=== PATIENT | female | born 1955 | race Caucasian/White ===

== ENCOUNTER → 2017-05-30 16:45 | Outpatient (CLI) | payer MEDICAID, SELFPAY ==
[2017-05-30 13:06] LABS: Vitamin D,25 Hydroxy 16.2 ng/mL (19.95-100.01)
== END ==
PROVIDERS: Family Provider Family Medicine; PCP Family Medicine; Visit Provider Family Medicine
DX: E55.9 Vitamin D deficiency, unspecified (principal)
CPT/HCPCS: 36415; 82306

== ENCOUNTER → 2017-11-28 10:45 | Outpatient (CLI) | payer MEDICAID, SELFPAY ==
[2017-11-28 13:12] LABS: Anion Gap 9 (5-15); BUN 18 mg/dL (7-18); BUN/Creat Ratio 16.7 RATIO (10-20); Calcium,Total 9.1 mg/dL (8.5-10.1); Chloride 107 mmol/L (98-107); Cholesterol 135 mg/dL (200); Creatinine, Serum 1.08 mg/dL (0.55-1.02); EST Glomerular Filtration Rate 54 mL/min (>60); Est Glom Filt Rate - Afr Amer 66 mL/min (>60); Glucose 74 mg/dL (74-106); High Density Lipoprotein 53 mg/dL; Potassium 4.4 mmol/L (3.5-5.1); Sodium Level 141 mmol/L (136-145); Triglycerides 93 mg/dL; Very Low Density Lipoprotein 19 mg/dL (5-40)
[2017-11-28 13:21] LABS: Vitamin D,25 Hydroxy 34.1 ng/mL (29.95-100.01)
== END ==
PROVIDERS: Family Provider Family Medicine; PCP Family Medicine; Visit Provider Family Medicine
DX: Z00.00 Encounter for general adult medical examination without abnormal findings (principal); E55.9 Vitamin D deficiency, unspecified
CPT/HCPCS: 36415; 80048; 80061; 82306

== ENCOUNTER → 2018-02-05 14:36 | Outpatient (CLI) | payer MEDICAID, SELFPAY ==
--- NOTE | 2018-02-05 14:39 | BI_ITS ---
MAMMOGRAPHY - BILATERAL SCREENING REASON FOR EXAM: Female, 62 years old. Routine annual screening examination. PERTINENT HISTORY: Non-contributory. TECHNIQUE: Digital bilateral breast idalia (3D mammographic acquisition) in the CC and MLO projections. 2-D mediolateral oblique (MLO) and craniocaudad (CC) views of both breasts were obtained. CAD: Full Field Digital Mammography with Computer Added Detection was performed. COMPARISON: Comparison is made with prior study dated January 24, 2017 and January 24, 2016. FINDINGS: Breast Composition: There are scattered areas of fibroglandular density. There are no dominant masses or suspicious calcifications. Stable 5 mm well-defined nodule in the upper lateral aspect of the right breast. No other significant abnormalities are identified. There has been no significant change since the prior study. BI/SCREENING MAMM (CAD), BILAT IMPRESSION: Stable bilateral screening mammogram. Yearly follow-up mammogram recommended. (A) ASSESSMENT CATEGORY: BIRADS Category 2: Benign. A letter regarding these results will be sent to the patient by the facility within 30 days. Approximately 10% of breast cancers are not detected by mammography. A normal mammogram should not delay biopsy of a clinically suspicious abnormality. [id number] Electronically Signed: Kev Menendez MD at 15:48 EDT Tel [phone], Service support ,
== END ==
PROVIDERS: Family Provider Family Medicine; PCP Family Medicine; Visit Provider Family Medicine
DX: Z12.31 Encounter for screening mammogram for malignant neoplasm of breast (principal)
CPT/HCPCS: 77063; 77067

== ENCOUNTER → 2018-08-06 | Outpatient (CLI) | payer MEDICARE, SELFPAY ==
[2018-08-09 13:08] LABS: HPV Reflexed? NOT INDICATED
== END | disposition home or self-care (01) ==
PROVIDERS: Family Provider Family Medicine; PCP Family Medicine; Referring Provider Nurse Practitioner Adult Health; Visit Provider Nurse Practitioner Adult Health
DX: Z01.419 Encounter for gynecological examination (general) (routine) without abnormal findings (principal)
CPT/HCPCS: 88175; G0145

== ENCOUNTER → 2019-02-05 15:41 | Outpatient (CLI) | payer MEDICARE, SELFPAY ==
--- NOTE | 2019-02-05 15:44 | BI_ITS ---
MAMMOGRAPHY - BILATERAL SCREENING REASON FOR EXAM: Female, 63 years old. Routine annual screening examination. PERTINENT HISTORY: Sister with breast cancer. TECHNIQUE: Digital bilateral breast eduar (3D mammographic acquisition) in the CC and MLO projections. 2-D mediolateral oblique (MLO) and craniocaudad (CC) views of both breasts were obtained. CAD: Full Field Digital Mammography with Computer Added Detection was performed. COMPARISON: Comparison is made with prior examination dated February 05, 2018 and January 24, 2017. FINDINGS: Breast Composition: There are scattered areas of fibroglandular density. There are no dominant masses or suspicious calcifications. Stable 5 mm well-defined nodule in the upper lateral aspect of the right breast. No other significant abnormalities are identified. There has been no significant change since the prior study. BI/SCREEN MAMM (CAD) W/EDUAR BILAT IMPRESSION: Stable bilateral screening mammogram. Yearly follow-up mammogram recommended. (A) ASSESSMENT CATEGORY: BIRADS Category 2: Benign. A letter regarding these results will be sent to the patient by the facility within 30 days. Approximately 10% of breast cancers are not detected by mammography. A normal mammogram should not delay biopsy of a clinically suspicious abnormality. [id number] Electronically Signed: Kev Menendez, at 8:31 EDT , Service support ,
== END ==
PROVIDERS: Family Provider Family Medicine; PCP Family Medicine; Referring Provider Nurse Practitioner Adult Health; Visit Provider Nurse Practitioner Adult Health
DX: Z12.31 Encounter for screening mammogram for malignant neoplasm of breast (principal)
CPT/HCPCS: 77063; 77067

== ENCOUNTER → 2019-05-07 16:04 | Outpatient (CLI) | payer MEDICARE, SELFPAY ==
--- NOTE | 2019-05-07 16:07 | MRI_ITS ---
STUDY: MRI BRAIN WITH AND WITHOUT CONTRAST REASON FOR EXAM: Female, 64 years old. ATAXIA -- vertigo x 1month, rt ear pain and tinnitus TECHNIQUE: Standardized multiplanar fat and water weighted pulse sequences were obtained. Dotarem 18ml iv was administered for the contrast portion of the examination. COMPARISON: 07/30/2007. FINDINGS: No intracranial mass, mass effect, or midline shift. No enhancing lesion following the administration of contrast. No territorial infarct or acute ischemia. Normal internal auditory canals bilaterally. 7th and 8th cranial nerves are unremarkable. No abnormal enhancement. Normal size of the ventricles and extra-axial spaces for the patient''s age. There are a limited number of small white matter hyperintensities, distributed throughout the deep white matter tracts of the cerebral hemispheres, consistent with mild chronic white matter ischemic changes. There is no extra-axial fluid accumulation. Normal flow voids within the major intracranial circulation suggesting patency by spin echo criteria. There is no enhancing intra-axial or extra-axial abnormality. Normal sella turcica, pituitary gland, infundibular stalk, optic chiasm and hypothalamus. Normal midbrain, kellen and medulla. Normal cerebellum. Normal basal cisterns. Normal bilateral temporal bones. No demonstrated orbital abnormality, within the constraints of a routine brain study. Normal visualized paranasal sinuses. Normal calvarium and skull base. Normal visualized soft tissue structures. Normal visualized upper cervical spine. MRI/Brain W/WO Contrast IMPRESSION: 1. Mild microvascular ischemic changes. Otherwise negative study. Normal IACs. Electronically Signed: Brittany Monge MD at 21:45 EST Tel , Service support ,
[2019-05-07 16:45] LABS: CREATININE FINGERSTICK 0.8 mg/dL (0.55-1.02); EGFR FINGERSTICK > 60.0000 mL/min (>60)
== END ==
PROVIDERS: PCP Family Medicine; Referring Provider Otolaryngology Otolaryngology/Facial Plastic Surgery; Visit Provider Otolaryngology Otolaryngology/Facial Plastic Surgery
DX: R27.0 Ataxia, unspecified (principal)
CPT/HCPCS: 70553; A9575

== ENCOUNTER → 2019-12-03 08:39 | Outpatient (CLI) | payer MEDICARE, SELFPAY ==
[2019-12-03 10:13] LABS: Anion Gap 3 (5-15); BUN 21 mg/dL (7-18); BUN/Creat Ratio 18.1 RATIO (10-20); Calcium,Total 9.3 mg/dL (8.5-10.1); Chloride 110 mmol/L (98-107); Creatinine, Serum 1.16 mg/dL (0.55-1.02); EST Glomerular Filtration Rate 50 mL/min (>60); Est Glom Filt Rate - Afr Amer 60 mL/min (>60); Glucose 93 mg/dL (74-106); Potassium 4.6 mmol/L (3.5-5.1); Sodium Level 142 mmol/L (136-145)
[2019-12-03 10:19] LABS: Vitamin D,25 Hydroxy 51.6 ng/mL
== END ==
PROVIDERS: PCP Family Medicine; Referring Provider Family Medicine; Visit Provider Family Medicine
DX: Z00.00 Encounter for general adult medical examination without abnormal findings (principal); E55.9 Vitamin D deficiency, unspecified
CPT/HCPCS: 36415; 80048; 82306

== ENCOUNTER → 2020-02-09 15:26 | Outpatient (CLI) | payer MEDICARE, SELFPAY ==
--- NOTE | 2020-02-09 15:27 | BI_ITS ---
MAMMOGRAPHY - BILATERAL SCREENING REASON FOR EXAM: Female, 64 years old. Routine annual screening examination. PERTINENT HISTORY: Sister with breast cancer. TECHNIQUE: Digital bilateral breast eduar (3D mammographic acquisition) in the CC and MLO projections. 2-D mediolateral oblique (MLO) and craniocaudad (CC) views of both breasts were obtained. CAD: Full Field Digital Mammography with Computer Added Detection was performed. COMPARISON: Comparison is made with prior study dated 02/05/2019 and 02/05/2018. FINDINGS: Breast Composition: There are scattered areas of fibroglandular density. Stable 5 mm well-defined nodule in the upper lateral aspect of the right breast. Stable benign-appearing bilateral axillary lymph nodes. There are no dominant masses or suspicious calcifications. No other significant abnormalities are identified. There has been no significant change since the prior study. BI/SCREEN MAMM (CAD) W/EDUAR BILAT IMPRESSION: Stable bilateral screening mammogram. Yearly follow-up mammogram recommended. (A) ASSESSMENT CATEGORY: BIRADS Category 2: Benign. A letter regarding these results will be sent to the patient by the facility within 30 days. Approximately 10% of breast cancers are not detected by mammography. A normal mammogram should not delay biopsy of a clinically suspicious abnormality. [id number] Electronically Signed: Kev Menendez, at 8:30 EST , Service support ,
== END ==
PROVIDERS: PCP Family Medicine; Referring Provider Family Medicine; Visit Provider Family Medicine
DX: Z12.31 Encounter for screening mammogram for malignant neoplasm of breast (principal)
CPT/HCPCS: 77063; 77067

== ENCOUNTER → 2020-12-11 08:29 | Outpatient (CLI) | payer MEDICARE, SELFPAY ==
[2020-12-11 09:26] LABS: Anion Gap 3 (5-15); BUN 21 mg/dL (7-18); BUN/Creat Ratio 17.4 RATIO (10-20); Calcium,Total 9.5 mg/dL (8.5-10.1); Chloride 110 mmol/L (98-107); Cholesterol 144 mg/dL (200); Creatinine, Serum 1.21 mg/dL (0.55-1.02); EST Glomerular Filtration Rate 47 mL/min (>60); Est Glom Filt Rate - Afr Amer 57 mL/min (>60); Glucose 94 mg/dL (74-106); High Density Lipoprotein 63 mg/dL; Potassium 4.6 mmol/L (3.5-5.1); Sodium Level 142 mmol/L (136-145); Triglycerides 81 mg/dL; Very Low Density Lipoprotein 16 mg/dL (5-40)
== END ==
PROVIDERS: PCP Family Medicine; Referring Provider Family Medicine; Visit Provider Family Medicine
DX: Z00.00 Encounter for general adult medical examination without abnormal findings (principal); Z13.6 Encounter for screening for cardiovascular disorders
CPT/HCPCS: 36415; 80048; 80061

== ENCOUNTER → 2021-02-09 09:48 | Outpatient (CLI) | payer MEDICARE, SELFPAY ==
--- NOTE | 2021-02-09 09:50 | BI_ITS ---
MAMMOGRAPHY - BILATERAL SCREENING REASON FOR EXAM: Female, 65 years old. Routine annual screening examination. PERTINENT HISTORY: Sister with breast cancer. TECHNIQUE: Digital bilateral breast eduar (3D mammographic acquisition) in the CC and MLO projections. 2-D mediolateral oblique (MLO) and craniocaudad (CC) views of both breasts were obtained. CAD: Full Field Digital Mammography with Computer Added Detection was performed. COMPARISON: Comparison is made with prior study 02/09/2020 and 02/05/2019. FINDINGS: Breast Composition: There are scattered areas of fibroglandular density. There are no dominant masses or suspicious calcifications. Slight decrease in size of the well-defined nodule in the upper lateral aspect of the right breast. It presently measures 3.5 mm. No other significant abnormalities are identified. There has been no significant change since the prior study. BI/SCRN MAMM (CAD)W/EDUAR BILAT IMPRESSION: Stable bilateral screening mammogram. Yearly follow-up mammogram recommended. (A) ASSESSMENT CATEGORY: BIRADS Category 2: Benign. A letter regarding these results will be sent to the patient by the facility within 30 days. Approximately 10% of breast cancers are not detected by mammography. A normal mammogram should not delay biopsy of a clinically suspicious abnormality. [id number] Electronically Signed: Kev Menendez MD at 10:57 EDT , Service support ,
--- NOTE | 2021-02-09 09:54 | BD_ITS ---
STUDY: DUAL ENERGY X-RAY ABSORPTIOMETRY / DXA REASON FOR EXAM: Female, 65 years old. [id number]. The patient is postmenopausal. TECHNIQUE: Bone Mineral Density (BMD) measurements of lumbar spine and bilateral hips were obtained. COMPARISON: Comparison is made with prior study dated 01/24/2017. FINDINGS: Lumbar Spine (L1-L4): g/cm2 (0.886) / T-score (-1.5) / Z-score (0.5) Findings are suggestive of osteopenia with a low fracture risk. Left Femur Total: g/cm2 (0.776) / T-score (-1.4) / Z-score (0.0) Left Femoral Neck: g/cm2 (0.723) / T-score (-1.1) / Z-score (0.5) Right Femur Total: g/cm2 (0.744) / T-score (-1.6) / Z-score (-0.2) Right Femoral Neck: g/cm2 (0.718) / T-score (-1.2) / Z-score (0.5) The T-Scores on the most recent prior examination were: Lumbar Spine (L1-L4): There has been worsening of bone density since the previous examination. Left Femur Total: which represents a worsening of 6.6%. Right Femur Total: which represents a worsening of 10.4%. BD/Dexa Bone Density Study IMPRESSION: The patient is considered osteopenic as outlined below according to World Evans Organization (WHO) criteria with a moderate fracture risk. There has been worsening of bone density since the previous examination. Reference Information: The T-score is the number of standard deviations above or below the standard which is normal for young adults at their peak bone mineral density. The World Health Organization (WHO) interprets the T-scores as follows: Above -1 Normal bone density Between -1 and -2.5 Osteopenia Equal to / or below -2.5 Osteoporosis As a practical clinical guideline, osteopenia may be graded as follows: Mild -1 through -1.5 Moderate -1.6 through -2.0 Severe -2.1 through -2.4 The Z-score is the number of standard deviations above or below age-matched controls. A Z-score of less than -1.5 would be considered abnormal. References: 1. NIH Osteoporosis and Related Bone Diseases www osteo.org 2. International Society for Clinical Densitometry www iscd.org 3. National Osteoporosis Foundation www nof.org Electronically Signed: Kev Menendez MD at 12:56 EDT , Service support ,
== END ==
PROVIDERS: PCP Family Medicine; Referring Provider Family Medicine; Visit Provider Family Medicine
DX: Z12.31 Encounter for screening mammogram for malignant neoplasm of breast (principal); N95.9 Unspecified menopausal and perimenopausal disorder
CPT/HCPCS: 77063; 77067; 77080

== ENCOUNTER → 2021-12-10 | Outpatient (CLI) | payer MEDICARE, SELFPAY ==
[2021-12-10 10:01] LABS: Anion Gap 5 (5-15); BUN 18 mg/dL (7-18); BUN/Creat Ratio 14.6 RATIO (10-20); Calcium,Total 9.6 mg/dL (8.5-10.1); Chloride 111 mmol/L (98-107); Creatinine, Serum 1.23 mg/dL (0.55-1.02); EST Glomerular Filtration Rate 46 mL/min (>60); Est Glom Filt Rate - Afr Amer 56 mL/min (>60); Glucose 98 mg/dL (74-106); Potassium 4.3 mmol/L (3.5-5.1); Sodium Level 144 mmol/L (136-145)
[2021-12-12 08:28] LABS: Vitamin D,25 Hydroxy 54.5 ng/mL
== END | disposition home or self-care (01) ==
LOC: LAB 09:06
PROVIDERS: PCP Family Medicine; Visit Provider Family Medicine
DX: Z00.00 Encounter for general adult medical examination without abnormal findings (principal); E55.9 Vitamin D deficiency, unspecified
CPT/HCPCS: 36415; 80048; 82306

== ENCOUNTER → 2022-02-10 | Outpatient (CLI) | payer MEDICARE, SELFPAY ==
--- NOTE | 2022-02-10 12:07 | BI_ITS ---
MAMMOGRAPHY - BILATERAL SCREENING REASON FOR EXAM: Female, 66 years old. Routine annual screening examination. PERTINENT HISTORY: Sister with breast cancer. TECHNIQUE: Digital bilateral breast eduar (3D mammographic acquisition) in the CC and MLO projections. 2-D mediolateral oblique (MLO) and craniocaudad (CC) views of both breasts were obtained. CAD: Full Field Digital Mammography with Computer Added Detection was performed. COMPARISON: Comparison is made with prior study 02/09/2021 and 02/09/2020 FINDINGS: Breast Composition: There are scattered areas of fibroglandular density. There are no dominant masses or suspicious calcifications. Stable 3.5 mm well-defined nodule in the anterior upper lateral aspect of the right breast. No other significant abnormalities are identified. There has been no significant change since the prior study. BI/SCRN MAMM (CAD)W/EDUAR BILAT IMPRESSION: Stable bilateral screening mammogram. Yearly follow-up mammogram recommended. (A) ASSESSMENT CATEGORY: BIRADS Category 2: Benign. A letter regarding these results will be sent to the patient by the facility within 30 days. Approximately 10% of breast cancers are not detected by mammography. A normal mammogram should not delay biopsy of a clinically suspicious abnormality. [id number] Electronically Signed: Kev Menendez MD at 13:03 EDT ,
== END | disposition home or self-care (01) ==
LOC: OPBI 12:06
PROVIDERS: PCP Family Medicine; Visit Provider Family Medicine
DX: Z12.31 Encounter for screening mammogram for malignant neoplasm of breast (principal)
CPT/HCPCS: 77063; 77067

== ENCOUNTER → 2022-12-07 | Outpatient (CLI) | payer MEDICARE, SELFPAY ==
[2022-12-07 18:40] LABS: Vitamin D,25 Hydroxy 58.4 ng/mL
[2022-12-07 18:56] LABS: Anion Gap 6 (5-15); BUN 16 mg/dL (7-18); Calcium,Total 9.5 mg/dL (8.5-10.1); Chloride 109 mmol/L (98-107); Cholesterol 135 mg/dL (200); Creatinine, Serum 1.14 mg/dL (0.55-1.02); EST Glomerular Filtration Rate 50 mL/min (>60); Est Glom Filt Rate - Afr Amer 61 mL/min (>60); Glucose 86 mg/dL (74-106); High Density Lipoprotein 65 mg/dL; Potassium 4.4 mmol/L (3.5-5.1); Sodium Level 140 mmol/L (136-145); Triglycerides 60 mg/dL; Very Low Density Lipoprotein 12 mg/dL (5-40)
== END | disposition home or self-care (01) ==
LOC: MFPLAB 14:53
PROVIDERS: PCP Family Medicine; Visit Provider Family Medicine
DX: Z13.6 Encounter for screening for cardiovascular disorders (principal); E55.9 Vitamin D deficiency, unspecified
CPT/HCPCS: 36415; 80048; 80061; 82306

== ENCOUNTER 2022-12-14 12:48 | Outpatient (RCR) | payer MEDICARE, SELFPAY ==
--- NOTE | 2022-12-14 13:46 | HP.PTEVAL_ITS ---
Patient's Visit Information Visit Information Visit Information: GLENYS LOERA is a 67 year old F referred to Physical Therapy by Dr. Rafael Graham MD with a diagnosis of dizzyness. Date of Evaluation: 12/14/22 Physical Therapist: Steve Eaton, DPT, OCS, CSCS Visit Plan Plan: No skilled PT recommended as I was unable to change her symptoms today. Balance is good considering eye problems, no symptoms change with head movements or ocular exam. Recommended return to Dr. Graham for next step as i am unable to find vestibular component to these symtoms. Subjective Subjective: Legally blind(macular degeneration) and needing someone to walk with her away from home, grandson present today. I have vertigo for a couple years. Was put on meclizine which does not help. Not sure why it started, she got up one day after sitting and felt dizzy and unsteady. Saw ENT yrs ago and had MRI and it was OK. Dizzyness is described as sometimes getting a pulsing in legs and floaty in legs. Constant. Worse with being upset or anxiety. Sitting and lying down do not effect it. No other doctors. Sometimes can get tingling in hands. Seen urgent care and put on prednisone for hand tingling and it cleared up. No cane or AD at home, balance feels normal. Not employed. Sleeping OK. Basic ADLs are getting done, dtr helps who lives with her but this is due to blindness.Makes bed, runs sweeper, does laundry in her own house. Hobbies:TV. Objective Objective: Walks into PT with short steps and slowly needing Grandson;s hand to guide her due to blindness. Transfers I slowly due to eye problems. romberg eo and ec 30 seconds easily. cervical aROM WFL and without pain UE AROM WFL reflexes 2/3 bi and triceps Sensation UE/LE WNL to gross light touch - B hallpike chelsi, - roll test. Oculomotor:(difficult wtih blindness but did well.) no nystagmus with gaze or head shake. - ocular tilt - skew eye deviaiton - head thrust unable to do DVA no problems with pursuit or saccades VOR without problems. Unable to create any change in her floating feeling today with eyes, head movements or balance. Balance/Special Test Scores Functional Gait Assessment Score: 25 % Disability: 16.6700 Rehabilitation Potential Physical Therapy Diagnosis: Unchanging dizzyness present for long time Anticipated Interventions Text: Thank you for the opportunity to evaluate your patient. For Medicare and Medicare HMO plans, please review the plan of care and approve it. It will need to be FAXED BACK to us at [phone] for Medicare purposes. For Medicare only, by signing this I certify the plan of care. Please let me know if there are questions or concerns regarding this plan of care. Physician Signature: Date:
== END 2022-12-14 19:00 | disposition home or self-care (01) ==
LOC: PT 12:48
PROVIDERS: PCP Family Medicine; Referring Provider Family Medicine; Visit Provider Family Medicine
DX: R42 Dizziness and giddiness (principal)
CPT/HCPCS: 97161

== ENCOUNTER → 2023-02-12 | Outpatient (CLI) | payer MEDICARE, SELFPAY ==
--- NOTE | 2023-02-12 13:26 | BI_ITS ---
MAMMOGRAPHY - BILATERAL SCREENING REASON FOR EXAM: Female, 67 years old. Routine annual screening examination. PERTINENT HISTORY: Sister with breast cancer. TECHNIQUE: Digital bilateral breast eduar (3D mammographic acquisition) in the CC and MLO projections. 2-D mediolateral oblique (MLO) and craniocaudad (CC) views of both breasts were obtained. CAD: Full Field Digital Mammography with Computer Added Detection was performed. COMPARISON: Comparison is made with prior study dated February 10, 2022 and February 09, 2021. FINDINGS: Breast Composition: There are scattered areas of fibroglandular density. There are no dominant masses or suspicious calcifications. Stable 3.5 mm well-defined nodule in the anterior upper lateral aspect of the right breast No other significant abnormalities are identified. There has been no significant change since the prior study. BI/SCRN MAMM (CAD)W/EDUAR BILAT IMPRESSION: Stable bilateral screening mammogram. Yearly follow-up mammogram recommended. (A) ASSESSMENT CATEGORY: BIRADS Category 2: Benign. A letter regarding these results will be sent to the patient by the facility within 30 days. Approximately 10% of breast cancers are not detected by mammography. A normal mammogram should not delay biopsy of a clinically suspicious abnormality. [id number] Electronically Signed: Kev Menendez MD at 14:51 EST ,
== END | disposition home or self-care (01) ==
LOC: OPBI 13:24
PROVIDERS: PCP Family Medicine; Referring Provider Family Medicine; Visit Provider Family Medicine
DX: Z12.31 Encounter for screening mammogram for malignant neoplasm of breast (principal)
CPT/HCPCS: 77063; 77067

== ENCOUNTER → 2023-06-04 | Outpatient (CLI) | payer MEDICARE, SELFPAY ==
--- NOTE | 2023-06-04 11:12 | RAD_ITS ---
EXAM: XR CERVICAL SPINE, 2 OR 3 VIEWS CLINICAL INDICATION: Neck pain TECHNIQUE: Frontal and lateral views of the cervical spine. COMPARISON: None or none provided. FINDINGS: VERTEBRAE: Straightening of the usual lordotic curvature. Mild retrolisthesis of the posterior margin of C3 with respect to C4 of roughly 2.7 mm, likely chronic. Marked disc space narrowing at C3-4, mild endplate sclerosis at C3-4, mild anterior spondylosis at C3-4 and C5-C7. TECHNIQUE: 4 views but 2 are similar lateral views. Lateral, AP and open-mouth odontoid views. Preserved vertebral body height. No acute fracture. No significant facet arthropathy. OTHER BONES/JOINTS: There is a shoulder prosthesis visible on the lateral view, not included on the frontal view. DISC SPACES: See above. SOFT TISSUES: Unremarkable. No prevertebral soft tissue widening. LUNG APICES: Clear. MEDIASTINUM: Unremarkable lung apices mediastinal contours. RAD/Cerv Spine 2 or 3 Views IMPRESSION: Moderate degenerative change most pronounced at C3-4. Mild C3 retrolisthesis and at least mild spinal canal presumed narrowing at this level. Electronically Signed: Nichole Jacobson MD at 3:37 EST ,
[2023-06-04 12:27] LABS: Hematocrit 40.4 % (37-47); Hemoglobin 12.9 g/dL (12.0-15.0); Mean Corp Hgb Conc 31.9 g/dL (32-36); Mean Corpuscular Hgb 28.6 pg (27.0-32.0); Mean Corpuscular Volume 89.6 fL (81-99); Mean Platelet Vol. 10.1 fl (6.2-12.0); Platelet Count 276 K/mm3 (150-450); RBC Distribution Width CV 13.9 % (11.6-14.6); RBC Distribution Width SD 45.1 fl (35.1-43.9); Red Blood Count 4.51 M/mm3 (4.2-5.4); White Blood Count 6.8 K/mm3 (4.4-11.0)
[2023-06-04 13:21] LABS: Vitamin B12 251 pg/mL (211-911)
[2023-06-04 13:39] LABS: ALB/GLOB Ratio 0.9 RATIO (0.9-2.4); AST(SGOT) 12 U/L (15-37); Alanine Aminotransfer ALT/SGPT 16 U/L (13-56); Albumin, Serum 3.5 g/dL (3.2-5.0); Alkaline Phosphatase 64 U/L (45-117); Anion Gap 4 (5-15); BUN 23 mg/dL (7-18); BUN/Creat Ratio 18.5 RATIO (10-20); Chloride 115 mmol/L (98-107); Creatinine, Serum 1.24 mg/dL (0.55-1.02); EST Glomerular Filtration Rate 45 mL/min (>60); Est Glom Filt Rate - Afr Amer 55 mL/min (>60); Globulin 3.8 g/dL (2.2-4.2); Glucose 92 mg/dL (74-106); Potassium 4.2 mmol/L (3.5-5.1); Protein, Total 7.3 g/dL (6.4-8.2); Sodium Level 143 mmol/L (136-145); Thyroid Stim Hormone (TSH) 2.85 uIU/mL (0.358-3.74)
--- OUTSIDE RECORDS SUMMARY | 2023-06-04 18:43 | XMS RPT_ITS | CCD ---
Author Name Unknown Address [address] [place] [address] Organization [facility] Care Team Providers Care Box Builder Name Role Phone Rafael Herrera MD Primary Care Provider RAFAEL HERRERA Primary Care Unavailable RAFAEL HRERERA Primary Care Unavailable RIVKA ALLISON Attending Unavailable RIVKA ALLISON Referring Unavailable RAFAEL HERRERA Primary Care Unavailable Allergies Allergy Classification Reported Allergen(s) Allergy Type Date of Onset Reaction(s) Facility (1 source) levoFLOXacin; Translations: [LEVOFLOXACIN] Drug Allergy 07-08-2015 [facility] Repository Medications Current Medications Medication Drug Class(es) Dates Sig (Normalized) Sig (Original) predniSONE 20 mg oral tablet (1 source) Start: 11-18-2021 End: 11-23-2021 take 2 tablets by mouth once daily predniSONE (DELTASONE) 20 mg tablet Indications: History of COPD , Acute effusion of right ear Take 2 tablets by mouth once daily for 5 days. 10 tablet 0 11/18/2021 11/23/2021 Active Completed/Discontinued Medications Medication Drug Class(es) Dates Sig (Normalized) Sig (Original) albuterol 0.83 mg/ml inhalation solution (1 source) beta2-Adrenergic Agonist Start: 05-09-2020 albuterol (PROVENTIL) 2.5 mg /3 mL (0.083 %) nebulizer solution Budesonide / formoterol (1 source) Corticosteroid, beta2-Adrenergic Agonist Start: 06-02-2020 take 2 puff(s) by inhalation twice daily budesonide-formot ashok (SYMBICORT) 160-4.5 mcg/actuation inhaler Inhale 2 Puffs as instructed twice daily. 0 06/02/2020 Active Problems Active Problems Problem Classification Problem Date Documented Date Episodic/Chronic Other lower respiratory disease (1 source) History of chronic obstructive airway disease; Translations: [Personal history of other diseases of the respiratory system] Episodic Other non-traumatic joint disorders (1 source) Effusion, right hand; Translations: [Swelling of joint, hand, right] Onset: 09-02-2022 Episodic Other non-traumatic joint disorders (1 source) Effusion, right wrist; Translations: [Wrist swelling, right] Onset: 09-02-2022 Episodic Other upper respiratory infections (1 source) Acute upper respiratory infection; Translations: [Acute upper respiratory infection, unspecified] Episodic Otitis media and related conditions (1 source) Acute transudative otitis media; Translations: [Other acute nonsuppurative otitis media, right ear] Episodic Unclassified (1 source) Post-viral cough syndrome; Translations: [Post-viral cough syndrome] Onset: 09-02-2022 Past or Other Problems Problem Classification Problem Date Documented Da te Episodic/Chronic Biliary tract disease (1 source) Acute cholecystitis; Translations: [Acute cholecystitis] Onset: 01-04-2009 01-04-2009 Episodic Results Test Name Value Interpretation Reference Range Facil ity Vital Signs Date Time Vital Sign Value Performing Clinician Faci deynsy 11-18-2021 11:18-0400 Body temperature 96.49 [degF] Kareem Gaviria APRN.CNP Work Phone: [facility] 11-18-2021 11:18-0400 Body weight 85.46 kg Kareem Gaviria APRN.CNP Work Phone: [facility] 11-18-2021 11:18-0400 Diastolic blood pressure 82 mm[Hg] Kareem Gaviria APRN.CNP Work Phone: [facility] 11-18-2021 11:18-0400 Heart rate 79 /min Kareem Gaviria APRN.CNP Work Phone: [facility] 11-18-2021 11:18-0400 Respiratory rate 20 /min Kareem Gaviria APRN.CNP Work Phone: [facility] 11-18-2021 11:18-0400 SaO2% (BldA) [Mass fraction] 96 % Kareem Gaviria APRN.CNP Work Phone: [facility] 11-18-2021 11:18-0400 Systolic blood pressure 122 mm[Hg] Kareem Gaviria APRN.CNP Work Phone: [facility] Encounters Encounter Date Encounter Type Care Provider Facility Start: 09-02-2022 End: 09-03-2022 ambulatory RAFAEL HERRERA Facility:[facility] Start: 11-18-2021 End: 11-18-2021 ambulatory RAFAEL Graciela SHARON Facility:[facility] Start: 11-18-2021 End: 11-18-2021 Patient encounter procedure Kareem Gaviria APRN.CNP Work Phone: [facility] Procedures Date Procedure Procedure Detail Performing Clinician Start: 06-05-2005 Mammography Kareem wheat APRN.CNP Work Phone: Plan of Treatment Date Care Activity Detail Author Start: 12-08-2021 Influenza vaccination INFLUENZA (#1) [facility] Start: 07-11-2021 COVID-19 VACCINE (4 - Booster for Pfizer series) COVID-19 VACCINE (4 - Booster for Pfizer series) [facility] Start: 04-09-2021 ADVANCE DIRECTIVE DISCUSSION ADVANCE DIRECTIVE DISCUSSION [facility] Start: 2018 BONE DENSITY BONE DENSITY [facility] Start: 06-05-2006 Mammography MAMMOGRAM [facility] Start: 2003 SHINGRIX VACCINE (1 of 2) SHINGRIX V ACCINE (1 of 2) [facility] Start: 1998 COLOGUARD (FIT-DNA) COLOGUARD (FIT-D NA) [facility] Start: 1998 Colonoscopy COLONOSCOPY [facility] Start: 1998 COLORECTAL CANCER SCREENING COLORECTAL CANCER SCREENING [facility] Start: [address]GR[address] [facility] Start: 1998 DIABETES SCREEN DIABETES SCREEN [facility] Start: 1998 FECAL OCCULT BLOOD FECAL OCCULT BLOO D [facility] Start: 1998 LIPID SCREEN LIPID SCREEN [facility] Start: 1998 SIGMOIDOSCOPY SIGMOIDOSCOPY [facility] Start: 1972 Urine microalbumin profile DTAP,TDAP ,TD (1 - Tdap) [facility] Start: 1971 HEPATITIS C SCREENING HEPATITIS C SC MYCHAL [facility] Start: 1965 Adult depression scr roni assessment DEPRESSION SCREENING [facility] Start: 1959 PNEUMOCOCCAL: 65+ (1 - PCV) PNEUMOCOCCAL: 65+ (1 - PCV) [facility] Payers Date Payer Category Payer Unknown [employer] H[employer] [id number] 2018-Present [phone] [address] [place] [address] O [id number] 2018 Unknown [id number] Social History Date Type Detail Facility Start: 11-18-2021 Tobacco smoking stat [facility] Smokes tobacco daily [facility] History of tobacco use Cigarette Smoker [facility] Start: 11-18-2021 Cigarettes smoked current (pack per day) - Reported 1 [facility] Start: 11-18-2021 Tobacco use and exposure Smokeless tobacco non-user [facility] Start: 11-18-2021 Alcohol intake Current drinke r of alcohol (finding) [facility] Start: 1955 Sex Assigned At Not on file [facility] Start: 11-08-2021 End: 11-18-2021 Exposure to SARS-CoV-2 (event) Not sure [facility] Work Phone: Progress note 09-02-2022 Note Date & Type Note Facility 09-02-2022 Note HNO ID: [id number] Author: Rivka Allison APRN.FARM MANAGEMENT TEACHER Service: ? Author Type: Nurse Practitioner Type: Progress Notes Filed: 09/02/2022 12:35 PM Note Text: Subjective Cough Pertinent negatives include no chills, no sore throat and no shortness of breath. Deidra Vang is a 67 year old female who presents with right wrist and hand swelling for the past few days. Denies any injury. States the hand and wrist is tender, increased pain with wrist movement. She has taken OTC pain reliever at home. She also complains of a cough. This has been present for about a week. States she was sick a week ago with URI symptoms which have improved but does have a lingering cough. Denies chest pain or shortness of breath. She is not taking any medication for her cough. Review of Systems Constitutional: Negative for chills and fever. HENT: Negative for congestion and sore throat. Respiratory: Positive for cough. Negative for shortness of breath. Musculoskeletal: Positive for joint pain. Negative for falls. See HPI Skin: Negative for itching and rash. BP 142/82 Pulse 85 Temp 36.5 ?C (97.7 ?F) (Tympanic) Resp 18 Wt 82.7 kg (182 lb 6.4 oz) SpO2 96% PAST MEDICAL HISTORY Diagnosis Date NONE PAST SURGICAL HISTORY Procedure Laterality Date LAPS ABD PRTMANDOMENTUM DX W/WO SPEC BR/WA SPX Laparoscopy LAPS SURG CHOLECYSTECTOMY W/CHOLANGIOGRAPHY failed IOC PAST SURGICAL HISTORY OF left shoulder-metal pin ALLERGIES Levofloxacin MEDICATIONS fluticasone (FLONASE) 50 mcg/actuation nasal spray Use 2 Sprays in each nostril once daily. Rinse mouth after use. albuterol (PROVENTIL) 2.5 mg /3 mL (0.083 %) nebulizer solution budesonide-formoterol (SYMBICORT) 160-4.5 mcg/actuation inhaler Inhale 2 Puffs as instructed twice daily. cetirizine (ZYRTEC) 10 mg tablet Take 10 mg by mouth once daily. Vit A,C,N-Rrsn-Sjadwu (PRESERVISION AREDS) 14,320-226-200 odel-ee-jjug cap Take 1 capsule by mouth once daily. predniSONE (DELTASONE) 20 mg tablet Take 2 tablets by mouth once daily for 4 days. Take daily with food. omeprazole(PRILOSEC 20 MG CAP) Take one(1) capsule daily. (Patient not taking: Reported on 11/18/2021) FAMILY HISTORY Problem Relation Age of Onset Diabetes Mother Heart Mother pacemaker other (Other [Other]) Mother depression Hypertension Father Social History Tobacco Use Smoking status: Every Day Packs/day: 1.00 Years: 15.00 Pack years: 15.00 Types: Cigarettes Smokeless tobacco: Never Substance Use Topics Alcohol use: Yes Comment: occasionally Drug use: No Objective Physical Exam Vitals and nursing note reviewed. Constitutional: General: She is not in acute distress. Appearance: Normal appearance. She is not ill-appearing. HENT: Right Ear: Tympanic membrane, ear canal and external ear normal. Left Ear: Tympanic membrane, ear canal and external ear normal. Nose: Nose normal. Mouth/Throat: Mouth: Mucous membranes are moist. Pharynx: Oropharynx is clear. Uvula midline. Cardiovascular: Rate and Rhythm: Normal rate and regular rhythm. Heart sounds: Normal heart sounds. Pulmonary: Effort: Pulmonary effort is normal. No respiratory distress. Breath sounds: Normal breath sounds. No wheezing or rales. Musculoskeletal: General: Swelling and tenderness present. No deformity or signs of injury. Right wrist: Swelling and tenderness present. No deformity, effusion, lacerations, bony tenderness, snuff box tenderness or crepitus. Decreased range of motion. Normal pulse. Right hand: Swelling present. No deformity, tenderness or bony tenderness. Decreased range of motion. Normal strength. Normal sensation. Normal capillary refill. Normal pulse. Cervical back: Neck supple. Lymphadenopathy: Cervical: No cervical adenopathy. Skin: General: Skin is warm and dry. Capillary Refill: Capillary refill takes less than 2 seconds. Findings: No erythema or rash. Neurological: Mental Status: She is alert. ASSESSMENT/PLAN: 1. Swelling of joint, hand, right - ICD9: 719.04, ICD10: M25.441 (primary diagnosis) - suspect gout - XR HAND GENERAL 3V PA/LAT/OBL RIGHT - PREDNISONE 20 MG TABLET 2. Wrist swelling, right - ICD9: 719.03, ICD10: M25.431 - XR WRIST GENERAL 3V PA/LAT/OBL RIGHT Radiologist IMPRESSION: No acute osseous abnormality in the right hand and wrist. Diffuse swelling. Quantitative Equity Head: TONY Transcribe Date/Time: Sep 02 2022 11:41A Dictated by : SHANA MORGAN MD - PREDNISONE 20 MG TABLET - elevate hand and wrist, may apply ice pack for comfort. - may take tylenol, avoid NSAIDS while on prednisone. 3. Post-viral cough syndrome - ICD9: 786.2, ICD10: R05.8 - PREDNISONE 20 MG TABLET - Follow-up with your PCP in 3-5 days if symptoms have not improved or sooner if symptoms worsen - Discussed red flags and need for immediate medical evaluation if any occur. - Discussed supportive care treatment wi (more content not included)... [facility] Progress note 09-02-2022 Note Date & Type Note Facility 09-02-2022 Note HNO ID: [id number] Author: RT Amie(R) Service: Radiology Author Type: Technologist Type: Progress Notes Filed: 09/02/2022 10:26 AM Note Text: Radiology Service Progress Note PATIENT NAME: Deidra Vang DATE OF SERVICE: September 02, 2022 TIME: 10:14 AM PATIENT IDENTITY VERIFICATION COMPLETED USING TWO (2) IDENTIFIERS: Name and Date of confirmed by patient verbally. FALL SCREENING: Has the patient had 2 falls in the last year or 1 fall with injury or currently using an Ambulatory Assistive Device (Walker, Cane, Wheelchair, Crutches, etc.)? No PATIENT GENDER DATA: Female. status: : No status: NO. PATIENT RELEVANT IMPLANT DATA REVIEWED: Yes RADIOLOGY DEPARTMENT: General X-ray: Exam(s) Completed: Upper Extremity X-Ray(s): Wrist, right and Hand, right PERIPHERAL IV DATA: Not applicable SIGNED BY: RT Amie(R) September 02, 2022 10:14 AM [facility] Progress note 11-18-2021 Note Date & Type Note Facility 11-18-2021 Note HNO ID: [id number] Author: Kareem Gaviria APRN.FARM MANAGEMENT TEACHER Service: ? Author Type: Nurse Practitioner Type: Progress Notes Filed: 11/18/2021 11:46 AM Note Text: Subjective HPI HPI Deidra Vang is a 66 year old female who presents today for CC of congestion, cough right ear pain. This started 4 days ago. Has tried otc medication for relief. Symptoms are worsened by nothing. Risk factors no known sick exposures. Denies cp/sob, n/v/d, ear drainage. .Patient presents with: Nasal Congestion: R ear pain, sinus pain and pressure, LAUREANO, cough x4 days PAST MEDICAL HISTORY Diagnosis Date NONE PAST SURGICAL HISTORY Procedure Laterality Date LAPS ABD PRTMANDOMENTUM DX W/WO SPEC BR/WA SPX Laparoscopy LAPS SURG CHOLECYSTECTOMY W/CHOLANGIOGRAPHY failed IOC PAST SURGICAL HISTORY OF left shoulder-metal pin ALLERGIES Patient has no known allergies. MEDICATIONS albuterol (PROVENTIL) 2.5 mg /3 mL (0.083 %) nebulizer solution budesonide-formoterol (SYMBICORT) 160-4.5 mcg/actuation inhaler Inhale 2 Puffs as instructed twice daily. cetirizine (ZYRTEC) 10 mg tablet Take 10 mg by mouth once daily. Vit A,C,N-Ding-Hxualn (PRESERVISION AREDS) 14,320-226-200 anro-cu-rrqw cap Take 1 capsule by mouth once daily. predniSONE (DELTASONE) 20 mg tablet Take 2 tablets by mouth once daily for 5 days. fluticasone (FLONASE) 50 mcg/actuation nasal spray Use 2 Sprays in each nostril once daily. Rinse mouth after use. omeprazole(PRILOSEC 20 MG CAP) Take one(1) capsule daily. (Patient not taking: Reported on 11/18/2021) FAMILY HISTORY Problem Relation Age of Onset Diabetes Mother Heart Mother pacemaker other (Other [Other]) Mother depression Hypertension Father Social History Tobacco Use Smoking status: Every Day Packs/day: 1.00 Years: 15.00 Pack years: 15.00 Types: Cigarettes Smokeless tobacco: Never Substance Use Topics Alcohol use: Yes Comment: occasionally Drug use: No ROS Objective Blood pressure 122/82, pulse 79, temperature (!) 35.8 ?C (96.5 ?F), resp. rate 20, weight 85.5 kg (188 lb 6.4 oz), SpO2 96 %. Physical Exam Constitutional: General: She is not in acute distress. Appearance: She is not toxic-appearing or diaphoretic. HENT: Head: Normocephalic and atraumatic. Right Ear: Hearing, ear canal and external ear normal. A middle ear effusion (clear fluid behind) is present. Tympanic membrane is not perforated, erythematous or bulging. Left Ear: Hearing, tympanic membrane, ear canal and external ear normal. Nose: Nose normal. Mouth/Throat: Pharynx: Uvula midline. No pharyngeal swelling, oropharyngeal exudate, posterior oropharyngeal erythema or uvula swelling. Eyes: General: Lids are normal. No scleral icterus. Right eye: No discharge. Left eye: No discharge. Conjunctiva/sclera: Conjunctivae normal. Pupils: Pupils are equal, round, and reactive to light. Neck: Trachea: Trachea normal. Cardiovascular: Rate and Rhythm: Normal rate and regular rhythm. Heart sounds: Normal heart sounds. Pulmonary: Effort: Pulmonary effort is normal. Breath sounds: Normal breath sounds. Comments: Loose cough noted. Musculoskeletal: Cervical back: Normal range of motion and neck supple. Lymphadenopathy: Cervical: No cervical adenopathy. Right cervical: No superficial cervical adenopathy. Left cervical: No superficial cervical adenopathy. Skin: Findings: No rash. Neurological: Mental Status: She is alert and oriented to person, place, and time. ASSESSMENT/PLAN: 1. URI, acute - ICD9: 465.9, ICD10: J06.9 (primary diagnosis) - Discussed viral etiology and rationale for treatment. - Symptomatic treatment with prn analgesia - Supportive care with fluids and rest - Follow up in 3-5 days if symptoms persist or sooner if worsening of symptoms Discussed quarantine, social distancing otc medications discussed Push fluids -If you experience chest pain/shortness of breath go to ER Declines covid testing. - FLUTICASONE PROPIONATE 50 MCG/ACTUATION NASAL SPRAY,SUSPENSION 2. History of COPD - ICD9: V12.69, ICD10: Z87.09 Steroid ordered, continue inhalers. -If you experience chest pain/shortness of breath go to ER - PREDNISONE 20 MG TABLET 3. Acute effusion of right ear - ICD9: 381.00, ICD10: H65.191 - The patient should also be given OTC decongestants prn for the first 5-7 days of treatment. - Supportive care with plenty of fluids, rest, and analgesia prn. - Follow up in 3-5 days if symptoms persist or worsen. Fluticasone ordered. - PREDNISONE 20 MG TABLET - FLUTICASONE PROPIONATE 50 MCG/ACTUATION NASAL SPRAY,SUSPENSION Agrees to plan Kareem Gaviria APRN.[place] [facility] History of Present illness Narrative 11-18-2021 Kareem Gaviria APRN.[place] - 11/18/2021 11:42 AM EDT Note Date & Type Note Facility 11-18-2021 History of Presen t illness Narrative Subjective HPI HPI Deidra Vang is a 66 year old female who presents today for CC of congestion, cough right ear pain. This started 4 days ago. Has tried otc medication for relief. Symptoms are worsened by nothing. Risk factors no known sick exposures. Denies cp/sob, n/v/d, ear drainage. .Patient presents with: Nasal Congestion: R ear pain, sinus pain and pressure, LAUREANO, cough x4 days PAST MEDICAL HISTORY Diagnosis Date NONE PAST SURGICAL HISTORY Procedure Laterality Date LAPS ABD PRTM&OMENTUM DX W/WO SPEC BR/WA SPX Laparoscopy LAPS SURG CHOLECYSTECTOMY W/CHOLANGIOGRAPHY failed IOC PAST SURGICAL HISTORY OF left shoulder-metal pin ALLERGIES Patient has no known allergies. MEDICATIONS albuterol (PROVENTIL) 2.5 mg /3 mL (0.083 %) nebulizer solution budesonide-formoterol (SYMBICORT) 160-4.5 mcg/actuation inhaler Inhale 2 Puffs as instructed twice daily. cetirizine (ZYRTEC) 10 mg tablet Take 10 mg by mouth once daily. Vit A,C,K-Tmqv-Vdjlnw (PRESERVISION AREDS) 14,320-226-200 dygc-yf-gopz cap Take 1 capsule by mouth once daily. predniSONE (DELTASONE) 20 mg tablet Take 2 tablets by mouth once daily for 5 days. fluticasone (FLONASE) 50 mcg/actuation nasal spray Use 2 Sprays in each nostril once daily. Rinse mouth after use. omeprazole(PRILOSEC 20 MG CAP) Take one(1) capsule daily. (Patient not taking: Reported on 11/18/2021) FAMILY HISTORY Problem Relation Age of Onset Diabetes Mother Heart Mother pacemaker other (Other [Other]) Mother depression Hypertension Father Social History Tobacco Use Smoking status: Every Day Packs/day: 1.00 Years: 15.00 Pack years: 15.00 Types: Cigarettes Smokeless tobacco: Never Substance Use Topics Alcohol use: Yes Comment: occasionally Drug use: No ROS Objective Blood pressure 122/82, pulse 79, temperature (!) 35.8 C (96.5 F), resp. rate 20, weight 85.5 kg (188 lb 6.4 oz), SpO2 96 %. Physical Exam Constitutional: General: She is not in acute distress. Appearance: She is not toxic-appearing or diaphoretic. HENT: Head: Normocephalic and atraumatic. Right Ear: Hearing, ear canal and external ear normal. A middle ear effusion (clear fluid behind) is present. Tympanic membrane is not perforated, erythematous or bulging. Left Ear: Hearing, tympanic membrane, ear canal and external ear normal. Nose: Nose normal. Mouth/Throat: Pharynx: Uvula midline. No pharyngeal swelling, oropharyngeal exudate, posterior oropharyngeal erythema or uvula swelling. Eyes: General: Lids are normal. No scleral icterus. Right eye: No discharge. Left eye: No discharge. Conjunctiva/sclera: Conjunctivae normal. Pupils: Pupils are equal, round, and reactive to light. Neck: Trachea: Trachea normal. Cardiovascular: Rate and Rhythm: Normal rate and regular rhythm. Heart sounds: Normal heart sounds. Pulmonary: Effort: Pulmonary effort is normal. Breath sounds: Normal breath sounds. Comments: Loose cough noted. Musculoskeletal: Cervical back: Normal range of motion and neck supple. Lymphadenopathy: Cervical: No cervical adenopathy. Right cervical: No superficial cervical adenopathy. Left cervical: No superficial cervical adenopathy. Skin: Findings: No rash. Neurological: Mental Status: She is alert and oriented to person, place, and time. ASSESSMENT/PLAN: 1. URI, acute - ICD9: 465.9, ICD10: J06.9 (primary diagnosis) - Discussed viral etiology and rationale for treatment. - Symptomatic treatment with prn analgesia - Supportive care with fluids and rest - Follow up in 3-5 days if symptoms persist or sooner if worsening of symptoms Discussed quarantine, social distancing otc medications discussed Push fluids -If you experience chest pain/shortness of breath go to ER Declines covid testing. - FLUTICASONE PROPIONATE 50 MCG/ACTUATION NASAL SPRAY,SUSPENSION 2. History of COPD - ICD9: V12.69, ICD10: Z87.09 Steroid ordered, continue inhalers. -If you experience chest pain/shortness of breath go to ER - PREDNISONE 20 MG TABLET 3. Acute effusion of right ear - ICD9: 381.00, ICD10: H65.191 - The patient should also be given OTC decongestants prn for the first 5-7 days of treatment. - Supportive care with plenty of fluids, rest, and analgesia prn. - Follow up in 3-5 days if symptoms persist or worsen. Fluticasone ordered. - PREDNISONE 20 MG TABLET - FLUTICASONE PROPIONATE 50 MCG/ACTUATION NASAL SPRAY,SUSPENSION Agrees to plan Kareem Gaviria APRN.FARM MANAGEMENT TEACHER documented in this encounter [facility] Evaluation note Note Date & Type Note Facility documented in this encounter [facility] Summary Purpose Family History No Family History Records Found Advance Directives No Advanced Directives Records Found Additional Source Comments Source Comments (unrecognize d section and content) In the event this informatio n is protected by the Federal Confidentiality of Alcohol and Drug Abuse Patient Records regulations: The Federal rules restrict any use of the information to criminally investigate or prosecute any alcohol or drug abuse patient.[facility] Reason for Visit (unrecogniz ed section and content) Care Teams (unrecognized sec tion and content) INFORMATION SOURCE (unrecogn ized section and content) FOR RECORDS PERTAINING TO PATIENTS WHO ARE OR HAVE BEEN ENROLLED IN A CHEMICAL DEPENDENCY/SUBSTANCEABUSE PROGRAM, SOME INFORMATION MAY BE OMITTED. This clinical summary was aggregated from multiple sources. Caution should be exercised in using it in the provision of clinical care. This summary normalizes information from multiple sources, and as a consequence, information in this document may materially change the coding, format and clinical context of patient data. In addition, data may be omitted in some cases. CLINICAL DECISIONS SHOULD BE BASED ON THE PRIMARY CLINICAL RECORDS. [employer] provides no warranty or guarantee of the accuracy or completeness of information in this document.
[2023-06-06 12:09] LABS: Vitamin D 1,25-Dihydroxy 24.7 pg/mL (24.8-81.5)
[2023-06-08 02:09] LABS: Free Lambda Light Chains 78.1 mg/L (5.7-26.3); Vitamin B1, Thiamine 100.8 nmol/L (66.5-200.0)
== END | disposition home or self-care (01) ==
LOC: MTLAB 11:11
PROVIDERS: PCP Family Medicine; Referring Provider Psychiatry & Neurology Neurology; Visit Provider Psychiatry & Neurology Neurology
DX: M54.2 Cervicalgia (principal); G62.9 Polyneuropathy, unspecified; Z86.39 Personal history of other endocrine, nutritional and metabolic disease; R42 Dizziness and giddiness
CPT/HCPCS: 36415; 72040; 80053; 82607; 82652; 82746; 83883; 84425; 84443; 85027

== ENCOUNTER → 2023-06-11 | Outpatient (CLI) | payer MEDICARE, SELFPAY ==
--- NOTE | 2023-06-11 16:03 | CT_ITS ---
INDICATION: Evaluate for vertebrobasilar insufficiency EXAMINATION: CT BRAIN WITHOUT CONTRAST, CTA HEAD, AND CTA NECK TECHNIQUE: Noncontrast axial images were obtained of the brain. Subsequently, routine carotid CT angiogram protocol was performed without and with IV contrast. In addition, images were obtained of the [place] of [place]. NASCET criteria using the distal ICAs for comparison were used for evaluation of stenoses. 3D reconstructions were reviewed. A radiation dose optimization technique was used for this scan. IV Contrast dosage and agent: 100 cc of Isovue-370 COMPARISON: No relevant prior comparison study available FINDINGS: --CT BRAIN WITHOUT CONTRAST: BRAIN PARENCHYMA: No intra- or extra-axial hemorrhage. No evidence of acute infarct. No intracranial mass or mass effect. There is preservation of the wylie/white matter interface. Posterior fossa structures are unremarkable. Mild chronic periventricular deep white matter changes likely due to mild microvascular disease. CSF SPACES: Appropriate for age. No hydrocephalus. Basal cisterns are patent. CALVARIUM, SKULL BASE, PARANASAL SINUSES AND MASTOID AIR CELLS: Clear. No discrete lytic or blastic abnormalities. --CTA NECK: AORTIC ARCH AND BRANCHES: Normal anatomy, patent. RIGHT CCA: No occlusion, significant stenosis or dissection. RIGHT ICA: No occlusion, significant stenosis or dissection. RIGHT ECA: Atherosclerotic opacifications at this origin with mild stenosis. LEFT CCA: No occlusion, significant stenosis or dissection. LEFT ICA: No occlusion, significant stenosis or dissection. LEFT ECA: Atherosclerotic calcifications at its origin with mild stenosis. RIGHT VERTEBRAL ARTERY: No occlusion, significant stenosis or dissection. LEFT VERTEBRAL ARTERY: No occlusion, significant stenosis or dissection. NECK SOFT TISSUES: Unremarkable. --CTA HEAD: --Anterior circulation: ICAs: No significant stenosis at the intracranial/visualized segments. ACAs: No significant stenosis at the visualized segments. ACOM: Present. MCAs: No significant stenosis at the visualized segments. --Posterior circulation: PCOMs: origin of the left posterior cerebral artery. Right P-comm faintly visualized. ampoule filler and sealer: No significant stenosis at the visualized segments. BASILAR ARTERY: No significant stenosis. VERTEBRAL ARTERIES: Bilateral vertebral arteries with dominant left side. Narrowed distal aspect of the right vertebral artery. No evidence of intracranial aneurysm or vascular malformation. CT/CTA Head AND Neck W/ Contrast IMPRESSION: 1. Unremarkable common and internal carotid arteries. 2. Patent bilateral vertebral arteries with dominant left vertebral artery distally. 3. No intracranial great vessel stenosis. 4. No evidence of aneurysm. Electronically Signed: Chidi Lambert MD at 11:50 EST ,
== END | disposition home or self-care (01) ==
LOC: CT 16:01
PROVIDERS: PCP Family Medicine; Referring Provider Psychiatry & Neurology Neurology; Visit Provider Psychiatry & Neurology Neurology
DX: R42 Dizziness and giddiness (principal)
CPT/HCPCS: 70496; 70498; Q9967

== ENCOUNTER → 2023-06-18 | Outpatient (CLI) | payer MEDICARE, SELFPAY ==
--- NOTE | 2023-06-18 16:28 | MRI_ITS ---
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 CONTRAST: IV 16cc Clariscan COMPARISON: No relevant prior studies available. FINDINGS: BRAIN AND EXTRA-AXIAL SPACES: Several small foci of increased T2 signal intensity within the cerebral white matter suggestive of chronic microvascular change. No abnormal contrast enhancement. No intra- or extra-axial hemorrhage. No evidence of acute infarct. No intracranial mass or mass effect. There is preservation of the wylie/white matter interface. Posterior fossa structures are unremarkable. Ventricles are appropriate for age. No hydrocephalus. Basal cisterns are patent. SELLA: Normal. Normal sella turcica, pituitary gland, infundibular stalk, optic chiasm and hypothalamus. AUDITORY SYSTEM: Normal. The internal auditory canals are patent. BONES/JOINTS: Intact calvarium. SINUSES: Unremarkable as visualized. Clear. MASTOID AIR CELLS: Unremarkable as visualized. Clear. ORBITS: Unremarkable as visualized. Both globes, extraocular muscles, optic nerves and retrobulbar fat appear unremarkable. VASCULATURE: Unremarkable as visualized. Normal flow voids in the major intracranial circulation. MRI/Brain W/WO Contrast IMPRESSION: No acute intracranial abnormality. Normal posterior fossa. Electronically Signed: Chris Hopper MD at 17:02 EDT ,
--- OUTSIDE RECORDS SUMMARY | 2023-06-18 21:17 | XMS RPT_ITS | CCD ---
Author Name Unknown Address [address] [place] [address] Organization [facility] Care Team Providers Care Supercharge Repair Supervisor Name Role Phone Rafael Herrera MD Primary Care Provider RAFAEL HERRERA Primary Care Unavailable RAFAEL HERRERA Primary Care Unavailable RIVKA ALLISON Attending Unavailable RIVKA ALLISON Referring Unavailable RAFAEL HERRERA Primary Care Unavailable Allergies Allergy Classification Reported Allergen(s) Allergy Type Date of Onset Reaction(s) Facility (1 source) levoFLOXacin; Translations: [LEVOFLOXACIN] Drug Allergy 07-08-2015 [facility] Repository Medications Current Medications Medication Drug Class(es) [...] Time Vital Sign Value Performing Clinician Faci denysy 11-18-2021 11:18-0400 Body temperature 96.49 [degF] Kareem Gaviria APRN.CNP Work Phone: [facility] 11-18-2021 11:18-0400 Body weight 85.46 kg Kareem Gaviria APRN.CNP Work Phone: [facility] 11-18-2021 11:18-0400 Diastolic blood pressure 82 mm[Hg] Kareem Gaviria APRN.CNP Work Phone: [facility] 11-18-2021 11:18-0400 Heart rate 79 /min Kareem Gaviria APRN.CNP Work Phone: [facility] 11-18-2021 11:18-0400 Respiratory rate 20 /min Kareem Gaviria APRN.CNP Work Phone: [facility] 11-18-2021 11:18-0400 SaO2% (BldA) [Mass fraction] 96 % Kareem Gaviria APRN.CNP Work Phone: [facility] 11-18-2021 11:18-0400 Systolic blood pressure 122 mm[Hg] Kareem Gaviria APRN.CNP Work Phone: [facility] Encounters Encounter Date Encounter Type Care Provider Facility Start: 09-02-2022 End: 09-03-2022 ambulatory RAFAEL HERRERA Facility:[facility] Start: 11-18-2021 End: 11-18-2021 ambulatory RAFAEL Graciela SHARON Facility:[facility] Start: 11-18-2021 End: 11-18-2021 Patient encounter procedure Kareem Gaviria APRN.CNP Work Phone: [facility] Procedures Date Procedure Procedure Detail Performing Clinician Start: 06-05-2005 Mammography Kareem wheat APRN.CNP Work Phone: Plan of Treatment Date Care Activity Detail Author Start: 12-08-2021 Influenza vaccination INFLUENZA (#1) [facility] Start: 07-11-2021 COVID-19 VACCINE (4 - Booster for Pfizer series) COVID-19 VACCINE (4 - Booster for Pfizer series) [facility] Start: 04-09-2021 ADVANCE DIRECTIVE DISCUSSION ADVANCE DIRECTIVE DISCUSSION [facility] Start: 2018 BONE DENSITY BONE DENSITY [facility] Start: 06-05-2006 Mammography MAMMOGRAM [facility] Start: 2003 SHINGRIX VACCINE (1 of 2) SHINGRIX V ACCINE (1 of 2) [facility] Start: 1998 COLOGUARD (FIT-DNA) COLOGUARD (FIT-D NA) [facility] Start: 1998 Colonoscopy COLONOSCOPY [facility] Start: 1998 COLORECTAL CANCER SCREENING COLORECTAL CANCER SCREENING [facility] Start: [address] COLONOGRAPHY [facility] Start: 1998 DIABETES SCREEN DIABETES SCREEN [facility] Start: 1998 FECAL OCCULT BLOOD FECAL OCCULT BLOO D [facility] Start: 1998 LIPID SCREEN LIPID SCREEN [facility] Start: 1998 SIGMOIDOSCOPY SIGMOIDOSCOPY [facility] Start: 1972 Urine microalbumin profile DTAP,TDAP ,TD (1 - Tdap) [facility] Start: 1971 HEPATITIS C SCREENING HEPATITIS C SC MYCHAL [facility] Start: 1965 Adult depression scr roni assessment DEPRESSION SCREENING [facility] Start: 1959 PNEUMOCOCCAL: 65+ (1 - PCV) PNEUMOCOCCAL: 65+ (1 - PCV) [facility] Payers Date Payer Category Payer Unknown [employer] H[employer] [id number] 2018-Present [phone] [address] [place] [address] O [id number] 2018 Unknown [id number] Social History Date Type Detail Facility Start: 11-18-2021 Tobacco smoking stat [facility] Smokes tobacco daily [facility] History of tobacco use Cigarette Smoker [facility] Start: 11-18-2021 Cigarettes smoked current (pack per day) - Reported 1 [facility] Start: 11-18-2021 Tobacco use and exposure Smokeless tobacco non-user [facility] Start: 11-18-2021 Alcohol intake Current drinke r of alcohol (finding) [facility] Start: 1955 Sex Assigned At Not on file [facility] Start: 11-08-2021 End: 11-18-2021 Exposure to SARS-CoV-2 (event) Not sure [facility] Work Phone: Progress note 09-02-2022 Note Date & Type Note Facility 09-02-2022 Note HNO ID: [id number] Author: Rivka Allison APRN.HORTICULTURE SUPERINTENDENT Service: ? Author Type: Nurse Practitioner Type: [...] 10 mg by mouth once daily. Vit A,C,T-Vqos-Mgxdre (PRESERVISION AREDS) 14,320-226-200 nhog-tc-wxrh cap Take 1 capsule by mouth once [...] the right hand and wrist. Diffuse swelling. 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 [facility] Progress note 09-02-2022 Note Date & Type Note Facility 09-02-2022 Note HNO ID: [id number] Author: RT Amie(R) Service: Radiology Author Type: [...] RT Amie(R) September 02, 2022 10:14 AM [facility] Progress note 11-18-2021 Note Date & Type Note Facility 11-18-2021 Note HNO ID: [id number] Author: Kareem Gaviria APRN.HORTICULTURE SUPERINTENDENT Service: ? Author Type: Nurse Practitioner Type: [...] 10 mg by mouth once daily. Vit A,C,O-Qmvz-Gratjf (PRESERVISION AREDS) 14,320-226-200 hzyd-yi-gxlt cap Take 1 capsule by mouth once [...] SPRAY,SUSPENSION Agrees to plan Kareem Gaviria APRN.PARISH [facility] History of Present illness Narrative 11-18-2021 Kareem [...] 10 mg by mouth once daily. Vit A,C,K-Mgrg-Urpdfq (PRESERVISION AREDS) 14,320-226-200 iwpx-ma-gfqx cap Take 1 capsule by mouth once [...] NASAL SPRAY,SUSPENSION Agrees to plan Kareem Gaviria APRN.HORTICULTURE SUPERINTENDENT documented in this encounter [facility] Evaluation note Note Date & Type Note Facility documented in this encounter [facility] Summary Purpose Family History No Family [...] or prosecute any alcohol or drug abuse patient.[facility] Reason for Visit (unrecogniz ed section [...] BE BASED ON THE PRIMARY CLINICAL RECORDS. [employer] provides no warranty or guarantee of the accuracy or completeness of information in this document.
== END | disposition home or self-care (01) ==
LOC: MRI 16:18
PROVIDERS: PCP Family Medicine; Referring Provider Psychiatry & Neurology Neurology; Visit Provider Psychiatry & Neurology Neurology
DX: R42 Dizziness and giddiness (principal)
CPT/HCPCS: 70553; A9575

== ENCOUNTER → 2023-10-15 | Outpatient (CLI) | payer MEDICARE, SELFPAY ==
[2023-10-18 16:11] LABS: Albumin 3.7 g/dL (2.9-4.4); Alpha-1-Globulins 0.3 g/dL (0.0-0.4); Alpha-2-Globulins 0.7 g/dL (0.4-1.0); Gamma Globulin 1.1 g/dL (0.4-1.8); Immunoglobulin A 588 mg/dL (87-352); Immunoglobulin G 1119 mg/dL (586-1602); Immunoglobulin M 60 mg/dL (26-217)
== END | disposition home or self-care (01) ==
PROVIDERS: PCP Family Medicine; Referring Provider Psychiatry & Neurology Neurology; Visit Provider Psychiatry & Neurology Neurology
DX: G62.9 Polyneuropathy, unspecified (principal)
CPT/HCPCS: 36415; 82784; 84165; 86334; 86335

== ENCOUNTER → 2023-11-05 | Outpatient (CLI) | payer MEDICARE, SELFPAY ==
--- NOTE | 2023-11-05 09:48 | MRI_ITS ---
STUDY: MRI CERVICAL SPINE WITHOUT CONTRAST REASON FOR EXAM: Female, 68 years old. gait imbalance; neck pain TECHNIQUE: Standardized fat and water weighted pulse sequences were obtained in the sagittal and axial planes. COMPARISON: None FINDINGS: Normal foramen magnum and brainstem-cervical cord junction. Normal craniovertebral junction. Normal anterior atlantoaxial articulation. Normal odontoid process. Normal cervical lordosis. No marrow edema or fracture or compression deformity is present. C2-3: Normal endplates. Diffuse disc desiccation. Normal disc height and morphology. Normal central canal and intervertebral neural foramina. C3-4: Severe disc space narrowing with a diffuse disc osteophyte complex causing compression anterior aspect of the cord and znrv-gu-[id number] central canal stenosis. Severe bilateral foraminal stenosis with nerve root compression due to combined uncovertebral facet joint hypertrophy. C4-5: Diffuse disc desiccation with mild disc space narrowing and posterior annular bulging. Superimposed midline disc protrusion causing compression anterior aspect of the cord and contributing to moderate central canal stenosis. Normal intervertebral neural foramina. Mild to moderate left facet joint hypertrophy. C5-6: Diffuse disc desiccation with moderate disc space narrowing and mild diffuse disc bulging/disc spur complex causing compression anterior aspect of cord and moderate central canal stenosis. Moderate bilateral foraminal stenosis with nerve root compression due to uncovertebral facet joint hypertrophy. Normal central canal and intervertebral neural foramina. C6-7: Moderate disc space narrowing with diffuse disc desiccation and diffuse disc bulge/disc spur complex with compression anterior aspect of cord and moderate central canal stenosis. Moderate bilateral foraminal stenosis with nerve root compression due to uncovertebral hypertrophy. C7-T1: Normal endplates. Diffuse disc desiccation with mild disc space narrowing and slight posterior annular bulging contributing to mass effect on anterior aspect of cord and mild central canal stenosis mild left and moderate right foraminal stenosis with nerve root compression due to uncovertebral hypertrophy. Normal cervical cord. There is no demonstrated cervical cord syrinx cavity. Normal visualized soft tissue structures. MRI/Spine Cervical (Routine) IMPRESSION: 1. Multilevel degenerative changes, as described above. 2. Mild to moderate central canal stenosis at multiple levels 3. Multilevel foraminal stenosis with nerve root compression Electronically Signed: Waldo Weiss MD at 8:56 EDT ,
== END | disposition home or self-care (01) ==
LOC: MRI 16:02
PROVIDERS: PCP Family Medicine; Referring Provider Psychiatry & Neurology Neurology; Visit Provider Psychiatry & Neurology Neurology
DX: M54.2 Cervicalgia (principal); R26.81 Unsteadiness on feet
CPT/HCPCS: 72141

== ENCOUNTER → 2024-02-26 | Outpatient (CLI) | payer MEDICARE, SELFPAY ==
--- NOTE | 2024-02-26 15:58 | BI_ITS ---
MAMMOGRAPHY - BILATERAL SCREENING REASON FOR EXAM: Female, 68 years old. Routine annual screening examination. PERTINENT HISTORY: Sister with breast cancer. TECHNIQUE: Digital bilateral breast eduar (3D mammographic acquisition) in the CC and MLO projections. 2-D mediolateral oblique (MLO) and craniocaudad (CC) views of both breasts were obtained. CAD: Full Field Digital Mammography with Computer Added Detection was performed. COMPARISON: Comparison is made with prior study dated February 12, 2023 and February 10, 2022. FINDINGS: Breast Composition: There are scattered areas of fibroglandular density. There are no dominant masses or suspicious calcifications. Stable 3.5 mm well-defined nodule in the anterior upper outer aspect of the right breast No other significant abnormalities are identified. There has been no significant change since the prior study. BI/SCRN MAMM (CAD)W/EDUAR BILAT IMPRESSION: Stable bilateral screening mammogram. Yearly follow-up mammogram recommended. (A) ASSESSMENT CATEGORY: BIRADS Category 2: Benign. A letter regarding these results will be sent to the patient by the facility within 30 days. Approximately 10% of breast cancers are not detected by mammography. A normal mammogram should not delay biopsy of a clinically suspicious abnormality. [id number] Electronically Signed: Kev Menendez MD at 8:26 EST ,
--- NOTE | 2024-02-26 16:02 | BD_ITS ---
STUDY: DUAL ENERGY X-RAY ABSORPTIOMETRY / DXA REASON FOR EXAM: Female, 68 years old. [id number] TECHNIQUE: Bone Mineral Density (BMD) measurements of lumbar spine and bilateral hips were obtained. COMPARISON: Comparison is made with prior study February 09, 2021. FINDINGS: Lumbar Spine (L1-L4): g/cm2 (0.932) / T-score (-1.0) / Z-score (1.) Findings are suggestive of osteopenia with a low fracture risk. Left Femur Total: g/cm2 (0.749) / T-score (-1.6) / Z-score (0.0) Left Femoral Neck: g/cm2 (0.695) / T-score (-1.4) / Z-score (0.5) Right Femur Total: g/cm2 (0.703) / T-score (-2.0) / Z-score (-0.4) Right Femoral Neck: g/cm2 (0.672) / T-score (-1.6) / Z-score (0.2) The T-Scores on the most recent prior examination were: Lumbar Spine (L1-L4): There has been improvement of bone density since the previous examination. Left Femur Total: which represents a worsening of 3.5%. Right Femur Total: which represents a worsening of 5.5%. BD/Dexa Bone Density Study IMPRESSION: The patient is considered osteopenic as outlined below according to World Evans Organization (WHO) criteria with a moderate fracture risk. There has been worsening of bone density since the previous examination. Reference Information: The T-score is the number of standard deviations above or below the standard which is normal for young adults at their peak bone mineral density. The World Health Organization (WHO) interprets the T-scores as follows: Above -1 Normal bone density Between -1 and -2.5 Osteopenia Equal to / or below -2.5 Osteoporosis As a practical clinical guideline, osteopenia may be graded as follows: Mild -1 through -1.5 Moderate -1.6 through -2.0 Severe -2.1 through -2.4 The Z-score is the number of standard deviations above or below age-matched controls. A Z-score of less than -1.5 would be considered abnormal. References: 1. NIH Osteoporosis and Related Bone Diseases www osteo.org 2. International Society for Clinical Densitometry www iscd.org 3. National Osteoporosis Foundation www nof.org Electronically Signed: Kev Menendez MD at 15:01 EST ,
== END | disposition home or self-care (01) ==
PROVIDERS: PCP Family Medicine; Referring Provider Family Medicine; Visit Provider Family Medicine
DX: Z12.31 Encounter for screening mammogram for malignant neoplasm of breast (principal); Z80.3 Family history of malignant neoplasm of breast; N95.9 Unspecified menopausal and perimenopausal disorder
CPT/HCPCS: 77063; 77067; 77080

== ENCOUNTER → 2024-05-22 | Outpatient (CLI) | payer MEDICARE, SELFPAY ==
--- NOTE | 2024-05-22 13:00 | RAD_ITS ---
PROCEDURE: Radiographic bone survey, 21 views REASON FOR EXAM: 69 y/o F, monoclonal gammopathy of uncertain significance TECHNIQUE: Twenty-one radiographic views of the axial and appendicular skeletal structures were obtained. COMPARISON: None available FINDINGS: Bones are mildly osteopenic. A few tiny lucencies measuring up to 4 mm, which project over the frontal bones on the AP skull view. Slight fullness of the superior left hilum measuring up to 17 mm. Lungs are otherwise clear. Nonobstructive bowel gas. Degenerative changes in the spine. Moderate stool in the colon. Mild exaggeration of the normal thoracic kyphosis. A left shoulder and left knee arthroplasties are present. Multiple pelvic phleboliths. RAD/Bone Survey Comp(Axial&Append) IMPRESSION: A few tiny lucencies, much measure up to 4 mm, project over the frontal bones o n the AP skull view. These may represent tiny venous lakes. Otherwise, no other lucent lesions of the axial appendicular ske letal structures. There is 17 mm slight fullness of the left suprahilar region, which may be wesley factual on image 5. Suggest a short-term follow-up dedicated PA and lateral chest radiograph. Reading Location: [facility]
== END | disposition home or self-care (01) ==
LOC: RAD 12:56
PROVIDERS: PCP Family Medicine; Referring Provider Internal Medicine Hematology & Oncology; Visit Provider Internal Medicine Hematology & Oncology
DX: D47.2 Monoclonal gammopathy (principal)
CPT/HCPCS: 77075

== ENCOUNTER → 2024-06-03 | Outpatient (CLI) | payer MEDICARE, SELFPAY ==
--- NOTE | 2024-06-03 14:48 | RAD_ITS ---
PROCEDURE: CHEST PA AND LATERAL REASON FOR EXAM: Fullness in left suprahilar region on bone films. TECHNIQUE: Frontal and lateral views of the chest. COMPARISON: None. FINDINGS: Status post left shoulder hemiarthroplasty. The heart size is normal. The mediastinal contour is unremarkable. The lungs are clear. No pleural effusion or pneumothorax. Age-related bronchial wall calcifications noted. Multilevel degenerative changes in the thoracic spine. RAD/Chest PA and Lateral IMPRESSION: NO SIGNIFICANT ABNORMALITY IN THE CHEST. NORMAL CARDIOMEDIASTINAL CONTOUR. Reading Location: [id number]
== END | disposition home or self-care (01) ==
LOC: RAD 14:48
PROVIDERS: PCP Family Medicine; Referring Provider Internal Medicine Hematology & Oncology; Visit Provider Internal Medicine Hematology & Oncology
DX: D47.2 Monoclonal gammopathy (principal)
CPT/HCPCS: 71046

== ENCOUNTER → 2024-11-03 | Outpatient (CLI) | payer MEDICARE, SELFPAY ==
--- NOTE | 2024-11-03 12:04 | EKG12_ITS ---
Test Reason : PREOP Blood Pressure : */* mmHG Vent. Rate : 70 BPM Atrial Rate : 70 BPM P-R Int : 158 ms QRS Dur : 82 ms QT Int : 388 ms P-R-T Axes : 80 51 45 degrees QTcB Int : 419 ms Sinus rhythm with marked sinus arrhythmia Otherwise normal ECG Confirmed by STEVEN NORIEGA, MARCIE ([id number]), social media editor MONA GRAY ([id number]) on 11/03/2024 2:03:12 PM Referred By: Cecilio Perea Confirmed By: MARCIE HARRIS MD
--- OUTSIDE RECORDS SUMMARY | 2024-11-03 22:14 | XMS RPT_ITS | CCD ---
Author Organization [facility] Care Team Providers Care Associate Dean Name Role Phone Rafael Herrera MD Primary Care Provider [phone] Santos, Dr. Hall Primary Care Provider Santos, Dr. Hall Referring Provider Dr. Cecilio Perea Attending Provider Santos, Dr. Hall Primary Care Provider Santos, Dr. Hall Referring Provider Dr. Cecilio Perea Attending Provider Santos NORIEGA, Rafael Owens Primary Care Provider Santos NORIEGA, Dr. Hall Primary Care Provider Santos NORIEGA, Dr. Hall Attending Provider Santos NORIEGA, Dr. Hall Referring Provider Brit NORIEGA, Dr. Hernandes Attending Provider Valencia NORIEGA, Dr. Bernal Attending Provider Brit NORIEGA, Dr. Hernandes Referring Provider Valencia NORIEGA, Dr. Bernal Referring Provider RAFAEL HERRERA Primary Care Unavailable SANDRA ROJAS Referring Unavailable RAFAEL HERRERA Primary Care Unavailable RAFAEL HERRERA Primary Care Unavailable RAFAEL HERRERA Primary Care Unavailable Santos NORIEGA, Dr. Hall Primary Care Provider [phone] Santos NORIEGA, Dr. Hall Referring Provider Brit NORIEGA, Dr. Hernandes Attending Provider [phone] Rafael Herrera Referring Unavailable Rafael Herrera Primary Care Unavailable Baddour, Cecilio Attending Unavailable Herrera, Rafael Referring Unavailable Herrera, Rafael Primary Care Unavailable Baddour, Cecilio Attending Unavailable Herrera, Rafael Referring Unavailable Herrera, Rafael Primary Care Unavailable Isckarus, Mansour Attending Unavailable Isckarus, Mansour Attending Unavailable Herrera, Raafel Primary Care Unavailable Baddour, Cecilio Referring Unavailable Herrera, Rafael Primary Care Unavailable Baddour, Cecilio Attending Unavailable Baddour, Cecilio Referring Unavailable Isckarus, Mansour Referring Unavailable Isckarus, Mansour Attending Unavailable Herrera, Rafael Primary Care Unavailable Isckarus, Mansour Referring Unavailable Hererra, Rafael Primary Care Unavailable Isckarus, Mansour Attending Unavailable Isckarus, Mansour Referring Unavailable Herrera, Rafael Primary Care Unavailable Isckarus, Mansour Attending Unavailable Herrera, Rafael Primary Care Unavailable Baddour, Cecilio Attending Unavailable Baddour, Cecilio Referring Unavailable Herrera, Rafael Primary Care Unavailable Herrera, Rafael Attending Unavailable Herrera, Rafael Referring Unavailable Allergies Allergy Classification Reported Allergen(s) Allergy Type Date of Onset Reaction(s) Facility (15 sources) levoFLOXacin; Translations: [LEVOFLOXACIN] Drug Allergy 6 Other: See Comments [facility] (5 sources) formoterol Drug Allergy 4 [facility] (5 sources) Mometasone Drug Allergy 4 [facility] (1 source) formoterol Drug Allergy 5 [facility] (1 source) levoFLOXacin Drug Allergy 5 [facility] (1 source) Mometasone Drug Allergy 5 [facility] Medications Current Medications Medication Drug Class(es) Dates Sig (Normalized) Sig (Original) albuterol 0.83 mg/ml inhalation solution (15 sources) beta2-Adrenergic Agonist Start: 05-09-2020 albuterol (PROVENTIL) 2.5 mg /3 mL (0.083 %) nebulizer solution 05/09/2020 Active Start: 07-20-2013 Albuterol Sulf ate (Ventolin Hfa) 1 INHALER inhaler Active 1 - 2 NMA INHALATION EVERY 6 HOURS NEEDED as needed for Wheezing 1 July 20, 2013 12:00am Start: 07-20-2013 take 1 puff(s) by in halation every six hours as needed Albuterol Sulfate (Ventolin Hfa) 1 INHALER inhaler Active 1 - 2 PUFF INHALATION EVERY 6 HOURS NEEDED July 20, 2013 12:00am ascorbic acid 226 mg / beta carotene [id number] unt / cuprous oxide 0.8 mg / dl-alpha tocopheryl acetate 200 unt / zinc oxide 34.8 mg oral capsule (5 sources) Vitamin C take 1 capsule by mouth once daily Vit A,C,A-Ukhe-Nwzxsw (PRESERVISION AREDS) 14,320-226-200 smsl-vp-[id number] cap Take 1 capsule by mouth once daily. Active B-Complex With Vitamin C capsule (2 sources) Start: 5 B-Complex With Vitamin C capsule Active 1 NMA PO daily May 13, 2024 1:00am Budesonide-Formoter ol (8 sources) Corticosteroid, beta2-Adrenergic Agonist Start: 5 Budesonide-Formoterol (Symbicort) 160-4.5 mcg/actuation HFA aerosol inhaler Active 1 NMA INHALATION ONCE May 13, 2024 1:00am Start: 06-02-2020 take 2 puff(s) by in halation twice daily budesonide-formoterol (SYMBICORT) 160-4.5 mcg/actuation inhaler Inhale 2 Puffs as instructed twice daily. 06/02/2020 Active Start: 06-02-2020 take 2 puff(s) by in halation twice daily budesonide-formoterol (SYMBICORT) 160-4.5 mcg/actuation inhaler Inhale 2 Puffs as instructed twice daily. 0 06/02/2020 Active Comment on above: Inhale 2 Puffs as in structed twice daily. cetirizine hydrochloride 10 mg oral tablet (6 sources) Histamine-1 Receptor Antagonist Start: 0 take 1 tablet by mouth once daily cetirizine (ZYRTEC) 10 mg tablet Take 10 mg by mouth once daily. 04/03/2020 Active Comment on above: Take 10 mg by mouth once daily. cholecalciferol 1.25 mg oral capsule (14 sources) Vitamin D Start: 4 take 1 capsule by mouth every week cholecalciferol, Vitamin D3, (VITAMIN D3) 1,250 mcg (50,000 unit) cap capsule Take 1 capsule by mouth one time a week. 03/10/2024 Active Start: 10-15-2023 End: 10-20-2024 take 1 capsule by mouth every week Cholecalciferol (Vitamin D3) 1,250 mcg (50,000 unit) capsule Active 1250 ug PO EVERY WEEK 4 October 20, 2024 2:24pm Start: 05-31-2023 End: 10-15-2023 take 1 capsule by mouth once daily Cholecalciferol (Vitamin D3) 50 mcg (2,000 unit) capsule Discontinued 50 ug PO DAILY May 31, 2023 1:00am October 15, 2023 3:05pm doxycycline monohydrate 100 mg oral capsule (2 sources) Tetracycline-class Drug Start: 07-16-2024 End: 07-21-2024 take 1 capsule by mouth twice daily doxycycline monohydrate (MONODOX) 100 mg capsule Indications: COPD with exacerbation (HCC) Take 1 capsule by mouth two times a day for 5 days. 10 capsule 07/16/2024 07/21/2024 Active Start: 03-22-2024 End: 03-29-2024 take 1 tablet by mouth twice daily doxycycline (VIBRA-TABS) 100 mg tablet Indications: Respiratory infection Take 1 tablet by mouth two times a day for 7 days. 14 tablet 03/22/2024 03/29/2024 Active DULoxetine 30 mg delayed release oral capsule (2 sources) Serotonin and Norepinephrine Reuptake Inhibitor Start: 10-20-2024 take 1 capsule by mouth at bedtime Duloxetine 30 mg capsule,delayed release(DR/EC) Active 30 mg PO AT BEDTIME 7 0 October 20, 2024 12:00am Start: 10-20-2024 take 1 capsule by [facility] once daily at bedtime Duloxetine 60 mg capsule,delayed release(DR/EC) Active 60 mg PO AT BEDTIME 30 October 20, 2024 12:00am Begin after completing one week course of duloxetine 30mg nightly. fluticasone propionate 0.05 mg/actuat metered dose nasal spray (6 sources) Corticosteroid Start: 11-18-2021 take 2 spray(s) by mouth once daily fluticasone (FLONASE) 50 mcg/actuation nasal spray Indications: URI, acute , Acute effusion of right ear Use 2 Sprays in each nostril once daily. Rinse mouth after use. 1 Each 11/18/2021 Active Comment on above: Use 2 Sprays in each nostril once daily. Rinse mouth after use. meclizine hydrochloride 25 mg oral tablet (12 sources) Antiemetic Start: 10-15-2023 End: 10-20-2024 take 1 tablet by mouth twice daily as needed for dizziness Meclizine 25 mg tablet Active 25 mg PO TWICE A DAY as needed for dizziness 60 4 October 20, 2024 2:25pm Start: 05-31-2023 End: 10-15-2023 take 1 tablet by mouth three times daily as needed for dizziness Meclizine 25 mg tablet Discontinued 25 mg PO THREE TIMES A DAY as needed for dizziness 90 4 May 31, 2023 1:00am October 15, 2023 3:05pm omeprazole 20 mg delayed release oral capsule (6 sources) Proton Pump Inhibitor Start: 01-12-2009 omeprazole(PRILOSEC 20 MG CAP) Take one(1) capsule daily. 0 01/12/2009 Active Comment on above: Take one(1) capsule daily. oseltamivir 75 mg oral capsule (1 source) Neuraminidase Inhibitor Start: 04-27-2024 End: 05-02-2024 take 1 capsule by mouth twice daily oseltamivir (TAMIFLU) 75 mg capsule Take 1 capsule by mouth two times a day for 5 days. 10 capsule 04/27/2024 05/02/2024 Active predniSONE 20 mg oral tablet (20 sources) Start: 07-16-2024 End: 07-21-2024 take 1 tablet by mouth twice daily predniSONE (DELTASONE) 20 mg tablet Indications: COPD with exacerbation (HCC) Take 1 tablet by mouth two times a day for 5 days. 10 tablet 07/16/2024 07/21/2024 Active Start: 11-18-2021 End: 11-23-2021 take 2 tablets by mouth once daily predniSONE (DELTASONE) 20 mg tablet Indications: History of COPD , Acute effusion of right ear Take 2 tablets by mouth once daily for 5 days. 10 tablet 0 11/18/2021 11/23/2021 Active Start: 07-08-2015 End: 05-31-2023 take 4 tablets by mouth once daily, then take 3 tablets by mouth once daily, then take 2 tablets by mouth once daily, then take 1 tablet by mouth once daily, then take 1 tablet by mouth every other day Prednisone 10 MG tablet Discontinued 10 mg PO DIRECTED 33 0 July 08, 2015 12:00am May 31, 2023 10:03am Take 4 tablets daily for 3 days, then 3 daily for 3 days, then 2 daily for 3 days, then 1 a day for 3 days then 1 QOD for 3 doses. Start: 07-20-2013 End: 08-27-2014 take 3 tablets by mouth once daily Prednisone 20 MG tablet Discontinued 60 mg PO DAILY@0800 14 0 July 20, 2013 12:00am August 27, 2014 12:53pm Start: 07-20-2013 End: 08-27-2014 take 60 mg by mouth once daily Prednisone Discontinued 60 MG PO DAILY@0800 14 July 20, 2013 12:00am August 27, 2014 12:53pm Comment on above: Take 2 tablets by mo ut once daily for 5 days. Completed/Discontinued Medications Medication Drug Class(es) Dates Sig (Normalized) Sig (Original) 120 actuat albuterol 0.1 mg/actuat / ipratropium bromide 0.02 mg/actuat inhalation spray (18 sources) Anticholinergic, beta2-Adrenergic Agonist Start: 07-08-2015 End: 05-13-2024 Ipratropium-Albuter ol (Combivent Respimat Inhal Mcfarlan) 1 PUFF inhaler Discontinued July 08, 2015 12:00am May 13, 2024 12:30pm Start: 07-20-2013 take 4 g by inhalati on four times daily Ipratropium/Albuterol Sulfate (Combivent Respimat Inhal Mcfarlan) 4 GM Aer.W.Adap Active 4 g IH 4 TIMES DAILY July 20, 2013 12:00am Amoxicillin / Clavulanate (9 sources) Penicillin-class Antibacterial Start: 07-08-2015 End: 05-31-2023 Augmentin Tablet Discontinued July 08, 2015 12:00am May 31, 2023 10:02am Start: 07-08-2015 End: 05-31-2023 Augmentin Tablet Discontinue d July 07, 2015 11:00pm May 31, 2023 9:02am Start: 07-08-2015 Augmentin Tabl et Active July 07, 2015 11:00pm Start: 07-08-2015 Augmentin Tabl et Active July 08, 2015 12:00am 24 hr clarithromycin 500 mg extended release oral tablet (9 sources) Macrolide Antimicrobial Start: 08-17-2014 End: 08-27-2014 take 1 tablet by mouth once daily Clarithromycin (Biaxin Xl) 500 MG Tab.Er.24h Discontinued 1000 mg PO DAILY August 17, 2014 12:00am August 27, 2014 12:53pm flurbiprofen 100 mg oral tablet (5 sources) Nonsteroidal Anti-inflammatory Drug Start: 05-31-2023 End: 10-15-2023 take 1 tablet by mouth three times daily as needed for pain Flurbiprofen 100 mg tablet Discontinued 100 mg PO THREE TIMES A DAY as needed for pain 90 4 May 31, 2023 1:00am October 15, 2023 3:05pm ibuprofen 400 mg oral tablet (9 sources) Nonsteroidal Anti-inflammatory Drug Start: 08-17-2014 End: 08-27-2014 take 1 tablet by mouth every six hours as needed for pain Ibuprofen 400 MG tablet Discontinued 400 mg PO EVERY 6 HOURS NEEDED as needed for Pain August 17, 2014 12:00am August 27, 2014 12:53pm meloxicam 7.5 mg oral tablet (9 sources) Nonsteroidal Anti-inflammatory Drug Start: 08-17-2014 End: 08-27-2014 take 1 tablet by mouth once daily Meloxicam 7.5 MG tablet Discontinued 7.5 mg PO DAILY August 17, 2014 12:00am August 27, 2014 12:53pm Vit A,C,E-Gepk-Ensumj (PRESERVISION AREDS) 14,320-226-200 lhpk-vu-rfpy cap (1 source) take 1 capsule by mouth once daily Vit A,C,O-Srgr-Zyvwok (PRESERVISION AREDS) 14,320-226-200 qwkn-pq-sphi cap Take 1 capsule by mouth once daily. 0 Active Comment on above: Take 1 capsule by mo uth once daily. Problems Active Problems Problem Classification Problem Date Documented Date Episodic/Chronic Cardiac dysrhythmias (4 sources) Cardiac arrhythmia; Translations: [Cardiac arrhythmia, unspecified] Onset: 10-20-2024 10-20-2024 Chronic Chronic obstructive pulmonary disease and bronchiectasis (20 sources) Acute exacerbation of chronic bronchitis; Translations: [Chronic obstructive pulmonary disease with (acute) exacerbation] 07-21-2013 Chronic Conditions associated with dizziness or vertigo (5 sources) Dizziness and giddiness; Translations: [Dizziness and giddiness] 05-31-2023 Episodic Immunizations and screening for infectious disease (1 source) Contact with and (suspected) exposure to other viral communicable diseases; Translations: [Contact with or exposure to other viral diseases] 04-27-2024 Episodic Malaise and fatigue (2 sources) Fatigue; Translations: [Other fatigue] 04-21-2024 Episodic Neoplasms of unspecified nature or uncertain behavior (6 sources) Monoclonal gammopathy (clinical); Translations: [Monoclonal gammopathy] Onset: 06-03-2024 05-13-2024 Chronic Osteoarthritis (9 sources) Osteoarthritis; Translations: [Unspecified osteoarthritis, unspecified site] 07-09-2015 Chronic Other connective tissue disease (9 sources) History of total knee arthroplasty; Translations: [Presence of left artificial knee joint] 07-09-2015 Chronic Other lower respiratory disease (1 source) History of chronic obstructive airway disease; Translations: [Personal history of other diseases of the respiratory system] Episodic Other lower respiratory disease (3 sources) Cough; Translations: [Acute cough] 03-22-2024 Episodic Other lower respiratory disease (1 source) Respiratory tract infection; Translations: [Other specified respiratory disorders] 03-22-2024 Episodic Other nervous system disorders (7 sources) Polyneuropathy; Translations: [Polyneuropathy, unspecified] 05-31-2023 Chronic Other nervous system disorders (3 sources) Polyneuropathy, unspecified; Translations: [Unspecified hereditary and idiopathic peripheral neuropathy] 05-31-2023 Chronic Other nervous system disorders (4 sources) Abnormal gait; Translations: [Unspecified abnormalities of gait and mobility] 10-15-2023 Episodic Other non-traumatic joint disorders (1 source) Swelling of hand; Translations: [Effusion, right hand] 09-02-2022 Episodic Other non-traumatic joint disorders (1 source) Swelling of joint of right wrist; Translations: [Effusion, right wrist] 09-02-2022 Episodic Other nutritional; endocrine; and metabolic disorders (7 sources) History of nutritional deficiency; Translations: [Personal history of other endocrine, nutritional and metabolic disease] 05-31-2023 Episodic Other nutritional; endocrine; and metabolic disorders (3 sources) Personal history of other endocrine, nutritional and metabolic disease; Translations: [Personal history of nutritional deficiency] 05-31-2023 Episodic Other upper respiratory infections (1 source) Acute upper respiratory infection; Translations: [Acute upper respiratory infection, unspecified] Episodic Otitis media and related conditions (1 source) Acute transudative otitis media; Translations: [Other acute nonsuppurative otitis media, right ear] Episodic Unclassified (1 source) Acute cough; Translations: [Acute cough] Onset: 03-22-2024 Past or Other Problems Problem Classification Problem Date Documented Da te Episodic/Chronic Biliary tract disease (6 sources) Acute cholecystitis; Translations: [Acute cholecystitis] Onset: 01-04-2009 01-04-2009 Episodic Other screening for suspected conditions (not mental disorders or infectious disease) (1 source) Encounter for screening mammogram for malignant neoplasm of breast; Translations: [Encounter for screening mammogram for malignant neoplasm of breast] Onset: 03-27-2024 Episodic Spondylosis; intervertebral disc disorders; other back problems (11 sources) Neck pain; Translations: [Cervicalgia] Onset: 11-27-2023 05-31-2023 Episodic Results Test Name Value Interpretation Reference Range Facility Neurology Visit Reporton Neurology Visit Report [facility] [address] [facility], [address] [place] [address] OFFICE VISIT Date of Service: 10/20/24 MR#: [id number] Acct: [id number] Name: GLENYS LOERA Rep #: [id number] : 1955 Provider: Dr. Cecilio love MD Age/Sex: 69/F Location: [facility] Status: Signed with Addenda ADDENDUM by Dr. Cecilio Perea MD on 10/27/24 at 1613 Addendum Addendum (10/27/2024): The patient experienced a racing heart after taking a single dose of duloxetine 30 mg and she discontinued this medication. Duloxetine will not be resumed at this time. She is to have an EKG. 10/27/24 1613 Date Cecilio Perea MD cc: * Signed HPI HPI Chief Complaint: Est Care Details: Interim History: Glenys returns for follow-up visit. She has a history of COPD, left total knee replacement, left shoulder surgery, vitamin D deficiency and bilateral eye macular degeneration. She is accompanied by her daughter. She began to experience dizziness in 2019. The dizziness was of acute onset and began while seated. She described the dizziness as disequilibrium. The disequilibrium does not fluctuate with movement and has been continuous since the time of onset. Within recent months, the severity of dizziness has diminished with the use of meclizine 25 mg twice daily as needed (25 mg 3 times daily was sedating) though it remains continuous. She denied having lightheadedness or vertigo however an MRI report from 2019 reported that the patient had vertigo as well as right ear pain at that time. She has had occasional right ear tinnitus. She denied having hearing loss. She denied having weakness. She has severe bilateral eye visual impairment due to macular degeneration. She has chronic neck pain and, at times, experiences right occipital head pain associated with her neck pain. Her neck pain is not continuous. She had a fall in the and sustained a left shoulder region fracture for which she had surgery. Her gait has slowed. She experiences bilateral lower extremity numbness and tingling in the feet. She had previously had sinus symptoms manifesting with rhinorrhea and sneezing; cetirizine was of benefit; she no longer uses cetirizine. She had previously seen an ENT specialist regarding her dizziness and no ENT pathology to account for her symptoms was identified. She had a physical therapy evaluation for her disequilibrium and no abnormalities were noted and therapy was not pursued. She had a head MRI in 2019 that revealed a mild subcortical chronic small vessel ischemic disease and mild age-related cerebral atrophy. She has had cervical dyskinesias since around 2021. She has fatigue. Her laboratory studies in 2022 revealed vitamin D deficiency, a B12 level near the low end of the normal range and an abnormal serum free light chains. 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 She is seeing a gas worker, Dr. [place], regarding her monoclonal gammopathy. She takes vitamin D supplementation.. She has chronic renal insufficiency. Flurbiprofen was of some benefit for her musculoskeletal pain however the medication was discontinued due to her renal insufficiency. She takes acetaminophen and this is of some benefit for her musculoskeletal pain. She uses diclofenac gel for her musculoskeletal pain and this is of benefit. Physical Exam: Neuro: The patient is awake and alert and responds appropriately; speech is fluent; motor strength is 5/5 in the foot dorsiflexors bilaterally Neck: No bruits Heart: Irregularly irregular Supplemental Info Head MRI with attention to the IACs with and without contrast (05/07/2019): FINDINGS: No intracranial mass, mass effect, or midline shift. No enhancing lesion following the administration of contrast. No territorial infarct or acute ischemia. Normal internal auditory canals bilaterally. 7th and 8th cranial nerves are unremarkable. No abnormal enhancement. Normal size of the ventricles and extra-axial spaces for the patient''s age. There are a limited number of small white matter hyperintensities, distributed throughout the deep white matter tracts of the cerebral hemispheres, consistent with mild chronic white matter ischemic changes. There is no extra-axial fluid accumulation. Normal flow voids within the major intracranial circulation suggesting patency by spin echo criteria. There is no enhancing intra-axial or extra-axial abnormality. Normal sella turcica, pituitary gland, infundibular stalk, optic chiasm and hypothalamus. Normal midbrain, kellen and medulla. Normal cerebellum. Normal basal cisterns. Normal bilateral temporal bones. No demonstrated orbital abnormality, within the constraints of a routine brain study. Normal visualized paranasal sinuses. Normal calvarium and skull base. (more content not included)... Normal [facility] CNOVon 07-16-2024 CNOV Office Visit (UCWSTR ) GLENYS LOERA ([id number]) 1955 F [facility] Date Time Provider Department 07/16/24 6:15 PM [facility] During your visit today, we recorded the following information about you: Temperature Pulse Respiration Blood pressure 97.5 degrees 79/minute 18/minute 132/82 Weight 79.6 kg Valente Ellsworth MD 07/16/2024 6:24 PM Signed [facility] Subjective Glenys Leora is a 69 year old female. Patient presents with: Wheezing: Wheezing and SOB x 2 days Patient feels exacerbation of her COPD the last few days. She notices wheezing and chest tightness. She has a cough mostly at night. Her oxygen saturation drops to 89% during the night. She has production with the cough largely after using an albuterol treatment. Denies fever, nasal congestion, rhinorrhea, sore throat. Denies any past history of seasonal allergies triggering COPD. Recent history significant for bronchitis versus pneumonia in March and influenza A in April. Wheezing Review of Systems Respiratory: Positive for wheezing. Objective BP 132/82 Pulse 79 Temp 36.4 ?C (97.5 ?F) (Tympanic) Resp 18 Wt 79.6 kg (175 lb 7.8 oz) SpO2 96% Physical Exam Constitutional: General: She is not in acute distress. HENT: Right Ear: Tympanic membrane and ear canal normal. Left Ear: Tympanic membrane and ear canal normal. Nose: No congestion. Right Sinus: No maxillary sinus tenderness or frontal sinus tenderness. Left Sinus: No maxillary sinus tenderness or frontal sinus tenderness. Mouth/Throat: Mouth: Mucous membranes are moist. Pharynx: No oropharyngeal exudate or posterior oropharyngeal erythema. Eyes: Extraocular Movements: Extraocular movements intact. Conjunctiva/sclera: Conjunctivae normal. Pupils: Pupils are equal, round, and reactive to light. Cardiovascular: Rate and Rhythm: Normal rate and regular rhythm. Heart sounds: No murmur heard. Pulmonary: Effort: No respiratory distress. Breath sounds: Wheezing (Mild inspiratory wheeze left midlung) present. No rhonchi or rales. Musculoskeletal: Cervical back: Neck supple. Lymphadenopathy: Cervical: No cervical adenopathy. Neurological: Mental Status: She is alert. {ASSESSMENT/PLAN: 1. COPD with exacerbation (HCC) - ICD9: 491.21, ICD10: J44.1 - PREDNISONE 20 MG TABLET - reports jitteriness when initiating steroid therapy but is otherwise tolerated. - DOXYCYCLINE MONOHYDRATE 100 MG CAPSULE Follow up with worsening cough, worsening shortness of breath, increasing chest pain, or late onset fever. Valente Ellsworth MD Differential Diagnoses - COPD exacerbation is more likely for the following reason(s): suggested by HANDP - Pneumonia is less likely for the following reason(s): HANDP not suggestive - Congestive heart failure is less likely for the following reason(s): HANDP not suggestive Procedures Allergies As of Date: 07/16/2024 Noted Allergy Reaction LEVOFLOXACIN 07/08/2015 14 - Other: See Comments Comments: Upsets stomach Date Reviewed: 07/16/2024 Reviewed by: Brandy Bailey LPN - Fully Assessed Reason for Visit: Wheezing [181] Cmt: Wheezing and SOB x 2 days Primary Visit Diagnosis:COPD with exacerbation (HCC) [J44.1] Order(s):predniSONE (DELTASONE) 20 mg tabletTake 1 tablet by mouth two times a day for 5 days.Disp: 10 tabletRfl: 0 doxycycline monohydrate (MONODOX) 100 mg capsuleTake 1 capsule by mouth two times a day for 5 days.Disp: 10 capsuleRfl: 0 Prescriptions as of 07/16/2024 - predniSONE (DELTASONE) 20 mg tablet Take 1 tablet by mouth two times a day for 5 days. - doxycycline monohydrate (MONODOX) 100 mg capsule Take 1 capsule by mouth two times a day for 5 days. - meclizine (ANTIVERT) 25 mg tab Take 25 mg by mouth two times a day as needed (dizziness). - cholecalciferol, Vitamin D3, (VITAMIN D3) 1,250 mcg (50,000 unit) cap capsule Take 1 capsule by mouth one time a week. - fluticasone (FLONASE) 50 mcg/actuation nasal spray Use 2 Sprays in each nostril once daily. Rinse mouth after use. - albuterol (PROVENTIL) 2.5 mg /3 mL (0.083 %) nebulizer solution - budesonide-formoterol (SYMBICORT) 160-4.5 mcg/actuation inhaler Inhale 2 Puffs as instructed twice daily. - cetirizine (ZYRTEC) 10 mg tablet Take 10 mg by mouth once daily. - Vit A,C,L-Yvag-Xyjzdl (PRESERVISION AREDS) 14,320-226-200 mdsl-yt-sjid cap Take 1 capsule by mouth once daily. - omeprazole(PRILOSEC 20 MG CAP) Take one(1) capsule daily. Problem List As Of Date 07/16/2024 Noted Resolved Acute Cholecystitis [K81.0] 01/04/2009 Prescriptions ordered this encounter Disp Refills Start End PREDNISONE 20 MG TABLET 10 t* 0 07/16/2024 07/21/2024 Route: ORAL Sig: Take 1 tablet by mouth two times a day for 5 days. DOXYCYCLINE MONOHYDRATE 100 MG CAPSU* 10 c* 0 07/16/2024 07/21/2024 Route: ORAL Sig: Take 1 capsule by (more content not included)... Normal [facility] Chest PA and Lateralon 06-03 Chest PA and Lateral [facility] Imaging Services [address] [place] [address] Chest PA and Lateral MR#: [id number] Acct: [id number] Name: GLENYS LOERA Rufino Rep #: [id number] : 1955 F 69 From: Jodie Frankel MD PCP: Dr. Rafael Herrera MD Status: REG CLI Study: Chest PA and Lateral Date of Exam: 06/03/24 Exam# [id number] Ordering Dr: Gabe Birmingham MD PROCEDURE: CHEST PA AND LATERAL REASON FOR EXAM: Fullness in left suprahilar region on bone films. TECHNIQUE: Frontal and lateral views of the chest. COMPARISON: None. FINDINGS: Status post left shoulder hemiarthroplasty. The heart size is normal. The mediastinal contour is unremarkable. The lungs are clear. No pleural effusion or pneumothorax. Age-related bronchial wall calcifications noted. Multilevel degenerative changes in the thoracic spine. RAD/Chest PA and Lateral IMPRESSION: NO SIGNIFICANT ABNORMALITY IN THE CHEST. NORMAL CARDIOMEDIASTINAL CONTOUR. Reading Location: [id number] CC: Dr. Gabe Birmingham MD; Dr. 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: Signed Normal [facility] Oncology Visit Reporton 05-11 Oncology Visit Report [facility] [address] [place] [address] OFFICE VISIT Date of Service: 06/03/24 1358 MR#: [id number] Acct: [id number] Name: GLENYS LOERA Rep #: [id number] : 1955 From: Gabe Birmingham MD Age/Sex: 69/F Location: [facility] [place] Status: Signed HPI Subjective Date of Service 06/03/24 Chief Complaint MGUS History of Present Illness 69-year-old female medical history notable for COPD, ex-smoker quit over 10 years chronic renal failure (over 10 years), polyneuropathy, degenerative joint disease and she is legally blind from macular degeneration. Patient was noted on blood testing to have a monoclonal IgA kappa. PFSH Surgical History Hx of endoscopy Hx of shoulder surgery Hx of cholecystectomy History of left knee replacement Family History Mother Diabetes Heart disease Father Hypertension Brother Cancer Sister Breast cancer Social History Smoking Status: Former smoker Tobacco: How many years used: 20 alcohol intake: never substance use type: does not use ROS ROS Narrative See May 13, 2024 Intake Vital Signs 05/13/24 11:35 06/03/24 13:59 06/03/24 14:02 Height 5 ft 5 in 5 ft 5 in 5 ft 5 in Weight: 79.379 kg 79.832 kg BMI 29.1 29.2 BP 118/77 140/73 H Blood Pressure Location Lt brachial Lt brachial Position Sitting Sitting Respiration 16 18 Pulse 79 86 Pulse Source Monitor Monitor Temp 96.7 F L 97.8 F Temperature Source Temporal Artery Temporal Artery Pulse Oximetry (%) 95 97 Oxygen Delivery Method room air room air Intake Is patient in pain?: No Allergies formoterol (From Dulera) Adverse Reaction (Severe, Verified 06/03/24 14:02) Rash mometasone furoate (From Dulera) Adverse Reaction (Severe, Verified 06/03/24 14:02) Rash levofloxacin (From Levaquin) Adverse Reaction (Verified 06/03/24 14:02) Pain in joints Medications ???Medication ???Instructions ???Recorded ???Confirmed ???Type Ipratropium/Albuterol Sulfate 4 g IH 4X/DAY 07/20/13 06/03/24 Hi story [Combivent Respimat Inhal Mcfarlan] albuterol sulfate 90 mcg/actuation 1 - 2 puff inhalation Q6H PRN NJ N 07/20/13 06/03/24 Rx aerosol inhaler (Ventolin HFA) Wheezing ##1 cholecalciferol (vitamin D3) 1,250 1,250 mcg PO QWEEK #4 caps 04/2106/03/24 Rx mcg (50,000 unit) capsule meclizine 25 mg tablet 25 mg PO BID PRN dizziness #90 tab s 04/21/24 06/03/24 Rx B-complex with vitamin C 1 cap PO QDAY 05/13/24 06/03/24 Hi story budesonide-formoterol HFA 160 1 inh inhalation ONCE 05/13/24 History mcg-4.5 mcg/actuation aerosol inhaler (Symbicort) Have you fallen in the past year?: No Central Venous Access Central Venous Access: No Laboratory Tests 06/04/23 10/15/23 05/13/24 11:13 15:35 12:55 KARISSA M-Uziel 0.3 H too small to quantify Free Nubieber LC, Quant 91.0 H 76.1 H Free Lambda LC, Quant 78.1 H 66.1 H Free Nubieber/Lambda Ratio 1.17 1.15 Exam Physical Exam Narrative See May 13, 2024 Coding Level of Care Code Off vis,est,level 3 Exam Problem Focused Diagnoses Monoclonal gammopathy D47.2 Assessment and Plan Assessment and Plan (1) Monoclonal gammopathy: Status: Chronic Plan 69-year-old female with persistent low-level IgA kappa monoclonal gammopathy first noted October 2023. And elevation of both kappa and lambda light chains with preserved ratio is consistent with a reactive (nonclonal, nonmalignant/premalig nant). Monoclonal gammopathy of undetermined significance (MGUS) is an asymptomatic premalignant clonal plasma cell or lymphoplasmacytic proliferative disorder . MGUS occurs in over 3 percent of the general population over the age of 50 and is typically detected as an incidental finding when patients undergo a protein electrophoresis as part of an evaluation for a wide variety of clinical symptoms and disorders. Non-IgM MGUS (IgG, IgA, or IgD MGUS) is the most common type of MGUS and has the potential to progress to smoldering (asymptomatic) multiple myeloma and to symptomatic multiple myeloma. Less frequently, these patients progress to AL amyloidosis, light chain deposition disease, or another lymphoproliferative disorder. Skeletal survey May 2024 showed no lytic lesions to suggest myeloma. An indeterminate fullness in the left suprahilar region need further imaging with chest x-ray. Chronic comorbid conditions: COPD, ex-smoker quit over 10 years, polyneuropathy, chronic renal failure, degenerative joint disease, legally blind. Plan: 1. Watchful every 6 months for MGUS 2. Chest x-ray PA and lateral, if there is concerning abnorm (more content not included)... Normal [facility] Bone Survey Comp(Axial Appen d)on 05-22-2024 Bone Survey Comp(Axial Append) [facility] Imaging Services [address] [place] [address] Bone Survey Comp(Axial Append) MR#: [id number] Acct: [id number] Name: GLENYS LOERA Rep #: [id number] : 1955 F 69 From: Toney Morales i DO PCP: Dr. Rafael Herrera MD Status: REG CLI Study: Bone Survey Comp(Axial Append) Date of Exam: 0 05/22/24 Exam# [id number] Ordering Dr: Gabe Birmingham MD PROCEDURE: Radiographic bone survey, 21 views REASON FOR EXAM: 69 y/o F, monoclonal gammopathy of uncertain significance TECHNIQUE: Twenty-one radiographic views of the axial and appendicular skeletal structures were obtained. COMPARISON: None available FINDINGS: Bones are mildly osteopenic. A few tiny lucencies measuring up to 4 mm, which project over the frontal bones on the AP skull view. Slight fullness of the superior left hilum measuring up to 17 mm. Lungs are otherwise clear. Nonobstructive bowel gas. Degenerative changes in the spine. Moderate stool in the colon. Mild exaggeration of the normal thoracic kyphosis. A left shoulder and left knee arthroplasties are present. Multiple pelvic phleboliths. RAD/Bone Survey Comp(Axial Append) IMPRESSION: A few tiny lucencies, much measure up to 4 mm, project over the frontal bones on the AP skull view. These may represent tiny venous lakes. Otherwise, no other lucent lesions of the axial appendicular skeletal structures. There is 17 mm slight fullness of the left suprahilar region, which may be artifactual on image 5. Suggest a short-term follow-up dedicated PA and lateral chest radiograph. Reading Location: [facility] CC: Dr. Gabe Birmingham MD; Dr. 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, [address] Albumin/Globulin [Mass ratio] 1.0 {ratio} Normal 0.7-1.7 [facility] Comment on above: Order Comment: N Performed By: #### L 504.2610, L500.4050, L3130.0010, L100.0100, L3100.3425 ####[facility] [address] [place], [address] AMXKA-9-IVJW 0.3 g/dL Normal 0.0-0.4 [facility] Comment on above: Order Comment: N Performed By: #### L 504.2610, L500.4050, L3130.0010, L100.0100, L3100.3425 ####[facility] [address] [place], [address] MFFBF-0-EUTF 0.8 g/dL Normal 0.4-1.0 [facility] Comment on above: Order Comment: N Performed By: #### L 504.2610, L500.4050, L3130.0010, L100.0100, L3100.3425 ####[facility] [address] [place], [address] BETA GLOBULIN 1.3 g/dL Normal 0.7-1.3 [facility] Comment on above: Order Comment: N Performed By: #### L 504.2610, L500.4050, L3130.0010, L100.0100, L3100.3425 ####[facility] [address] [place], [address] GAMMA GLOBULIN 1.2 g/dL Normal 0.4-1.8 [facility] Comment on above: Order Comment: N Performed By: #### L 504.2610, L500.4050, L3130.0010, L100.0100, L3100.3425 ####[facility] [address] [place], [address] Globulin (S) [Mass/Vol] 3.6 g/dL Normal 2.2-3.9 [facility] Comment on above: Order Comment: N Performed By: #### L 504.2610, L500.4050, L3130.0010, L100.0100, L3100.3425 ####[facility] [address] [place], [address] KARISSA RESULT,S Comment Abnormal . [facility] Comment on above: Order Comment: N Result Comment: Immu nofixation shows IgA monoclonal protein with kappa light chain specificity. Performed By: #### L 504.2610, L500.4050, L3130.0010, L100.0100, L3100.3425 ####[facility] [address] [place], [address] IMMUNOGLOB A QN 607 mg/dL High 64-422 [facility] Comment on above: Order Comment: N Performed By: #### L 504.2610, L500.4050, L3130.0010, L100.0100, L3100.3425 ####[facility] [address] [place], [address] IMMUNOGLOB G QN 1337 mg/dL Normal 586-1602 [facility] Comment on above: Order Comment: N Performed By: #### L 504.2610, L500.4050, L3130.0010, L100.0100, L3100.3425 ####[facility] [address] [place], [address] IMMUNOGLOB M QN 67 mg/dL Normal 26-217 [facility] Comment on above: Order Comment: N Performed By: #### L 504.2610, L500.4050, L3130.0010, L100.0100, L3100.3425 ####[facility] [address] [place], [address] M-Uziel Comment: Normal Not Observed [facility] Comment on above: Order Comment: N Result Comment: Due to the small quantity of monoclonal protein, unable to quantitate the M-spike. Performed By: #### L 504.2610, L500.4050, L3130.0010, L100.0100, L3100.3425 ####[facility] [address] [place], [address] NOTE: Comment Normal . [facility] Comment on above: Order Comment: N Result Comment: Prot ein electrophoresis scan will follow via computer, mail, or pump installer delivery. Performed By: #### L 504.2610, L500.4050, L3130.0010, L100.0100, L3100.3425 ####[facility] [address] [place], [address] Protein [Mass/Vol] 6.9 g/dL Normal 6.0-8.5 [facility] Comment on above: Order Comment: N Performed By: #### L 504.2610, L500.4050, L3130.0010, L100.0100, L3100.3425 ####[facility] [address] [place], [address] Nubieber Lambda Light Chainson 05-16-2024 FR KAPPA LT CHN 76.1 mg/L Abnormal 3.3-19.4 [facility] Comment on above: Performed By: #### L 504.2610, L500.4050, L3130.0010, L100.0100, L3100.3425 ####[facility] [address] [place], [place], [id number] FR LAMBDA LT CH 66.1 mg/L Abnormal 5.7-26.3 [facility] Comment on above: Performed By: #### L 504.2610, L500.4050, L3130.0010, L100.0100, L3100.3425 ####[facility] [address] [place], [place], [id number] KAPPA/LAMBDA % 1.15 Normal 0.26-1.65 [facility] Comment on above: Result Comment: Perf ormed at: - [facility] [id number] Chain Saw Mechanic: Jacob Valera PhD, Phone: [phone] Performed By: #### L 504.2610, L500.4050, L3130.0010, L100.0100, L3100.3425 ####[facility] [address] [place], [place], [id number] Absolute neutrophil countOrd ered By: Gabe Birmingham on 05-13-2024 Neutrophils (Bld) [#/Vol] 6.9 10*3/uL 2.0-7.7 [facility] Addendum DocumentOrdered By: Gabe Birmingham on 05-13-2024 Serum Immunofixation Comments Comment . [facility] Comment on above: Protein electrophore sis scan will follow via computer,mail, or pump installer delivery. Albumin Elph [Mass/Vol]Order ed By: Gabe Birmingham on 05-13-2024 Albumin [Mass/Vol] 3.3 g/dL 2.9-4.4 [facility] Albumin to globulin ratioOrd ered By: Gabe Birmingham on 05-13-2024 Albumin/Globulin [Mass ratio] 0.9 {ratio} 0.9-2.4 [facility] Alpha 1 globulin Elph [Mass/ Vol]Ordered By: Gabe Birmingham on 05-13-2024 Onnqh-3-Pfeuvguqh (KARISSA) 0.3 g/dL 0.0-0.4 [facility] Ylfxw-3-Fuystkcqy (KARISSA) 0.8 g/dL 0.4-1.0 [facility] Basophil percentageOrdered B y: Gabe Birmingham on 05-13-2024 Basophils/100 WBC (Bld) 0.6 % 0-1 [facility] Beta globulin Elph [Mass/Vol ]Ordered By: Gabe Birmingham on 05-13-2024 Beta-Globulins (KARISSA) 1.3 g/dL 0.7-1.3 [facility] Bilirubin, totalOrdered By: [facility] on 05-13-2024 Bilirubin [Mass/Vol] 0.50 mg/dL 0.20-1.00 [facility] Comment on above: For patients on eltr ombopag therapy, use of Dimension [place] TBIL is not recommended. Blood urea nitrogen (BUN)/cr eatinine ratioOrdered By: [facility] Birmingham on 05-13-2024 Urea nitrogen/Creatinine [Mass ratio] 14.0 mg/mg 10-20 [facility] CBC W/Diff, Automatedon Absolute Lymph 1.65 X10 3/uL Normal 0.83-4.51 [facility] Comment on above: Performed By: #### L 504.2610, L500.4050, L3130.0010, L100.0100, L3100.3425 #### [facility] Laboratory [address] [place], [address] Absolute Neut 6.9 X10 3/uL Normal 2.0-7.7 [facility] Comment on above: Performed By: #### L 504.2610, L500.4050, L3130.0010, L100.0100, L3100.3425 #### [facility] [address] [place], [address] Basophils/100 WBC (Bld) 0.6 % Normal 0-1 [facility] Comment on above: Performed By: #### L 504.2610, L500.4050, L3130.0010, L100.0100, L3100.3425 #### [facility] [address] [place], [address] Eosinophils/100 WBC (Bld) 1.9 % Normal 0-5 [facility] Comment on above: Performed By: #### L 504.2610, L500.4050, L3130.0010, L100.0100, L3100.3425 #### [facility] [address] [place], [address] Erythrocyte distribution width (RBC) [Ratio] 13.7 % Normal 11.6-14.6 [facility] Comment on above: Performed By: #### L 504.2610, L500.4050, L3130.0010, L100.0100, L3100.3425 #### [facility] [address] [place], [address] Hematocrit (Bld) [Volume fraction] 36.9 % Low 37-47 [facility] Comment on above: Performed By: #### L 504.2610, L500.4050, L3130.0010, L100.0100, L3100.3425 #### [facility] [address] [place], [address] Hemoglobin (Bld) [Mass/Vol] 12.1 g/dL Normal 12.0-15.0 [facility] Comment on above: Performed By: #### L 504.2610, L500.4050, L3130.0010, L100.0100, L3100.3425 #### [facility] [address] [place], [address] IG% 0.600 Normal 0.0-0.9 [facility] Comment on above: Result Comment: IG% - Immature Granulocytes (promyelocytes, myelocytes and metamyelocytes) > 1% indicates that a LEFT SHIFT is Present. Performed By: #### L 504.2610, L500.4050, L3130.0010, L100.0100, L3100.3425 #### [facility] [address] [place], [address] Lymphocytes/100 WBC (Bld) 17.7 % Low 19-41 [facility] Comment on above: Performed By: #### L 504.2610, L500.4050, L3130.0010, L100.0100, L3100.3425 #### [facility] [address] [place], [address] MCH (RBC) [Entitic mass] 28.8 pg Normal 27.0-32.0 [facility] Comment on above: Performed By: #### L 504.2610, L500.4050, L3130.0010, L100.0100, L3100.3425 #### [facility] [address] [place], [address] MCHC (RBC) [Mass/Vol] 32.8 g/dL Normal 32-36 [facility] Comment on above: Performed By: #### L 504.2610, L500.4050, L3130.0010, L100.0100, L3100.3425 #### [facility] [address] [place], [address] MCV (RBC) [Entitic vol] 87.9 fL Normal 81-99 [facility] Comment on above: Performed By: #### L 504.2610, L500.4050, L3130.0010, L100.0100, L3100.3425 #### [facility] [address] [place], [address] Monocytes/100 WBC (Bld) 5.3 % Normal 0-10 [facility] Comment on above: Performed By: #### L 504.2610, L500.4050, L3130.0010, L100.0100, L3100.3425 #### [facility] [address] [place], [address] Neutrophils/100 WBC (Bld) 73.9 % High 47-70 [facility] Comment on above: Performed By: #### L 504.2610, L500.4050, L3130.0010, L100.0100, L3100.3425 #### [facility] [address] [place], [address] Nucleated RBC (Bld) [#/Vol] 0 10*3/uL Normal 0-5 [facility] Comment on above: Performed By: #### L 504.2610, L500.4050, L3130.0010, L100.0100, L3100.3425 #### [facility] [address] [place], [address] Platelet mean volume (Bld) [Entitic vol] 9.2 fL Normal 6.2-12.0 [facility] Comment on above: Performed By: #### L 504.2610, L500.4050, L3130.0010, L100.0100, L3100.3425 #### [facility] [address] [place], [address] Platelets (Bld) [#/Vol] 356 10*3/uL Normal 150-450 [facility] Comment on above: Performed By: #### L 504.2610, L500.4050, L3130.0010, L100.0100, L3100.3425 #### [facility] [address] [place], [address] RBC (Bld) [#/Vol] 4.20 10*6/uL Normal 4.2-5.4 [facility] Comment on above: Performed By: #### L 504.2610, L500.4050, L3130.0010, L100.0100, L3100.3425 #### [facility] [address] [place], [place], [address] RDW SD 43.8 fl Normal 35.1-43.9 [facility] Comment on above: Performed By: #### L 504.2610, L500.4050, L3130.0010, L100.0100, L3100.3425 #### [facility] [address] [place], [place], [address] WBC (Bld) [#/Vol] 9.3 10*3/uL Normal 4.4-11.0 [facility] Comment on above: Performed By: #### L 504.2610, L500.4050, L3130.0010, L100.0100, L3100.3425 #### [facility] [address] [place], [address] Carbon dioxide measurementOr dered By: Gabe Birmingham on 05-13-2024 CO2 [Moles/Vol] 26.0 mmol/L 21.0-32.0 [facility] Chloride measurementOrdered By: Gabe Birmingham on 05-13-2024 Chloride [Moles/Vol] 107 mmol/L 98-107 [facility] Comprehensive Metabolic Prof ilon 05-13-2024 Albumin [Mass/Vol] 3.5 g/dL Normal 3.2-5.0 [facility] Comment on above: Performed By: #### L 504.2610, L500.4050, L3130.0010, L100.0100, L3100.3425 #### [facility] [address] [place], [place], [address] Albumin/Globulin [Mass ratio] 0.9 {ratio} Normal 0.9-2.4 [facility] Comment on above: Performed By: #### L 504.2610, L500.4050, L3130.0010, L100.0100, L3100.3425 #### [facility] [address] [place], [address] ALK P 57 U/L Normal 45-117 [facility] Comment on above: Performed By: #### L 504.2610, L500.4050, L3130.0010, L100.0100, L3100.3425 #### [facility] [address] [place], [address] ALT [Catalytic activity/Vol] 19 U/L Normal 13-56 [facility] Comment on above: Performed By: #### L 504.2610, L500.4050, L3130.0010, L100.0100, L3100.3425 #### [facility] [address] [place], [place], [address] AST [Catalytic activity/Vol] 14 U/L Low 15-37 [facility] Comment on above: Performed By: #### L 504.2610, L500.4050, L3130.0010, L100.0100, L3100.3425 #### [facility] [address] [place], [address] Bilirubin [Mass/Vol] 0.50 mg/dL Normal 0.20-1.00 [facility] Comment on above: Result Comment: For patients on eltrombopag therapy, use of Dimension [place] TBIL is not recommended. Performed By: #### L 504.2610, L500.4050, L3130.0010, L100.0100, L3100.3425 #### [facility] [address] [place], [address] BUN/CRE 14.0 RATIO Normal 10-20 [facility] Comment on above: Performed By: #### L 504.2610, L500.4050, L3130.0010, L100.0100, L3100.3425 #### [facility] [address] [place], [address] CA,Total 10.0 mg/dL Normal 8.5-10.1 [facility] Comment on above: Performed By: #### L 504.2610, L500.4050, L3130.0010, L100.0100, L3100.3425 #### [facility] [address] [place], [address] Chloride [Moles/Vol] 107 mmol/L Normal 98-107 [facility] Comment on above: Performed By: #### L 504.2610, L500.4050, L3130.0010, L100.0100, L3100.3425 #### [facility] [address] [place], [address] CO2 [Moles/Vol] 26.0 mmol/L Normal 21.0-32.0 [facility] Comment on above: Performed By: #### L 504.2610, L500.4050, L3130.0010, L100.0100, L3100.3425 #### [facility] [address] [place], [address] Creatinine [Mass/Vol] 1.50 mg/dL High 0.55-1.02 [facility] Comment on above: Result Comment: The validity of the calculated GFR GFRAA in patients over 70 years has not been determined. Clinical correlation is essential. Performed By: #### L 504.2610, L500.4050, L3130.0010, L100.0100, L3100.3425 #### [facility] [address] [place], [address] EST GFR - AA 44 mL/min Low >60 [facility] Comment on above: Result Comment: Afri can Pakistani GFR Calc Performed By: #### L 504.2610, L500.4050, L3130.0010, L100.0100, L3100.3425 #### [facility] [address] [place], [address] GAP 5 Normal 5-15 [facility] Comment on above: Performed By: #### L 504.2610, L500.4050, L3130.0010, L100.0100, L3100.3425 #### [facility] [address] [place], [address] GFR/1.73 sq M.predicted among non-blacks MDRD (S/P/Bld) [Vol rate/Area] 36 mL/min/{1.73_m2} Low >60 [facility] Comment on above: Result Comment: Non- GFR Calc Performed By: #### L 504.2610, L500.4050, L3130.0010, L100.0100, L3100.3425 #### [facility] [address] [place], [address] Globulin (S) [Mass/Vol] 3.9 g/dL Normal 2.2-4.2 [facility] Comment on above: Performed By: #### L 504.2610, L500.4050, L3130.0010, L100.0100, L3100.3425 #### [facility] [address] [place], [address] Glucose [Mass/Vol] 90 mg/dL Normal 74-106 [facility] Comment on above: Performed By: #### L 504.2610, L500.4050, L3130.0010, L100.0100, L3100.3425 #### [facility] [address] [place], [address] Potassium [Moles/Vol] 4.8 mmol/L Normal 3.5-5.1 [facility] Comment on above: Performed By: #### L 504.2610, L500.4050, L3130.0010, L100.0100, L3100.3425 #### [facility] [address] [place], [address] Sodium [Moles/Vol] 138 mmol/L Normal 136-145 [facility] Comment on above: Performed By: #### L 504.2610, L500.4050, L3130.0010, L100.0100, L3100.3425 #### [facility] [address] [place], [place], [id number] (579) T PROT 7.4 g/dL Normal 6.4-8.2 [facility] Comment on above: Performed By: #### L 504.2610, L500.4050, L3130.0010, L100.0100, L3100.3425 #### [facility] [address] [place], [address] Urea nitrogen [Mass/Vol] 21 mg/dL High 7-18 [facility] Comment on above: Performed By: #### L 504.2610, L500.4050, L3130.0010, L100.0100, L3100.3425 #### [facility] [address] [place], [place], [id number] Eosinophil percentageOrdered By: Gabe Birmingham on 05-13-2024 Eosinophils/100 WBC (Bld) 1.9 % 0-5 [facility] Erythrocyte distribution wid th ratioOrdered By: Gabe Birmingham on 05-13-2024 Erythrocyte distribution width (RBC) [Ratio] 13.7 % 11.6-14.6 [facility] Erythrocyte distribution wid th standard deviationOrdered By: Gabe Birmingham on 05-13-2024 Erythrocyte distribution width (RBC) [Entitic vol] 43.8 fL 35.1-43.9 [facility] Estimated glomerular filtrat ion rate (GFR) AmericanOrdered By: Gabe Birmingham on 05-13-2024 Estimated GFR (MDRD) Amer 44 mL/min Low >60 [facility] Comment on above: GFR Calc Gamma globulin Elph [Mass/Vo l]Ordered By: Gabe Birmingham on 05-13-2024 Gamma Globulins (KARISSA) 1.2 g/dL 0.4-1.8 [facility] Glomerular filtration rate ( GFR) estimationOrdered By: Gabe Birmingham on 05-13-2024 Estimated GFR (MDRD) Non-Af Amer 36 mL/min Low >60 [facility] Comment on above: Non- GFR Calc Glucose measurementOrdered B y: Gabe Birimngham on 05-13-2024 Glucose [Mass/Vol] 90 mg/dL 74-106 [facility] Hematocrit Auto (Bld) [Volum e fraction]Ordered By: Gabe Birmingham on 05-13-2024 Hematocrit (Bld) [Volume fraction] 36.9 % Low 37-47 [facility] Hemoglobin measurementOrdere d By: Gabe Birmingham on 05-13-2024 Hemoglobin (Bld) [Mass/Vol] 12.1 g/dL 12.0-15.0 [facility] IgA [Mass/Vol]Ordered By: Hillary Birmingham on 05-13-2024 Immunoglobulin A 607 mg/dL High 64-422 [facility] IgG [Mass/Vol]Ordered By: Hillary Birmingham on 05-13-2024 Immunoglobulin G 1337 mg/dL 586-1602 [facility] Immature granulocytes/100 WB C Auto (Bld)Ordered By: Gabe Birmingham on 05-13-2024 Immature granulocytes/100 WBC (Bld) 0.600 % 0.0-0.9 [facility] Comment on above: IG% - Immature Granu locytes (promyelocytes, myelocytes and metamyelocytes) > 1% indicates that a LEFT SHIFT is Present. Immunoglobulin M measurement Ordered By: Gabe Birmingham on 05-13-2024 Immunoglobulin M 67 mg/dL 26-217 [facility] Immunoglobulin light chains. kappa [Mass/Vol]Ordered By: Gabe Birmingham on 05-13-2024 Free Nubieber Light Chains, Quant 76.1 mg/L High 3.3-19.4 [facility] Immunoglobulin light chains. kappa/Immunoglobulin light chains.lambda (S) [Mass ratio]Ordered By: Gabe Birmingham on 05-13-2024 Free Nubieber/Lambda Light Chain Ratio 1.15 0.26-1.65 [facility] Comment on above: Performed at: [address] [id number] Director: Jacob Valera PhD, Phone: [phone] Interpretation IEP [Interp]O rdered By: Gabe Birmingham on 05-13-2024 Immunofixation Screen Comment High . [facility] Comment on above: Immunofixation shows IgA monoclonal protein with kappalight chain specificity. LDHon 05-13-2024 LDH 135 U/L Normal 84-246 [facility] Comment on above: Order Comment: 1 Performed By: #### L 504.2610, L500.4050, L3130.0010, L100.0100, L3100.3425 ####[facility] [id number] [place], [place], [id number] Laboratory - Chemistry and C hemistry - challengeOrdered By: Gabe Birmingham on 05-13-2024 AST [Catalytic activity/Vol] 14 U/L Low 15-37 [facility] Lactate dehydrogenase (LDH) measurementOrdered By: Gabe Birmingham on 05-13-2024 LDH [Catalytic activity/Vol] 135 U/L 84-246 [facility] Lambda free light chain jailyn urementOrdered By: Gabe Birmingham on 05-13-2024 Free Lambda Light Chains, Quant 66.1 mg/L High 5.7-26.3 [facility] Lymphocytes Auto (Unsp spec) [#/Vol]Ordered By: Gabe Birmingham on 05-13-2024 Lymphocytes (Bld) [#/Vol] 1.65 10*3/uL 0.83-4.51 [facility] Lymphocytes/100 WBC Auto (Un sp spec)Ordered By: Gabe Birmingham on 05-13-2024 Lymphocytes/100 WBC (Bld) 17.7 % Low 19-41 [facility] MCV (mean corpuscular volume ) determinationOrdered By: Gabe Birmingham on 05-13-2024 MCV (RBC) [Entitic vol] 87.9 fL 81-99 [facility] Mean corpuscular hemoglobin (MCH) determinationOrdered By: Gabe Birmingham on 05-13-2024 MCH (RBC) [Entitic mass] 28.8 pg 27.0-32.0 [facility] Mean corpuscular hemoglobin concentration (MCHC) determinationOrdered By: Gabe Birmingham on 05-13-2024 MCHC (RBC) [Mass/Vol] 32.8 g/dL 32-36 [facility] Mean platelet volume determi nationOrdered By: Gabe Birmingham on 05-13-2024 Platelet mean volume (Bld) [Entitic vol] 9.2 fL 6.2-12.0 [facility] Monocyte percentageOrdered B y: Gabe Birmingham on 05-13-2024 Monocytes/100 WBC (Bld) 5.3 % 0-10 [facility] Neutrophil percentageOrdered By: Gabe Birmingham on 05-13-2024 Neutrophils/100 WBC (Bld) 73.9 % High 47-70 [facility] Nucleated red blood cell per centageOrdered By: Gabe Birmingham on 05-13-2024 Nucleated RBC/100 WBC (Bld) [Ratio] 0 % 0-5 [facility] Oncology Visit Reporton Oncology Visit Report [facility] [address] [place] [address] OFFICE VISIT Date of Service: 05/13/24 1124 MR#: [id number] Acct: [id number] Name: GLENYS LOERA Rufino Rep #: [id number] : 1955 From: Gabe Birmingham MD Age/Sex: 69/F Location: [facility] Status: Signed HPI Subjective Date of Service 05/13/24 Chief Complaint Abnormal protein in blood History of Present Illness 69-year-old female medical history notable for COPD, ex-smoker quit over 10 years chronic renal failure (over 10 years), polyneuropathy, degenerative joint disease and she is legally blind from macular degeneration. Patient was noted on blood testing to have a monoclonal IgA kappa. PFSH Surgical History (Updated 05/13/24 @ 11:35 by Maday Braxton) Hx of endoscopy Hx of shoulder surgery Hx of cholecystectomy History of left knee replacement Family History (Updated 05/13/24 @ 11:34 by Maday Braxton) Mother Diabetes Heart disease Father Hypertension Brother Cancer Sister Breast cancer Social History (Updated 05/13/24 @ 11:33 by Velvet Swanger) Smoking Status: Former smoker Tobacco: How many years used: 20 alcohol intake: never substance use type: does not use ROS Constitutional Constitutional: Reports systems reviewed and no addt'l complaints, except as documented, weight loss and other Details: Active weight loss ; Denies anorexia, fever(s) or night sweats Eyes Eyes: Reports systems reviewed and no addt'l complaints, except as documented and blindness ENT HEENT: Reports systems reviewed and no addt'l complaints, except as documented; Denies mouth lesions Cardiovascular Cardiovascular: Reports systems reviewed and no addt'l complaints, except as documented; Denies chest pain or edema Respiratory/Chest Respiratory/Chest: Reports systems reviewed and no addt'l complaints, except as documented; Denies cough or dyspnea Gastrointestinal Gastrointestinal: Reports systems reviewed and no addt'l complaints, except as documented; Denies change in bowel habits, dysphagia or nausea Genitourinary Genitourinary: Reports systems reviewed and no addt'l complaints, except as documented Musculoskeletal Musculoskeletal: Reports systems reviewed and no addt'l complaints, except as documented and arthralgias; Denies back pain Integumentary Integumentary: Reports systems reviewed and no addt'l complaints, except as documented; Denies new lesions Neurologic Neurologic: Reports systems reviewed and no addt'l complaints, except as documented and paresthesias; Denies focal weakness or frequent falls Psychiatric Psychiatric: Reports systems reviewed and no addt'l complaints, except as documented Endocrine Endocrinology: Reports systems reviewed and no addt'l complaints, except as documented Hematologic/Lymphatic Hematologic/Lymphatic : Reports systems reviewed and no addt'l complaints, except as documented; Denies lymphadenopathy Allergic/Immunologic Allergic/Immunologic: Reports systems reviewed and no addt'l complaints, except as documented Intake Vital Signs 04/21/24 13:56 05/13/24 11:25 05/13/24 11:35 Height 5 ft 5 in 5 ft 5 in 5 ft 5 in Weight: 80.739 kg 79.379 kg BMI 29.6 29.1 BP 118/80 118/77 Blood Pressure Location Lt brachial Lt brachial Position Sitting Sitting Respiration 16 16 Pulse 81 79 Pulse Source Monitor Monitor Temp 97.7 F L 96.7 F L Temperature Source Temporal Artery Pulse Oximetry (%) 97 95 Oxygen Delivery Method room air room air Intake Is patient in pain?: No Allergies formoterol (From Dulera) Adverse Reaction (Severe, Verified 05/13/24 11:29) Rash mometasone furoate (From Dulera) Adverse Reaction (Severe, Verified 05/13/24 11:29) Rash levofloxacin (From Levaquin) Adverse Reaction (Verified 05/13/24 11:29) Pain in joints Medications ???Medication ???Instructions ???Recorded ???Confirmed ???Type Ipratropium/Albuterol Sulfate 4 g IH 4X/DAY 07/20/13 05/13/24 Hi story [Combivent Respimat Inhal Mcfarlan] albuterol sulfate 90 mcg/actuation 1 - 2 puff inhalation Q6H PRN NJ N 07/20/13 05/13/24 Rx aerosol inhaler (Ventolin HFA) Wheezing ##1 cholecalciferol (vitamin D3) 1,250 1,250 mcg PO QWEEK #4 caps 04/2105/13/24 Rx mcg (50,000 unit) capsule meclizine 25 mg tablet 25 mg PO BID PRN dizziness #90 tab s 04/21/24 05/13/24 Rx B-complex with vitamin C 1 cap PO QDAY 05/13/24 05/13/24 Hi story budesonide-formoterol HFA 160 1 inh inhalation ONCE 05/13/2408/01 History mcg-4.5 mcg/actuation aerosol inhaler (Symbicort) Have you fallen in the past year?: No Central Venous Access Central Venous Access: No Laboratory Tests 10/15/23 15:35 KARISSA M-Uziel 0.3 H Exam Physical Exam Narrative Patient is legally blind, can perceiv (more content not included)... Normal [facility] Platelet countOrdered By: Hillary Birmingham on 05-13-2024 Platelets (Bld) [#/Vol] 356 10*3/uL 150-450 [facility] Potassium measurementOrdered By: Gabe Birmingham on 05-13-2024 Potassium [Moles/Vol] 4.8 mmol/L 3.5-5.1 [facility] Protein Fractions Immunofixa tion Faustino [Interp]Ordered By: Gabe Birmingham on 05-13-2024 M-Uziel (KARISSA) Comment: g/dL Not Observed [facility] Comment on above: Due to the small jamison ntity of monoclonal protein, unable toquantitate the M-spike. RBC Auto (Bld) [#/Vol]Ordere d By: Gabe Birmingham on 05-13-2024 RBC (Bld) [#/Vol] 4.20 10*6/uL 4.2-5.4 [facility] Serum albumin/globulin ratio Ordered By: Gabe Birmingham on 05-13-2024 Albumin/Globulin (KARISSA) 1.0 0.7-1.[address] [facility] Serum anion gap measurementO rdered By: Gabe Birmingham on 05-13-2024 Anion gap [Moles/Vol] 5 mmol/L 5-15 [facility] Serum globulin measurement ( mass/volume)Ordered By: Gabe Birmingham on 05-13-2024 Globulin (S) [Mass/Vol] 3.6 g/dL 2.2-3.9 [facility] Serum or plasma alanine lux otransferase (ALT) measurementOrdered By: Gabe Birmingham on 05-13-2024 ALT [Catalytic activity/Vol] 19 U/L 13-56 [facility] Serum or plasma albumin jailyn urement (mass/volume)Ordered By: Gabe Birmingham on 05-13-2024 Albumin [Mass/Vol] 3.5 g/dL 3.2-5.0 [facility] Serum or plasma alkaline elisabeth sphatase measurementOrdered By: Gabe Birmingham on 05-13-2024 ALP [Catalytic activity/Vol] 57 U/L 45-117 [facility] Serum or plasma calcium jailyn urement (mass/volume)Ordered By: Gabe Birmingham on 05-13-2024 Calcium [Mass/Vol] 10.0 mg/dL 8.5-10.1 [facility] Serum or plasma creatinine m easurement (mass/volume)Ordered By: Gabe Birmingham on 05-13-2024 Creatinine [Mass/Vol] 1.50 mg/dL High 0.55-1.02 [facility] Comment on above: The validity of the calculated GFR & GFRAA in patients over 70 years has not been determined. Clinical correlation is essential. Serum or plasma protein jailyn urement (mass/volume)Ordered By: Ronaldivan Valencia on 05-13-2024 Protein [Mass/Vol] 6.9 g/dL 6.0-8.5 [facility] Serum or plasma urea nitroge n measurement (mass/volume)Ordered By: Gabe Valencia on 05-13-2024 Urea nitrogen [Mass/Vol] 21 mg/dL High 7-18 [facility] Sodium levelOrdered By: Ronald love Valencia on 05-13-2024 Sodium [Moles/Vol] 138 mmol/L 136-145 [facility] Total proteinOrdered By: Carlos wilson Valencia on 05-13-2024 Protein [Mass/Vol] 7.4 g/dL 6.4-8.2 [facility] White blood cell (WBC) count Ordered By: Gabe Valencia on 05-13-2024 WBC (Bld) [#/Vol] 9.3 10*3/uL 4.4-11.0 [facility] CNOVon 04-27-2024 CN Office Visit (UCTR ) GLENYS LOERA Rufino ([id number]) 1955 F [facility] Date Time Provider Department 04/27/24 12:30 PM RAISA GARCIA [facility] During your visit today, we recorded the following information about you: Temperature Pulse Respiration Blood pressure 98.2 degrees 89/minute 20/minute 104/70 Weight 79.8 kg Raisa Garcia APRN.CNP 04/27/2024 1:07 PM Signed This note was created using NoteWriter. Subjective Glenys Loera is a 69 year old female. 69 year old female with PMH COPD presents for illness. Acute onset 2 nights ago +chest congestion +chills +cough +productive +SOB +winded +headache +fever Denies N/V/D Denies body aches Mucinex AND Tylenol for chest congestion +exposure to ill contacts, granddaughter + Influenza A The history is provided by the patient. No specialized language instructor was used. Flu Like Symptoms This is a new problem. The current episode started in the past 7 days. The problem occurs constantly. The problem has been unchanged. Associated symptoms include chills, congestion, coughing, fatigue, a fever, headaches, myalgias and swollen glands. Pertinent negatives include no abdominal pain, anorexia, arthralgias, change in bowel habit, chest pain, diaphoresis, joint swelling, nausea, neck pain, numbness, rash, sore throat, urinary symptoms, vertigo, visual change, vomiting or weakness. Nothing aggravates the symptoms. Treatments tried: see HPI. The treatment provided mild relief. PAST MEDICAL HISTORY Diagnosis Date NONE PAST SURGICAL HISTORY Procedure Laterality Date LAPS ABD PRTMANDOMENTUM DX W/WO SPEC BR/WA SPX Laparoscopy LAPS SURG CHOLECYSTECTOMY W/CHOLANGIOGRAPHY failed IOC PAST SURGICAL HISTORY OF left shoulder-metal pin ALLERGIES Levofloxacin MEDICATIONS meclizine (ANTIVERT) 25 mg tab Take 25 mg by mouth two times a day as needed (dizziness). cholecalciferol, Vitamin D3, (VITAMIN D3) 1,250 mcg (50,000 unit) cap capsule Take 1 capsule by mouth one time a week. albuterol (PROVENTIL) 2.5 mg /3 mL (0.083 %) nebulizer solution budesonide-formoterol (SYMBICORT) 160-4.5 mcg/actuation inhaler Inhale 2 Puffs as instructed twice daily. cetirizine (ZYRTEC) 10 mg tablet Take 10 mg by mouth once daily. Vit A,C,I-Gchg-Pyzvkq (PRESERVISION AREDS) 14,320-226-200 iziy-ft-niwp cap Take 1 capsule by mouth once daily. oseltamivir (TAMIFLU) 75 mg capsule Take 1 capsule by mouth two times a day for 5 days. fluticasone (FLONASE) 50 mcg/actuation nasal spray Use 2 Sprays in each nostril once daily. Rinse mouth after use. (Patient not taking: Reported on 03/22/2024) omeprazole(PRILOSEC 20 MG CAP) Take one(1) capsule daily. (Patient not taking: Reported on 11/18/2021) FAMILY HISTORY Problem Relation Age of Onset Diabetes Mother Heart Mother pacemaker other (Other [Other]) Mother depression Hypertension Father Social History Tobacco Use Smoking status: Every Day Current packs/day: 1.00 Average packs/day: 1 pack/day for 15.0 years (15.0 ttl pk-yrs) Types: Cigarettes Smokeless tobacco: Never Substance Use Topics Alcohol use: Yes Comment: occasionally Drug use: No Review of Systems Constitutional: Positive for chills, fatigue and fever. Negative for diaphoresis. HENT: Positive for congestion. Negative for sore throat. Respiratory: Positive for cough. Cardiovascular: Negative for chest pain. Gastrointestinal: Negative for abdominal pain, anorexia, change in bowel habit, nausea and vomiting. Musculoskeletal: Positive for myalgias. Negative for arthralgias, joint swelling and neck pain. Skin: Negative for rash. Neurological: Positive for headaches. Negative for vertigo, weakness and numbness. Objective BP 104/70 Pulse 89 Temp 36.8 ?C (98.2 ?F) Resp 20 Wt 79.8 kg (175 lb 14.8 oz) SpO2 96% Physical Exam Vitals and nursing note reviewed. Constitutional: General: She is not in acute distress. Appearance: Normal appearance. She is normal weight. She is not ill-appearing, toxic-appearing or diaphoretic. HENT: Head: Normocephalic and atraumatic. Right Ear: Ear canal and external ear normal. Left Ear: Ear canal and external ear normal. Nose: Nose normal. No congestion or rhinorrhea. Mouth/Throat: Mouth: Mucous membranes are moist. Pharynx: Posterior oropharyngeal erythema present. No oropharyngeal exudate. Eyes: General: Right eye: No discharge. Left eye: No discharge. Extraocular Movements: Extraocular movements intact. Conjunctiva/sclera: Conjunctivae normal. Pupils: Pupils are equal, round, and reactive to light. Cardiovascular: Rate and Rhythm: Normal rate and regular rhythm. Pulses: Normal pulses. Heart sounds: Normal heart sounds. No murmur heard. No friction rub. Pulmonary: Effort: Pulmonary effort is normal. No respiratory distress. Breath sounds: No stridor. Wheez (more content not included)... Normal [facility] INFLUENZA A&B MOLECULAR (POC )on 04-27-2024 Flu A (POCT) Positive Abnormal Negative [facility] Comment on above: Location:[facility], [address], [place], [address] Interpretation and review of laboratory results Abnormal [facility] Procedural Control Valid [facility] Location:[facility], [address], [place], [place], [id number] [place] [address] POINT OF CARE [facility] Neurology Visit Reporton Neurology Visit Report [facility] [address] [facility] [address] [place] [address] OFFICE VISIT Date of Service: 04/21/24 MR#: [id number] Acct: [id number] Name: GLENYS LOERA Rep #: [id number] : 1955 Provider: Dr. Cecilio love MD Age/Sex: 69/F Location: [facility] [place]. Status: Signed HPI HPI Chief Complaint: Est Care Details: Interim History: Glenys returns for follow-up visit. She has a history of COPD, left total knee replacement, left shoulder surgery, vitamin D deficiency and bilateral eye macular degeneration. She is accompanied by her daughter. She began to experience dizziness in 2019. The dizziness was of acute onset and began while seated. She described the dizziness as disequilibrium. The disequilibrium does not fluctuate with movement and has been continuous since the time of onset. Within recent months the severity of dizziness has diminished with the use of meclizine 25 mg twice daily as needed (25 mg 3 times daily was sedating) though it remains continuous. She denies having lightheadedness or vertigo however an MRI report from 2019 reported that the patient had vertigo as well as right ear pain at that time. She has had occasional right ear tinnitus. She denied having hearing loss. She denied having weakness. She has severe bilateral eye visual impairment due to macular degeneration. She has chronic neck pain and, at times, experiences right occipital head pain associated with her neck pain. Her neck pain is not continuous. She had a fall in the and sustained a left shoulder region fracture for which she had surgery. Her gait has slowed. She experiences occasional bilateral lower extremity numbness and tingling. She has chronic sinus symptoms manifesting with rhinorrhea and sneezing. Cetirizine was of benefit for this. She had previously seen an ENT specialist regarding her dizziness and no ENT path ology to account for her symptoms was identified. She had a physical therapy evaluation for her disequilibrium and no abnormalities were noted and therapy was not pursued. She had a head MRI in 2019 that revealed a mild subcortical chronic small vessel ischemic disease and mild age-related cerebral atrophy. She has been exhibiting cervical dyskinesias since around 2021. She has fatigue. Her laboratory studies earlier in 2022 revealed vitamin D deficiency, a B12 level near the low end of the normal range and an abnormal serum free light chains. 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 She also has had chronic renal insufficiency. Flurbiprofen was of some benefit for her musculoskeletal pain however the medication was discontinued due to her renal insufficiency. She takes acetaminophen and this is of some benefit for her musculoskeletal pain. Physical Exam: Neuro: The patient is awake and alert and responds appropriately; speech is fluent; gait is slow and slightly unsteady (this is, at least in part, related to her visual impairment); motor strength is 5/5 in the quadriceps bilaterally and foot dorsiflexors bilaterally Neck: No bruits Heart: Regular rhythm and rate Supplemental Info Head MRI with attention to the IACs with and without contrast (05/07/2019): FINDINGS: No intracranial mass, mass effect, or midline shift. No enhancing lesion following the administration of contrast. No territorial infarct or acute ischemia. Normal internal auditory canals bilaterally. 7th and 8th cranial nerves are unremarkable. No abnormal enhancement. Normal size of the ventricles and extra-axial spaces for the patient''s age. There are a limited number of small white matter hyperintensities, distributed throughout the deep white matter tracts of the cerebral hemispheres, consistent with mild chronic white matter ischemic changes. There is no extra-axial fluid accumulation. Normal flow voids within the major intracranial circulation suggesting patency by spin echo criteria. There is no enhancing intra-axial or extra-axial abnormality. Normal sella turcica, pituitary gland, infundibular stalk, optic chiasm and hypothalamus. Normal midbrain, kellen and medulla. Normal cerebellum. Normal basal cisterns. Normal bilateral temporal bones. No demonstrated orbital abnormality, within the constraints of a routine brain study. Normal visualized paranasal sinuses. Normal calvarium and skull base. Normal visualized soft tissue structures. Normal visualized upper cervical spine. IMPRESSION: 1. Mild microvascular ischemic changes. Otherwise negative study. Normal IACs. These images were reviewed on 05/31/2023. Mild bilateral subcortical chronic small vessel ischemic disease is noted. Mild diffuse age-related atrophy is noted. BMP, lipid profile, vitamin D (12/07/2022): Creatinine 1.14 (high), EGFR 50 (low) triglycerides 60 (normal), cholesterol 135 (normal), LDL 58 (normal), V (more content not included)... [facility] GLENYS LOERA ([id number]) 1955 F CHT Date Time Provider Department 03/22/24 10:45 AM SANDR[facility] ROJAS [facility] During your visit today, we recorded the following information about you: Temperature Pulse Respiration Blood pressure 97.5 degrees 103/minute 18/minute 144/84 Weight 80.8 kg Sandra Rojas APRN.[facility] 03/22/2024 11:44 AM Signed CC: Patient presents with: Cough: Cough, chest congestion, left side hurts and wheezy x 1 day HPI: Glenys Loera is a 68 year old female who presents to the office with complaint of chest congestion, head congestion, and cough, productive for the past day. Symptoms are worsening Associated symptoms includes wheezing. Denies nausea, vomiting , and diarrhea. Treatments tried include nothing so far. with no relief of symptoms. Sick contacts: unknown. History of asthma, frequent episodes of bronchitis, chronic bronchitis, bronchiectasis or COPD: No Smoker: No Seasonal/environmenta l allergies: No The ROS is otherwise negative. The patient's pmh, medications, allergies, and past visits are reviewed. PHYSICAL EXAM: BP 144/84 Pulse 103 Temp 36.4 ?C (97.5 ?F) (Tympanic) Resp 18 Wt 80.8 kg (178 lb 2.1 oz) SpO2 97% General appearance: alert, cooperative, pleasant, in no acute distress Head: Normocephalic Eyes: EOM's intact, conjunctiva pink and moist, no icterus, sclera white, non-injected Ears: Right ear: External ear/canal- Normal, TM - clear with good landmarks. Left ear: External ear/canal- Normal, TM - clear with good landmarks Oropharynx:moist without lesions, No erythema, exudates or tonsillar hypertrophy. Heart: Negative. RRR without obvious murmur, gallop, or rubs. No ectopy. Lungs: wheezing diffusely PAST MEDICAL HISTORY Diagnosis Date NONE PAST SURGICAL HISTORY Procedure Laterality Date LAPS ABD PRTMANDOMENTUM DX W/WO SPEC BR/WA SPX Laparoscopy LAPS SURG CHOLECYSTECTOMY W/CHOLANGIOGRAPHY failed IOC PAST SURGICAL HISTORY OF left shoulder-metal pin ALLERGIES Levofloxacin MEDICATIONS cholecalciferol, Vitamin D3, (VITAMIN D3) 1,250 mcg (50,000 unit) cap capsule Take 1 capsule by mouth one time a week. albuterol (PROVENTIL) 2.5 mg /3 mL (0.083 %) nebulizer solution budesonide-formoterol (SYMBICORT) 160-4.5 mcg/actuation inhaler Inhale 2 Puffs as instructed twice daily. cetirizine (ZYRTEC) 10 mg tablet Take 10 mg by mouth once daily. Vit A,C,V-Zrxj-Nnpiyo (PRESERVISION AREDS) 14,320-226-200 chmd-uj-fkkq cap Take 1 capsule by mouth once daily. fluticasone (FLONASE) 50 mcg/actuation nasal spray Use 2 Sprays in each nostril once daily. Rinse mouth after use. (Patient not taking: Reported on 03/22/2024) omeprazole(PRILOSEC 20 MG CAP) Take one(1) capsule daily. (Patient not taking: Reported on 11/18/2021) FAMILY HISTORY Problem Relation Age of Onset Diabetes Mother Heart Mother pacemaker other (Other [Other]) Mother depression Hypertension Father Social History Tobacco Use Smoking status: Every Day Current packs/day: 1.00 Average packs/day: 1 pack/day for 15.0 years (15.0 ttl pk-yrs) Types: Cigarettes Smokeless tobacco: Never Substance Use Topics Alcohol use: Yes Comment: occasionally Drug use: No ASSESSMENT/PLAN: 1. Acute cough - ICD9: 786.2, ICD10: R05.1 (primary diagnosis) - XR CHEST 2V FRONTAL/LAT * * * * Physician Interpretation * * * * EXAMINATION: CHEST RADIOGRAPH (2 VIEW FRONTAL AND LATERAL) CLINICAL HISTORY: Acute cough MQ: XC2_6 EXAM DATE/TIME: 03/22/2024 11:18 AM COMPARISON: No relevant prior studies available. RESULT: Lines, tubes, and devices: None. Lungs and pleura: * Question of some LEFT basilar atelectasis or infiltrate. * Some peribronchial wall thickening is noted bilaterally in the hilar regions No other consolidation. No lung mass. No pleural effusion. No pneumothorax. Cardiomediastinal silhouette: Normal cardiomediastinal silhouette. Bones and soft tissues: Unremarkable. IMPRESSION IMPRESSION: Findings as discussed under Results portion of report. . Shell Freezing Machine Operator: TONY Transcribe Date/Time: Mar 22 2024 11:32A Dictated by : PRECIOUS MURPHY DO 2. Respiratory infection - ICD9: 519.8, ICD10: J98.8 - DOXYCYCLINE HYCLATE 100 MG TABLET Prescription instructions reviewed with patient as applicable. Potential red flag symptoms discussed with the patient. Reviewed appropriate action plan to take if red flag symptoms occur. Patient agreeable to treatment plan. Sandra Rojas APRN.[employer] Referring Provider: SELF [[id number]] Allergies As of Date: 03/22/2024 Noted Allergy Reaction LEVOFLOXACIN 07/08/2015 14 - Other: See Comments Comments: Upsets stomach Date Reviewed: 03/22/2024 Reviewed by: Brandy Bailey LPN - Fully Assessed Reason for Visit: Cough [28] Cmt: Cough, chest congestion, left side hurts and wheez (more content not included)... Normal [facility] XR CHEST 2V FRONTAL/LATon XR CHEST 2V FRONTAL/LAT * * *Final Repor t* * * DATE OF EXAM: Mar 22 2024 11:18AM WOX 5291 - XR CHEST 2V FRONTAL/LAT / PROCEDURE REASON: Acute cough * * * * Physician Interpretation * * * * EXAMINATION: CHEST RADIOGRAPH (2 VIEW FRONTAL and LATERAL) CLINICAL HISTORY: Acute cough MQ: XC2_6 EXAM DATE/TIME: 03/22/2024 11:18 AM COMPARISON: No relevant prior studies available. RESULT: Lines, tubes, and devices: None. Lungs and pleura: * Question of some LEFT basilar atelectasis or infiltrate. * Some peribronchial wall thickening is noted bilaterally in the hilar regions No other consolidation. No lung mass. No pleural effusion. No pneumothorax. Cardiomediastinal silhouette: Normal cardiomediastinal silhouette. Bones and soft tissues: Unremarkable. IMPRESSION: Findings as discussed under Results portion of report. . Shell Freezing Machine Operator: TONY Transcribe Date/Time: Mar 22 2024 11:32A Dictated by : PRECIOUS MURPHY DO This examination was interpreted and the report reviewed and electronically signed by: PRECIOUS MURPHY DO on Mar 22 2024 11:33AM EST [id number] Normal [facility] XR Chest PA and Lateralon IMPRESSION: Findings as discussed under Results portion of report. . Shell Freezing Machine Operator: TONY Transcribe Date/Time: Mar 22 2024 11:32A Dictated by : PRECIOUS MURPHY DO This examination was interpreted and the report reviewed and electronically signed by: PRECIOUS MURPHY DO on Mar 22 2024 11:33AM EST DIVISION OF RADIOLOGY * * *Final Report* * * DATE OF EXAM: Mar 22 2024 11:18AM WOX 5291 - XR CHEST 2V FRONTAL/LAT / PROCEDURE REASON: Acute cough * * * * Physician Interpretation * * * * EXAMINATION: CHEST RADIOGRAPH (2 VIEW FRONTAL & LATERAL) CLINICAL HISTORY: Acute cough MQ: XC2_6 EXAM DATE/TIME: 03/22/2024 11:18 AM COMPARISON: No relevant prior studies available. RESULT: Lines, tubes, and devices: None. Lungs and pleura: * Question of some LEFT basilar atelectasis or infiltrate. * Some peribronchial wall thickening is noted bilaterally in the hilar regions No other consolidation. No lung mass. No pleural effusion. No pneumothorax. Cardiomediastinal silhouette: Normal cardiomediastinal silhouette. Bones and soft tissues: Unremarkable. DIVISION OF RADIOLOGY Provider, Toma Delores lenz [place] - 03/22/2024 * * *Final Report* * * DATE OF EXAM: Mar 22 2024 11:18AM WOX 5291 - XR CHEST 2V FRONTAL/LAT / PROCEDURE REASON: Acute cough * * * * Physician Interpretation * * * * EXAMINATION: CHEST RADIOGRAPH (2 VIEW FRONTAL & LATERAL) CLINICAL HISTORY: Acute cough MQ: XC2_6 EXAM DATE/TIME: 03/22/2024 11:18 AM COMPARISON: No relevant prior studies available. RESULT: Lines, tubes, and devices: None. Lungs and pleura: * Question of some LEFT basilar atelectasis or infiltrate. * Some peribronchial wall thickening is noted bilaterally in the hilar regions No other consolidation. No lung mass. No pleural effusion. No pneumothorax. Cardiomediastinal silhouette: Normal cardiomediastinal silhouette. Bones and soft tissues: Unremarkable. IMPRESSION IMPRESSION: Findings as discussed under Results portion of report. . Shell Freezing Machine Operator: PSCB Transcribe Date/Time: Mar 22 2024 11:32A Dictated by : PRECIOUS MURPHY DO This examination was interpreted and the report reviewed and electronically signed by: PRECIOUS MURPHY DO on Mar 22 2024 11:33AM EST [facility] Radiology [facility]narrative[facility] Chest PA and LateralOrder ed By: [facility] Provider on 03-22-2024 [facility] Dexa Bone Density Studyon Dexa Bone Density Study [facility] Imaging Services [address] [place] [address] [id number] Dexa Bone Density Study MR#: [id number] Acct: [id number] Name: GLENYS LOERA Rep #: [id number] : 1955 F 68 From: Kev corea MD PCP: Dr. Rafael Herrera MD Status: [facility] Study: Dexa Bone Density Study Date of Exam: 02/26/24 Exam# [id number] Ordering Dr: Rafael Herrera MD [id number] STUDY: DUAL ENERGY X-RAY ABSORPTIOMETRY / DXA REASON FOR EXAM: Female, 68 years old. [id number] TECHNIQUE: Bone Mineral Density (BMD) measurements of lumbar spine and bilateral hips were obtained. COMPARISON: Comparison is made with prior study February 09, 2021. FINDINGS: Lumbar Spine (L1-L4): g/cm2 (0.932) / T-score (-1.0) / Z-score (1.) Findings are suggestive of osteopenia with a low fracture risk. Left Femur Total: g/cm2 (0.749) / T-score (-1.6) / Z-score (0.0) Left Femoral Neck: g/cm2 (0.695) / T-score (-1.4) / Z-score (0.5) Right Femur Total: g/cm2 (0.703) / T-score (-2.0) / Z-score (-0.4) Right Femoral Neck: g/cm2 (0.672) / T-score (-1.6) / Z-score (0.2) The T-Scores on the most recent prior examination were: Lumbar Spine (L1-L4): There has been improvement of bone density since the previous examination. Left Femur Total: which represents a worsening of 3.5%. Right Femur Total: which represents a worsening of 5.5%. BD/Dexa Bone Density Study IMPRESSION: The patient is considered osteopenic as outlined below according to World Evans Organization (WHO) criteria with a moderate fracture risk. There has been worsening of bone density since the previous examination. Reference Information: The T-score is the number of standard deviations above or below the standard which is normal for young adults at their peak bone mineral density. The World Health Organization (WHO) interprets the T-scores as follows: Above -1 Normal bone density Between -1 and -2.5 Osteopenia Equal to / or below -2.5 Osteoporosis As a practical clinical guideline, osteopenia may be graded as follows: Mild -1 through -1.5 Moderate -1.6 through -2.0 Severe -2.1 through -2.4 The Z-score is the number of standard deviations above or below age-matched controls. A Z-score of less than -1.5 would be considered abnormal. References: 1. NIH Osteoporosis and Related Bone Diseases www osteo.org 2. International Society for Clinical Densitometry www iscd.org 3. National Osteoporosis Foundation www nof.org Electronically Signed: Kev Menendez MD at 15:01 EST , CC: Dr. 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: Signed Normal [facility] SCRN MAMM (CAD)W/EDUAR BILATo n 02-26-2024 SCRN MAMM (CAD)W/EDUAR BILAT [facility] Imaging Services [address], [place] [id number] SCRN MAMM (CAD)W/EDUAR BILAT MR#: [id number] Acct: [id number] Name: GLENYS LOERA Rep #: [id number] : 1955 F 68 From: Kev corea MD PCP: Dr. Rafael Herrera MD Status: REG [facility] Study: SCRN MAMM (CAD)W/EDUAR BILAT Date of Exam: 02/07 12/31 Exam# [id number] Ordering Dr: Rafael Herrera MD [id number] MAMMOGRAPHY - BILATERAL SCREENING REASON FOR EXAM: Female, 68 years old. Routine annual screening examination. PERTINENT HISTORY: Sister with breast cancer. TECHNIQUE: Digital bilateral breast eduar (3D mammographic acquisition) in the CC and MLO projections. 2-D mediolateral oblique (MLO) and craniocaudad (CC) views of both breasts were obtained. CAD: Full Field Digital Mammography with Computer Added Detection was performed. COMPARISON: Comparison is made with prior study dated February 12, 2023 and February 10, 2022. FINDINGS: Breast Composition: There are scattered areas of fibroglandular density. There are no dominant masses or suspicious calcifications. Stable 3.5 mm well-defined nodule in the anterior upper outer aspect of the right breast No other significant abnormalities are identified. There has been no significant change since the prior study. BI/SCRN MAMM (CAD)W/EDUAR BILAT IMPRESSION: Stable bilateral screening mammogram. Yearly follow-up mammogram recommended. (A) ASSESSMENT CATEGORY: BIRADS Category 2: Benign. A letter regarding these results will be sent to the patient by the facility within 30 days. Approximately 10% of breast cancers are not detected by mammography. A normal mammogram should not delay biopsy of a clinically suspicious abnormality. [id number] Electronically Signed: Kev Menendez MD at 8:26 EST Reading Location ID and State: [address] [place] [address] , Service support , CC: Dr. 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: Signed Normal [facility] Spine Cervical (Routine)on 0 11-05-2023 Spine Cervical (Routine) [facility] Imaging Services [address], [place] [address] Spine Cervical (Routine) MR#: [id number] Acct: [id number] Name: EVARISTOGLENYS L Rep #: [id number] : 1955 F 68 From: Waldo owens MD PCP: Dr. Rafael Herrera MD Status: [facility] Study: Spine Cervical (Routine) Date of Exam: Exam# [id number] Ordering Dr: Cecilio Perea MD [id number] STUDY: MRI CERVICAL SPINE WITHOUT CONTRAST REASON FOR EXAM: Female, 68 years old. gait imbalance; neck pain TECHNIQUE: Standardized fat and water weighted pulse sequences were obtained in the sagittal and axial planes. COMPARISON: None FINDINGS: Normal foramen magnum and brainstem-cervical cord junction. Normal craniovertebral junction. Normal anterior atlantoaxial articulation. Normal odontoid process. Normal cervical lordosis. No marrow edema or fracture or compression deformity is present. C2-3: Normal endplates. Diffuse disc desiccation. Normal disc height and morphology. Normal central canal and intervertebral neural foramina. C3-4: Severe disc space narrowing with a diffuse disc osteophyte complex causing compression anterior aspect of the cord and kayy-lv-hovvqzhp central canal stenosis. Severe bilateral foraminal stenosis with nerve root compression due to combined uncovertebral facet joint hypertrophy. C4-5: Diffuse disc desiccation with mild disc space narrowing and posterior annular bulging. Superimposed midline disc protrusion causing compression anterior aspect of the cord and contributing to moderate central canal stenosis. Normal intervertebral neural foramina. Mild to moderate left facet joint hypertrophy. C5-6: Diffuse disc desiccation with moderate disc space narrowing and mild diffuse disc bulging/disc spur complex causing compression anterior aspect of cord and moderate central canal stenosis. Moderate bilateral foraminal stenosis with nerve root compression due to uncovertebral facet joint hypertrophy. Normal central canal and intervertebral neural foramina. C6-7: Moderate disc space narrowing with diffuse disc desiccation and diffuse disc bulge/disc spur complex with compression anterior aspect of cord and moderate central canal stenosis. Moderate bilateral foraminal stenosis with nerve root compression due to uncovertebral hypertrophy. C7-T1: Normal endplates. Diffuse disc desiccation with mild disc space narrowing and slight posterior annular bulging contributing to mass effect on anterior aspect of cord and mild central canal stenosis mild left and moderate right foraminal stenosis with nerve root compression due to uncovertebral hypertrophy. Normal cervical cord. There is no demonstrated cervical cord syrinx cavity. Normal visualized soft tissue structures. MRI/Spine Cervical (Routine) IMPRESSION: 1. Multilevel degenerative changes, as described above. 2. Mild to moderate central canal stenosis at multiple levels 3. Multilevel foraminal stenosis with nerve root compression Electronically Signed: Waldo Weiss MD at 8:56 EDT Reading Location ID and State: [facility] / [place] , Service support , CC: Dr. Rafael Herrera MD; Dr. Cecilio Perea MD Shell Freezing Machine Operator: Signed Normal [facility] Basophil percentageOrdered B y: Cecilio Perea on 06-04-2023 Bilirubin [Mass/Vol] 0.60 mg/dL 0.20-1.00 [facility] Comment on above: For patients on eltr ombopag therapy, use of Dimension [place] TBIL is not recommended. Chloride [Moles/Vol] 115 mmol/L 98-107 [facility] Glucose [Mass/Vol] 92 mg/dL 74-106 [facility] Hemoglobin (Bld) [Mass/Vol] 12.9 g/dL 12.0-15.0 [facility] Potassium [Moles/Vol] 4.2 mmol/L 3.5-5.1 [facility] Protein [Mass/Vol] 7.3 g/dL 6.4-8.2 [facility] Sodium [Moles/Vol] 143 mmol/L 136-145 [facility] WBC (Bld) [#/Vol] 6.8 10*3/uL 4.4-11.0 [facility] Determination of erythrocyte mean corpuscular volume (MCV)Ordered By: Cecilio Perea on 06-04-2023 MCV (RBC) [Entitic vol] 89.6 fL 81-99 [facility] Erythrocyte distribution wid th ratioOrdered By: Cecilio Perea on 06-04-2023 Erythrocyte distribution width (RBC) [Ratio] 13.9 % 11.6-14.6 [facility] Erythrocyte distribution wid th standard deviationOrdered By: Cecilio Perea on 06-04-2023 Erythrocyte distribution width (RBC) [Entitic vol] 45.1 fL 35.1-43.9 [facility] Hematocrit Auto (Bld) [Volum e fraction]Ordered By: Cecilio Perea on 06-04-2023 Hematocrit (Bld) [Volume fraction] 40.4 % 37-47 [facility] Laboratory - Chemistry and C hemistry - challengeOrdered By: Cecilio Perea on 06-04-2023 Albumin/Globulin [Mass ratio] 0.9 {ratio} 0.9-2.4 [facility] ALP [Catalytic activity/Vol] 64 U/L 45-117 [facility] ALT [Catalytic activity/Vol] 16 U/L 13-56 [facility] CO2 [Moles/Vol] 24.0 mmol/L 21.0-32.0 [facility] Cobalamin (Vitamin B12) [Mass/Vol] 251 pg/mL 211-911 [facility] Globulin (S) [Mass/Vol] 3.8 g/dL 2.2-4.2 [facility] Urea nitrogen/Creatinine [Mass ratio] 18.5 mg/mg 10-20 [facility] Laboratory - Hematology and Cell countsOrdered By: Cecilio Perea on 06-04-2023 MCH (RBC) [Entitic mass] 28.6 pg 27.0-32.0 [facility] MCHC (RBC) [Mass/Vol] 31.9 g/dL 32-36 [facility] Platelet mean volume (Bld) [Entitic vol] 10.1 fL 6.2-12.0 [facility] Platelets (Bld) [#/Vol] 276 10*3/uL 150-450 [facility] No Panel InformationOrdered By: Cecilio Perea on 06-04-2023 Estimated GFR (MDRD) Amer 55 mL/min >60 [facility] Comment on above: GFR Calc Estimated GFR (MDRD) Non-Af Amer 45 mL/min >60 [facility] Comment on above: Non- GFR Calc Folate 10.60 ng/mL 3.1-55.4 [facility] Free Lambda Light Chains, Quant 78.1 mg/L 5.7-26.3 [facility] RBC Auto (Bld) [#/Vol]Ordere d By: Cecilio Perea on 06-04-2023 RBC (Bld) [#/Vol] 4.51 10*6/uL 4.2-5.4 [facility] Serum immunoglobulin kappa l ight chains/immunoglobulin lambda light chains mass ratioOrdered By: Cecilio Perea on 06-04-2023 Immunoglobulin light chains.kappa/Immunoglobu chandan light chains.lambda (S) [Mass ratio] 1.17 0.26-1.65 [facility] Serum or plasma calcitriol m easurement (mass/volume)Ordered By: Cecilio Perea on 06-04-2023 1,25-dihydroxyvitamin D3 [Mass/Vol] 24.7 pg/mL 24.8-81.5 [facility] Comment on above: Performed at: [facility] [address] [id number] Director: Juvencio Boone MD, Phone: [phone] Serum or plasma calcium jailyn urement (mass/volume)Ordered By: Cecilio Perea on 06-04-2023 Calcium [Mass/Vol] 10.0 mg/dL 8.5-10.1 [facility] Serum or plasma creatinine m easurement (mass/volume)Ordered By: Cecilio Perea on 06-04-2023 Creatinine [Mass/Vol] 1.24 mg/dL 0.55-1.02 [facility] Comment on above: The validity of the calculated GFR & GFRAA in patients over 70 years has not been determined. Clinical correlation is essential. Serum or plasma immunoglobul in kappa light chains measurement (mass/volume)Ordered By: Cecilio Perea on 06-04-2023 Immunoglobulin light chains.kappa [Mass/Vol] 91.0 mg/L 3.3-19.4 [facility] Serum or plasma thiamine sandy surement (mass/volume)Ordered By: Cecilio Perea on 06-04-2023 Thiamine [Mass/Vol] 100.8 nmol/L 66.5-200.0 [facility] Comment on above: Performed at: [facility] [address] [id number] Director: Jacob Valera PhD, Phone: [phone] at: [facility] [facility] [id number] Director: Juvencio Boone MD, Phone: [phone] Serum or plasma thyroid stim ulating hormone (TSH) measurement (units/volume)Ordered By: Cecilio Perea on 06-04-2023 TSH Qn 2.85 uIU/mL 0.358-3.74 [facility] Serum or plasma urea nitroge n measurement (mass/volume)Ordered By: Cecilio Perea on 06-04-2023 Urea nitrogen [Mass/Vol] 23 mg/dL 7-18 [facility] Thin prep Papanicolaou smear with manual screeningOrdered By: Cecilio Perea on 06-04-2023 Thin prep Papanicolaou smear with manual screening 3.5 g/dL 3.2-5.0 [facility] Thin prep Papanicolaou smear with manual screening 12 U/L 15-37 [facility] Thin prep Papanicolaou smear with manual screening 4 5-15 [facility] Basophil percentageOrdered B y: Rafael Herrera on 12-07-2022 Chloride [Moles/Vol] 109 mmol/L 98-107 [facility] Cholesterol [Mass/Vol] 135 mg/dL <[address] [facility] Comment on above: <200 mg/dL Desirable 200-240 mg/dL Borderline >240 mg/dL High Risk Glucose [Mass/Vol] 86 mg/dL 74-106 [facility] Potassium [Moles/Vol] 4.4 mmol/L 3.5-5.1 [facility] Sodium [Moles/Vol] 140 mmol/L 136-145 [facility] Triglyceride [Mass/Vol] 60 mg/dL <199 [facility] Comment on above: The drugs N-Acetylcy steine and Metamizole may falsely depress this assay.Serum Triglycerides Reference Interval Normal <150 mg/dL Borderline high 150 - 199 mg/dL High 200 - 499 mg/dL Very High > or = 500 mg/dL Laboratory - Chemistry and C hemistry - challengeOrdered By: Rafael Herrera on 12-07-2022 CO2 [Moles/Vol] 25.0 mmol/L 21.0-32.0 [facility] Urea nitrogen/Creatinine [Mass ratio] 14.0 mg/mg 10-20 [facility] No Panel InformationOrdered By: Rafael Herrera on 12-07-2022 Estimated GFR (MDRD) Amer 61 mL/min >60 [facility] Comment on above: GFR Calc Estimated GFR (MDRD) Non-Af Amer 50 mL/min >60 [facility] Comment on above: Non- GFR Calc Vitamin D 25-Hydroxy 58.4 ng/mL [facility] Comment on above: Vitamin D 25(OH) Sta tus Range Deficiency <20 ng/mL (50nmol/L) Insufficiency 20 - 30 ng/mL (50 - 75 nmol/L) Sufficiency 30 - 100 ng/mL (75 - 250 nmol/L) Toxicity >100 ng/mL (>250 nmol/L) Serum or plasma calcium jailyn urement (mass/volume)Ordered By: Rafael Herrera on 12-07-2022 Calcium [Mass/Vol] 9.5 mg/dL 8.5-10.1 [facility] Serum or plasma cholesterol in HDL measurement (mass/volume)Ordered By: Rafael Herrera on 12-07-2022 Cholesterol in HDL [Mass/Vol] 65 mg/dL >40 [facility] Comment on above: The drugs N-Acetylcy steine and Metamizole may falsely depress this assay. Reference Range HDL <40 mg/dL Low HDL Cholesterol HDL >or= 60 mg/dL High HDL Cholesterol Serum or plasma cholesterol in VLDL measurement (mass/volume)Ordered By: Rafael Herrera on 12-07-2022 Cholesterol in VLDL [Mass/Vol] 12 mg/dL 5-40 [facility] Serum or plasma creatinine m easurement (mass/volume)Ordered By: Rafael Herrera on 12-07-2022 Creatinine [Mass/Vol] 1.14 mg/dL 0.55-1.02 [facility] Comment on above: The validity of the calculated GFR & GFRAA in patients over 70 years has not been determined. Clinical correlation is essential. Serum or plasma low density lipoprotein (LDL) cholesterol measurement (mass/volume)Ordered By: Rafael Herrera on 12-07-2022 Cholesterol in LDL [Mass/Vol] 58 mg/dL 0-130 [facility] Serum or plasma urea nitroge n measurement (mass/volume)Ordered By: Rafael Herrera on 12-07-2022 Urea nitrogen [Mass/Vol] 16 mg/dL 7-18 [facility] Thin prep Papanicolaou smear with manual screeningOrdered By: Rafael Herrera on 12-07-2022 Thin prep Papanicolaou smear with manual screening 6 5-15 [facility] No Panel Informationon 09-02 IMPRESSION: No acute osseous abnormality in the right hand and wrist. Diffuse swelling. Shell Free[employer] Machine Operator: TONY Transcribe Date/Time: Sep 02 2022 11:41A Dictated by : SHANA MORGAN MD This examination was interpreted and the report reviewed and electronically signed by: SHANA MORGAN MD on Sep 02 2022 11:49AM EST DIVISION OF RADIOLOGY Radiology Study observation (narrative) [facility] Panel InformationOrdered By: Ccf Provider on 09-02-2022 [facility] XR Hand - right PA and Later al and Obliqueon 09-02-2022 * * *Final Report* * * DATE OF EXAM: Sep 02 2022 10:26AM WOX [id number] - XR HAND 3V PA/LAT/OBL RT / PROCEDURE REASON: Swelling of joint, hand, right * * * * Physician Interpretation * * * * RIGHT WRIST AND HAND RADIOGRAPH: HISTORY: Right hand pain TECHNIQUE: Right wrist radiograph; 3 views.Right hand radiograph; 3 views COMPARISON: None RESULT: No acute fracture, dislocation or suspicious osseous lesion. Mild proximal and distal interphalangeal joint space narrowing reflecting osteoarthritis. Diffuse soft tissue swelling. Suggestion of diffuse osseous demineralization. DIVISION OF RADIOLOGY Provider, [facility] - 09/02/2022 * * *Final Report* * * DATE OF EXAM: Sep 02 2022 10:26AM WOX [id number] - XR HAND 3V PA/LAT/OBL RT / PROCEDURE REASON: Swelling of joint, hand, right * * * * Physician Interpretation * * * * RIGHT WRIST AND HAND RADIOGRAPH: HISTORY: Right hand pain TECHNIQUE: Right wrist radiograph; 3 views.Right hand radiograph; 3 views COMPARISON: None RESULT: No acute fracture, dislocation or suspicious osseous lesion. Mild proximal and distal interphalangeal joint space narrowing reflecting osteoarthritis. Diffuse soft tissue swelling. Suggestion of diffuse osseous demineralization. IMPRESSION IMPRESSION: No acute osseous abnormality in the right hand and wrist. Diffuse swelling. Shell Freezing Machine Operator: TONY Transcribe Date/Time: Sep 02 2022 11:41A Dictated by : SHANA MORGAN MD This examination was interpreted and the report reviewed and electronically signed by: SHANA MORGAN MD on Sep 02 2022 11:49AM EST [facility] XR Wrist - right PA and Late ral and Obliqueon 09-02-2022 * * *Final Report* * * DATE OF EXAM: Sep 02 2022 10:26AM WOX [id number] - XR WRIST 3V PA/LAT/OBL RT / PROCEDURE REASON: Wrist swelling, right * * * * Physician Interpretation * * * * RIGHT WRIST AND HAND RADIOGRAPH: HISTORY: Right hand pain TECHNIQUE: Right wrist radiograph; 3 views.Right hand radiograph; 3 views COMPARISON: None RESULT: No acute fracture, dislocation or suspicious osseous lesion. Mild proximal and distal interphalangeal joint space narrowing reflecting osteoarthritis. Diffuse soft tissue swelling. Suggestion of diffuse osseous demineralization. DIVISION OF RADIOLOGY Provider, [facility] - 09/02/2022 * * *Final Report* * * DATE OF EXAM: Sep 02 2022 10:26AM WOX 5271 - XR WRIST 3V PA/LAT/OBL RT / PROCEDURE REASON: Wrist swelling, right * * * * Physician Interpretation * * * * RIGHT WRIST AND HAND RADIOGRAPH: HISTORY: Right hand pain TECHNIQUE: Right wrist radiograph; 3 views.Right hand radiograph; 3 views COMPARISON: None RESULT: No acute fracture, dislocation or suspicious osseous lesion. Mild proximal and distal interphalangeal joint space narrowing reflecting osteoarthritis. Diffuse soft tissue swelling. Suggestion of diffuse osseous demineralization. IMPRESSION IMPRESSION: No acute osseous abnormality in the right hand and wrist. Diffuse swelling. Shell Freezing Machine Operator: [facility] Transcribe Date/Time: Sep 02 2022 11:41A Dictated by : SHANA MORGAN MD This examination was interpreted and the report reviewed and electronically signed by: SHANA MORGAN MD on Sep 02 2022 11:49AM [facility] Basophil percentageon 2021 Chloride [Moles/Vol] 111 mmol/L 98-[address] [facility] [address] [facility] Work Phone: Glucose [Mass/Vol] 98 mg/dL 74-106 [facility] Work Phone: Potassium [Moles/Vol] 4.3 mmol/L 3.5-5.1 [facility] Work Phone: Sodium [Moles/Vol] 144 mmol/L 136-145 [facility] Work Phone: [phone] Laboratory - Chemistry and C hemistry - challengeon 12-10-2021 CO2 [Moles/Vol] 28.0 mmol/L 21.0-32.0 [facility] Work Phone: Urea nitrogen/Creatinine [Mass ratio] 14.6 mg/mg 10-20 [facility] Work Phone: No Panel Informationon 12-10 Estimated GFR (MDRD) Amer 56 mL/min >60 [facility] Work Phone: Comment on above: GFR Calc Estimated GFR (MDRD) Non-Af Amer 46 mL/min >60 [facility] Work Phone: Comment on above: Non- GFR Calc Vitamin D 25-Hydroxy 54.5 ng/mL [facility] Work Phone: Comment on above: Vitamin D 25(OH) Sta tus Range Deficiency <20 ng/mL (50nmol/L) Insufficiency 20 - 30 ng/mL (50 - 75 nmol/L) Sufficiency 30 - 100 ng/mL (75 - 250 nmol/L) Toxicity >100 ng/mL (>250 nmol/L) Serum or plasma calcium jailyn urement (mass/volume)on 12-10-2021 Calcium [Mass/Vol] 9.6 mg/dL 8.5-10.1 [facility] Work Phone: Serum or plasma creatinine m easurement (mass/volume)on 12-10-2021 Creatinine [Mass/Vol] 1.23 mg/dL 0.55-1.02 [facility] Work Phone: Comment on above: The validity of the calculated GFR & GFRAA in patients over 70 years has not been determined. Clinical correlation is essential. Serum or plasma urea nitroge n measurement (mass/volume)on 12-10-2021 Urea nitrogen [Mass/Vol] 18 mg/dL 7-18 [facility] Work Phone: Thin prep Papanicolaou smear with manual screeningon 12-10-2021 Thin prep Papanicolaou smear with manual screening 5 5-15 [facility] Work Phone: Vital Signs Date Time Vital Sign Value Performing Clinician Facility 10-20-2024 14:04-0400 Body height 165.[address] Rafael Herrera MD Work Phone: [facility] 10-20-2024 14:04-0400 Body mass index (BMI) [Ratio] 29.2 kg/m2 Dr. Rafael Herrera MD Work Phone: [facility] 10-20-2024 14:04-0400 Body temperature 98.2 [degF] Dr. Rafael Herrera MD Work Phone: [facility] 10-20-2024 14:04-0400 Body weight 79.[address] Rafael Herrera MD Work Phone: [facility] 10-20-2024 14:04-0400 Diastolic blood pressure 74 mm[Hg] Dr. Rafael Herrera MD Work Phone: [facility] 10-20-2024 14:04-0400 Heart rate 87 /min Dr. Rafael Herrera MD Work Phone: [facility] 10-20-2024 14:04-0400 Respiratory rate 16 /min Dr. Rafael Herrera MD Work Phone: [facility] 10-20-2024 14:04-0400 SaO2% (BldA) [Mass fraction] 96 % Dr. Rafael Herrera MD Work Phone: [facility] 10-20-2024 14:04-0400 Systolic blood pressure 120 mm[Hg] Dr. Rafael Herrera MD Work Phone: [facility] 07-16-2024 18:09-0400 Body temperature 97.5 [degF] Valente Ellsworth MD Work Phone: [facility] 07-16-2024 18:09-0400 Body weight 79.6 kg Valente Ellsworth MD Work Phone: [facility] 07-16-2024 18:09-0400 Diastolic blood pressure 82 mm[Hg] Valente Ellsworth MD Work Phone: [facility] 04-09-2025 18:09-0400 Heart rate 79 /min Valente Ellsworth MD Work Phone: [facility] 07-16-2024 18:09-0400 Respiratory rate 18 /min Valente Ellsworth MD Work Phone: [facility] 07-16-2024 18:09-0400 SaO2% (BldA) [Mass fraction] 96 % Valente Ellsworth MD Work Phone: [facility] 07-16-2024 18:09-0400 Systolic blood pressure 132 mm[Hg] Valente Ellsworth MD Work Phone: [facility] 06-03-2024 14:02-0500 Body height 165.[address] Rafael Herrera MD Work Phone: [facility] 06-03-2024 14:02-0500 Body mass index (BMI) [Ratio] 29.2 kg/m2 Dr. Rafael Herrera MD Work Phone: [facility] 06-03-2024 14:02-0500 Body temperature 97.8 [degF] Dr. Rafael Herrera MD Work Phone: [facility] 06-03-2024 14:02-0500 Body weight 79.[address] Rafael Herrera MD Work Phone: [facility] 06-03-2024 14:02-0500 Diastolic blood pressure 73 mm[Hg] Dr. Rafael Herrera MD Work Phone: [facility] 06-03-2024 14:02-0500 Heart rate 86 /min Dr. Rafael Herrera MD Work Phone: [facility] 06-03-2024 14:02-0500 Respiratory rate 18 /min Dr. Rafael Herrera MD Work Phone: [facility] 06-03-2024 14:02-0500 SaO2% (BldA) [Mass fraction] 97 % Dr. Rafael Herrera MD Work Phone: [facility] 06-03-2024 14:02-0500 Systolic blood pressure 140 mm[Hg] Dr. Rafael Herrera MD Work Phone: [facility] 05-13-2024 11:35-0500 Body mass index (BMI) [Ratio] 29.1 kg/m2 Dr. Rafael Herrera MD Work Phone: [facility] 05-13-2024 11:35-0500 Body temperature 96.7 [degF] Dr. Rafael Herrera MD Work Phone: [facility] 05-13-2024 11:35-0500 Body weight 79.[address] Rafael Herrera MD Work Phone: [facility] 05-13-2024 11:35-0500 Diastolic blood pressure 77 mm[Hg] Dr. Rafael Herrera MD Work Phone: [facility] 05-13-2024 11:35-0500 Heart rate 79 /min Dr. Rafael Herrera MD Work Phone: [facility] 05-13-2024 11:35-0500 Respiratory rate 16 /min Dr. Rafael Herrera MD Work Phone: [facility] 05-13-2024 11:35-0500 SaO2% (BldA) [Mass fraction] 95 % Dr. Rafael Herrera MD Work Phone: [facility] 05-13-2024 11:35-0500 Systolic blood pressure 118 mm[Hg] Dr. Rafael Herrera MD Work Phone: [facility] 04-27-2024 12:30-0500 Body temperature 98.2 [degF] Raisa Garcia MOTORCYCLE DESIGNER.[employer]OR [employer] DRIVER Work Phone: [facility] 04-27-2024 12:30-0500 Body weight 79.8 kg Raisa Garcia MOTORCYCLE DESIGNER.[employer] DRIVER Work Phone: [facility] 04-27-2024 12:30-0500 Diastolic blood pressure 70 mm[Hg] Raisa Garcia MOTORCYCLE DESIGNER.[employer]OR [employer] DRIVER Work Phone: [facility] 04-27-2024 12:30-0500 Heart rate 89 /min Raisa Garcia MOTORCYCLE DESIGNER.[employer]OR [employer] DRIVER Work Phone: [facility] 04-27-2024 12:30-0500 Respiratory rate 20 /min Raisa Garcia MOTORCYCLE DESIGNER.[employer]OR [employer] DRIVER Work Phone: [facility] 04-27-2024 12:30-0500 SaO2% (BldA) [Mass fraction] 96 % Raisa Garcia MOTORCYCLE DESIGNER.M[employer]OR [employer] DRIVER Work Phone: [facility] 04-27-2024 12:30-0500 Systolic blood pressure 104 mm[Hg] Raisa Garcia MOTORCYCLE DESIGNER.M[employer]OR [employer] DRIVER Work Phone: [facility] 04-21-2024 13:56-0500 Body mass index (BMI) [Ratio] 29.6 kg/m2 Dr. Rafael Herrera MD Work Phone: [facility] 04-21-2024 13:56-0500 Body temperature 97.7 [degF] Dr. Rafael Herrera MD Work Phone: [facility] 04-21-2024 13:56-0500 Body weight 80.[address] Rafael Herrera MD Work Phone: [facility] 04-21-2024 13:56-0500 Diastolic blood pressure 80 mm[Hg] Dr. Rafael Herrera MD Work Phone: [facility] 04-21-2024 13:56-0500 Heart rate 81 /min Dr. Rafael Herrera MD Work Phone: [facility] 04-21-2024 13:56-0500 Respiratory rate 16 /min Dr. Rafael Herrera MD Work Phone: [facility] 04-21-2024 13:56-0500 SaO2% (BldA) [Mass fraction] 97 % Dr. Rafael Herrera MD Work Phone: [facility] 04-21-2024 13:56-0500 Systolic blood pressure 118 mm[Hg] Dr. Rafael Herrera MD Work Phone: [facility] 03-22-2024 10:40-0500 Body temperature 97.5 [degF] Sandra Rojas APRN.[employer]OR [employer] DRIVER Work Phone: [facility] 03-22-2024 10:40-0500 Body weight 80.8 kg Sandra Rojas APRN.[employer]OR [employer] DRIVER Work Phone: [facility] 03-22-2024 10:40-0500 Diastolic blood pressure 84 mm[Hg] Sandra Rojas APRN.[employer] DRIVER Work Phone: [facility] 03-22-2024 10:40-0500 Heart rate 103 /min Sandra Rojas APRN.[employer]IVER Work Phone: [facility] 03-22-2024 10:40-0500 Respiratory rate 18 /min Sandra Rojas APRN.[employer] DRIVER Work Phone: [facility] 03-22-2024 10:40-0500 SaO2% (BldA) [Mass fraction] 97 % Sandra Rojas APRN.[employer]OR [employer] DRIVER Work Phone: [facility] 03-22-2024 10:40-0500 Systolic blood pressure 144 mm[Hg] Sandra Rojas APRN.M[employer]OR [employer] DRIVER Work Phone: [facility] 05-31-2023 22:21-0500 Diastolic blood pressure 86 mm[Hg] Dr. Rafael Herrera Work Phone: [facility] 05-31-2023 22:21-0500 Heart rate 115 /min Dr. Rafael Herrera Work Phone: [facility] 05-31-2023 22:21-0500 Systolic blood pressure 124 mm[Hg] Dr. Rafael Herrera Work Phone: [facility] 05-31-2023 08:49-0500 Body height 165.[address] Rafael Herrera Work Phone: [facility] 05-31-2023 08:49-0500 Body mass index (BMI) [Ratio] 29.7 kg/m2 Dr. Rafael Herrera Work Phone: [facility] 05-31-2023 08:49-0500 Body temperature 97.8 [degF] Dr. Rafael Herrera Work Phone: [facility] 05-31-2023 08:49-0500 Body weight 81.[address] Rafael Herrera Work Phone: [facility] 05-31-2023 08:49-0500 Respiratory rate 17 /min Dr. Rafael Herrera Work Phone: [facility] 05-31-2023 08:49-0500 SaO2% (BldA) [Mass fraction] 96 % Dr. Rafael Herrera Work Phone: [facility] 11-18-2021 11:18-0400 Body temperature 96.49 [degF] Kareem Everette MOTORCYCLE DESIGNER.[employer]OR [employer] DRIVER Work Phone: [facility] 11-18-2021 11:18-0400 Body weight 85.46 kg Kareem Everette MOTORCYCLE DESIGNER.M[employer]OR [employer] DRIVER Work Phone: [facility] 11-18-2021 11:18-0400 Diastolic blood pressure 82 mm[Hg] Kareem Everette MOTORCYCLE DESIGNER.M[employer]OR [employer] DRIVER Work Phone: [facility] 11-18-2021 11:18-0400 Heart rate 79 /min Kareem Everette MOTORCYCLE DESIGNER.M[employer]OR [employer] DRIVER Work Phone: [facility] 11-18-2021 11:18-0400 Respiratory rate 20 /min Kareem Everette MOTORCYCLE DESIGNER.M[employer]OR [employer] DRIVER Work Phone: [facility] 11-18-2021 11:18-0400 SaO2% (BldA) [Mass fraction] 96 % Kareem Everette MOTORCYCLE DESIGNER.M[employer]OR [employer] DRIVER Work Phone: [facility] 11-18-2021 11:18-0400 Systolic blood pressure 122 mm[Hg] Kareem Everette MOTORCYCLE DESIGNER.M[employer]OR [employer] DRIVER Work Phone: [facility] Encounters Encounter Date Encounter Type Care Provider Facility Start: 11-03-2024 ambulatory Rafael Herrera Facility:[facility] Start: 10-20-2024 End: 10-20-[address] Cecilio Perea MD -[facility] Work Phone: Start: 10-20-2024 End: 10-20-[address] Rafael Herrera MD Work Phone: [facility] Start: 07-16-2024 End: 07-16-2024 ambulatory RAFAEL HERRERA Facility:[facility] Start: 07-16-2024 End: 07-16-2024 Office outpatient visit 25 minutes Valente Ellsworth MD Work Phone: [facility] Comment on above: COPD with exacerbati on (HCC) (Primary Dx) Start: 06-03-2024 End: 06-03-[address] Gabe Birmingham MD -[facility] Work Phone: Start: 06-03-2024 End: 06-03-[address] Rafael Herrera MD Work Phone: [facility] Work Phone: Start: 06-03-2024 End: 06-03-2024 ambulatory [facility] Facility:[facility] Start: 05-22-2024 End: 05-22-[address] Gabe Birmingham MD -Radiology, [facility] Work Phone: Start: 05-22-2024 End: 05-22-2024 ambulatory [facility] Facility:[facility] Start: 05-13-[address] Carlos Birmingham MD -[facility] Start: 05-13-2024 End: 05-13-[address] Gabe Birmingham MD -[facility] Work Phone: Start: 05-13-2024 End: 05-13-2024 ambulatory [facility] Facility:[facility] Start: 04-27-2024 End: 04-27-2024 ambulatory RAFAEL HERRERA Facility:[facility] Start: 04-27-2024 End: 04-27-2024 Patient encounter procedure Raisa Garcia APRN.CNP Work Phone: [facility] Comment on above: influenza a (Primary Dx); COPD with exacerbation (HCC); Acute cough Start: 04-21-2024 End: 04-21-[address] Cecilio Perea MD -[facility] Work Phone: Start: 04-21-2024 End: 04-21-2024 ambulatory Rafael Herrera Facility:[facility] Start: 03-22-2024 End: 03-22-2024 Subsequent hospital visit by physician [facility] Work Phone: Radiology Comment on above: Acute cough [R05.1] Start: 03-22-2024 End: 03-22-2024 ambulatory RAFAEL HERRERA Facility:[facility] Start: 03-22-2024 End: 03-22-2024 Patient encounter procedure Sandra Rojas APRN.[facility] Work Phone: [facility] Comment on above: Acute cough (Primary Dx); Respiratory infection Start: 02-26-2024 End: 02-26-[address] Rafael Herrera MD -Outpatient Bone Densitometry Work Phone: Start: 02-26-2024 End: 02-26-2024 ambulatory Rafael Herrera Facility:[facility] Start: 11-05-2023 End: 11-05-2023 ambulatory Rafael Herrera Facility:[facility] Start: 06-18-2023 End: 06-18-[address] Rafael Herrera Work Phone: [facility] Work Phone: Start: 06-18-2023 End: 06-18-[address] Rafael Herrera Work Phone: [facility]-MRI - [facility] Work Phone: Start: 06-11-2023 End: 06-11-[address] Rafael Herrera Work Phone: [facility] Work Phone: Start: 06-11-2023 End: 06-11-[address] Rafael Herrera Work Phone: [facility]-Cat Scan, [facility] Work Phone: Start: 06-04-2023 End: 06-04-[address] Rafael Herrera Work Phone: [facility] Work Phone: Start: 06-04-2023 End: 06-04-[address] Rafael Herrera Work Phone: [facility] Work Phone: Start: 05-31-2023 End: 05-31-[address] Rafael Herrera Work Phone: [facility] Neurology Work Phone: Start: 02-12-2023 End: 02-12-2023 ambulatory [facility] Work Phone: Start: 02-12-2023 End: 02-12-2023 Patient encounter procedure [facility]-Outpatient Breast Imaging Work Phone: Start: 12-14-2022 End: 12-14-2022 ambulatory [facility] Work Phone: Start: 12-14-2022 End: 12-14-2022 Discharged Recurring [facility]-Physical Therapy Work Phone: Start: 12-14-2022 Registered Recurring [facility]-Physical Therapy Work Phone: Start: 12-07-2022 End: 12-07-2022 Patient encounter procedure [facility] Start: 09-02-2022 End: 09-02-2022 Subsequent hospital visit by physician [facility] Work Phone: Radiology Comment on above: Swelling of joint, h and, right [M25.441] Start: 02-10-2022 End: 02-10-2022 ambulatory [facility] Work Phone: Start: 02-10-2022 End: 02-10-2022 Patient encounter procedure [facility]-Outpatient Breast Imaging Start: 12-10-2021 End: 12-10-2021 ambulatory [facility] Work Phone: Start: 12-10-2021 End: 12-10-2021 Patient encounter procedure [facility]-Laboratory Start: 11-18-2021 End: 11-18-2021 Patient encounter procedure Kareem Gaviria APRN.MOTOR BUS DRIVER Work Phone: [facility] Comment on above: URI, acute (Primary Dx); History of COPD; Acute effusion of right ear Procedures Date Procedure Procedure Detail Performing Clinician Start: 06-03-2024 X-ray of chest, PA a nd lateral views Dr. Rafael Herrera MD Work Phone: Start: 05-22-2024 Complete x-ray skele domenica survey Dr. Rafael Herrera MD Work Phone: Start: 04-27-2024 INFLUENZA A&B MOLECU LAR (POC) [facility] Provider Start: 03-22-2024 Radiologic exam ches t 2 views Sandra Rojas APRN.MOTOR BUS DRIVER Work Phone: Start: 02-26-2024 Dual energy X-ray absorptiometry Dr. Rafael Herrera MD Work Phone: Start: 02-26-2024 Screening mammography Suly Herrera MD Work Phone: Start: 06-18-2023 MRI of brain with contrast Dr. Rafael Herrera Work Phone: Start: 06-11-2023 CT angiography of he ad and neck Dr. Rafael Herrera Work Phone: Start: 06-04-2023 X-ray of cervical spine Dr. Rafael Herrera Work Phone: Start: 02-12-2023 Screening mammography Start: 09-02-2022 Radex hand minimum 3 views Rivka Allison APRN.MOTOR BUS DRIVER Work Phone: Start: 02-10-2022 Screening mammography Start: 06-05-2005 Mammography Kareem wheat APRN.MOTOR BUS DRIVER Work Phone: Plan of Treatment Date Care Activity Detail Author Start: 08-06-2028 Urine microalbumin profile DTaP,Tdap,Td Vaccine (3 - Td or Tdap) [facility] Start: 2028 RSV Vaccine (1 - 1-dose 75+ series) RSV Vaccine (1 - 1-dose 75+ series) [facility] Start: 04-27-2024 End: 07-27-2024 INFLUENZA A&B MOLECULAR (POC) INFLUENZA A&B MOLECULAR (POC) Microbiology Routine influenza a Acute cough Expected: 04/27/2024, Expires: 07/27/2024 [facility] Work Phone: Comment on above: Expected: 04/27/2024, Expires: Start: 04-09-2024 Advance Directive Discussion Advance Directive Discussion [facility] Start: 12-09-2023 Covid-19 Vaccine ( season) Covid-19 Vaccine () [facility] Start: 12-09-2023 Covid-19 Vaccine () Covid-19 Vaccine () [facility] Start: 12-09-2023 Influenza vaccination Influenza Vaccine (#1) [facility] Start: 04-09-2023 Advance Directive Discussion Advance Directive Discussion [facility] Start: 12-08-2021 Influenza vaccination INFLUENZA (#1) [facility] Start: 07-11-2021 COVID-19 VACCINE (4 - Booster for Pfizer series) COVID-19 VACCINE (4 - Booster for Pfizer series) [facility] Start: 04-09-2021 ADVANCE DIRECTIVE DISCUSSION ADVANCE DIRECTIVE DISCUSSION [facility] Start: 2018 BONE DENSITY BONE DENSITY [facility] Start: 2018 Screening for osteoporosis Bone Density Screening [facility] Start: 2013 RSV Vaccine (1 - 1-dose 60+ series) RSV Vaccine (1 - 1-dose 60+ series) [facility] Start: 2013 RSV Vaccine (1 - Risk 60-74 years 1-dose series) RSV Vaccine (1 - Risk 60-74 years 1-dose series) [facility] Start: 06-05-2006 Mammography MAMMOGRAM [facility] Start: 06-05-2006 Screening for malignant neoplasm of breast Mammogram Screening [facility] Start: 2003 SHINGRIX VACCINE (1 of 2) SHINGRIX VACCINE (1 of 2) [facility] Start: 1998 COLOGUARD (FIT-DNA) COLOGUARD (FIT-DNA) [facility] Start: 1998 Colonoscopy COLONOSCOPY [facility] Start: 1998 COLORECTAL CANCER SCREENING COLORECTAL CANCER SCREENING [facility] Start: [address] COLONOGRAPHY [facility] Start: 1998 DIABETES SCREEN DIABETES SCREEN [facility] Start: 1998 Diabetes Screening Diabetes Screening [facility] Start: 1998 FECAL OCCULT BLOOD FECAL OCCULT BLOOD [facility] Start: 1998 Lipid panel Lipid Screening [facility] Start: 1998 LIPID SCREEN LIPID SCREEN [facility] Start: 1998 Screening for malignant neoplasm of colon [facility] Start: 1998 SIGMOIDOSCOPY SIGMOIDOSCOPY [facility] Start: 1983 Zoledronic acid therapy Alpha-1 Antitrypsin Deficiency Screening [facility] Start: 1972 Pneumococcal Vaccine: 50+ (1 of 2 - PCV) Pneumococcal Vaccine: 50+ (1 of 2 - PCV) [facility] Start: 1972 Urine microalbumin profile DTAP,TDAP,TD (1 - Tdap) [facility] Start: 1971 Annual PCP Team Chronic Disease Visit Annual PCP Team Chronic Disease Visit [facility] Start: 1971 Anxiety Screening Anxiety Screening [facility] Start: 1971 Depression Screening Depression Screening [facility] Start: 1971 HEPATITIS C SCREENING HEPATITIS C SCREENING [facility] Start: 1971 Hepatitis C screening Hepatitis C Screening [facility] Start: 1971 Spirometry Spirometry [facility] Start: 1965 Adult depression screening assessment DEPRESSION SCREENING [facility] Start: 1959 Pneumococcal Vaccine: 65+ (1 of 2 - PCV) Pneumococcal Vaccine: 65+ (1 of 2 - PCV) [facility] Start: 1959 PNEUMOCOCCAL: 65+ (1 - PCV) PNEUMOCOCCAL: 65+ (1 - PCV) [facility] CBC W Auto Different ial panel - Blood [facility] Comprehensive metabo lic 2000 panel - Serum or Plasma [facility] CTA Head vessels and Neck vessels W contrast IV [facility] Electrocardiographic procedure [facility] MR Brain WO and W contrast IV [facility] Serum immunofixation [facility] Immunizations Immunization Date Immunization Notes Care Provider Leni green 07-19-2015 tetanus toxoid, redu ken diphtheria toxoid, and acellular pertussis vaccine, adsorbed [facility] Payers Date Payer Category Payer Self-pay [id number] 2018 Medicare (Managed Care) [facility] [id number] 2018 Unknown [id number] 2018 Medicare [id number] Unknown [id number] Unknown [id number] Unknown [id number] Unknown [id number] 462 Unknown [id number] 462 Unknown [id number] 462 Unknown [id number] 462 Unknown [id number] 462 Unknown [id number] 462 Unknown [id number] 462 Unknown [id number] 462 Social History Date Type Detail Facility Start: 11-18-2021 End: 03-22-2024 Tobacco smoking status NHIS Smokes tobacco daily [facility] History of tobacco use Cigarette Smoker C [facility] Start: 06-17-2020 End: 11-18-2021 Cigarettes smoked current (pack per day) - Reported 1 [facility] Start: 11-18-2021 End: 03-22-2024 Tobacco use and exposure Smokeless tobacco non-user [facility] Start: 11-18-2021 End: 04-27-2024 Alcohol intake Current drinker of alcohol (finding) [facility] Start: 1955 Sex Assigned At Not on file [facility] Start: 11-08-2021 End: 11-18-2021 Exposure to SARS-CoV-2 (event) Not sure [facility] Work Phone: Start: 07-08-2015 End: 05-31-2023 Tobacco smoking status MOIS Unknown if ever smoked [facility] Start: 1955 Sex Assigned At Female [facility] Start: 06-17-2020 End: 09-02-2022 Tobacco use panel [facility] National Score (1-10 0), lower number is lower risk Not on file [facility] Start: 05-13-2024 Tobacco smoking stat us MOIS Ex-smoker (finding) [facility] Start: 06-16-2024 Sex Female (finding) [facility] Clinical Notes 11-18-2021 to 10-07-2024 Note Date & Type Note Facility 10-07-2024 Evaluation note Diagnosis Onset Date Resolution Abnormal gait acute October 20, 2024 2:00pm Cardiac arrhythmia acute October 072024 2:00pm History of vitamin D deficiency acute October 20, 2024 2:00pm Neck pain acute October 20 2:00pm Polyneuropathy acute October 20, 2024 2:00pm Fatigue noneactive October 20 2:00pm Dizziness noneactive October 20 2:00pm [place] [employer] Work Phone: [phone] NoteHNO ID: [id number] Author: VALENTE ELLSWORTH MD Service: ? Author Type: Physician Type: Progress Notes Filed: 07/16/2024 18:24 Note Text: [facility] Subjective Glenys Loera is a 69 year old female. Patient presents with: Wheezing: Wheezing and SOB x 2 days Patient feels exacerbation of her COPD the last few days. She notices wheezing and chest tightness. She has a cough mostly at night. Her oxygen saturation drops to 89% during the night. She has production with the cough largely after using an albuterol treatment. Denies fever, nasal congestion, rhinorrhea, sore throat. Denies any past history of seasonal allergies triggering COPD. Recent history significant for bronchitis versus pneumonia in March and influenza A in April. Wheezing Review of Systems Respiratory: Positive for wheezing. Objective BP 132/82 Pulse 79 Temp 36.4 ?C (97.5 ?F) (Tympanic) Resp 18 Wt 79.6 kg (175 lb 7.8 oz) SpO2 96% Physical Exam Constitutional: General: She is not in acute distress. HENT: Right Ear: Tympanic membrane and ear canal normal. Left Ear: Tympanic membrane and ear canal normal. Nose: No congestion. Right Sinus: No maxillary sinus tenderness or frontal sinus tenderness. Left Sinus: No maxillary sinus tenderness or frontal sinus tenderness. Mouth/Throat: Mouth: Mucous membranes are moist. Pharynx: No oropharyngeal exudate or posterior oropharyngeal erythema. Eyes: Extraocular Movements: Extraocular movements intact. Conjunctiva/sclera: Conjunctivae normal. Pupils: Pupils are equal, round, and reactive to light. Cardiovascular: Rate and Rhythm: Normal rate and regular rhythm. Heart sounds: No murmur heard. Pulmonary: Effort: No respiratory distress. Breath sounds: Wheezing (Mild inspiratory wheeze left midlung) present. No rhonchi or rales. Musculoskeletal: Cervical back: Neck supple. Lymphadenopathy: Cervical: No cervical adenopathy. Neurological: Mental Status: She is alert. {ASSESSMENT/PLAN: 1. COPD with exacerbation (HCC) - ICD9: 491.21, ICD10: J44.1 - PREDNISONE 20 MG TABLET - reports jitteriness when initiating steroid therapy but is otherwise tolerated. - DOXYCYCLINE MONOHYDRATE 100 MG CAPSULE Follow up with worsening cough, worsening shortness of breath, increasing chest pain, or late onset fever. Valente Ellsworth MD Differential Diagnoses - COPD exacerbation is more likely for the following reason(s): suggested by HANDP - Pneumonia is less likely for the following reason(s): HANDP not suggestive - Congestive heart failure is less likely for the following reason(s): HANDP [facility] of Present illness Narrative* Valente Ellsworth MD - 07/16/2024 6:19 PM EDT [facility] Subjective Glenys Loera is a 69 year old female. Patient presents with: Wheezing: Wheezing and SOB x 2 days Patient feels exacerbation of her COPD the last few days. She notices wheezing and chest tightness.She has a cough mostly at night. Her oxygen saturation drops to 89% during the night. She has production with the cough largely after using an albuterol treatment. Denies fever, nasal congestion, rhinorrhea, sore throat. Denies any past history of seasonal allergies triggering COPD. Recent history s ignificant for bronchitis versus pneumonia in March and influenza A in April. Wheezing Review of Systems Respiratory: Positive for wheezing. Objective BP 132/82 Pulse 79 Temp 36.4 C (97.5 F) (Tympanic) Resp 18 Wt 79.6 kg (175 lb 7.8 oz) SpO2 96% Physical Exam Constitutional: General: She is not in acute distress. HENT: Right Ear: Tympanic membrane and ear canal normal. Left Ear: Tympanic membrane and ear canal normal. Nose: No congestion. Right Sinus: No maxillary sinus tenderness or frontal sinus tenderness. Left Sinus: No maxillary sinus tenderness or frontal sinus tenderness. Mouth/Throat: Mouth: Mucous membranes are moist. Pharynx: No oropharyngeal exudate or posterior oropharyngeal erythema. Eyes: Extraocular Movements: Extraocular movements intact. Conjunctiva/sclera: Conjunctivae normal. Pupils: Pupils are equal, round, and reactive to light. Cardiovascular: Rate and Rhythm: Normal rate and regular rhythm. Heart sounds: No murmur heard. Pulmonary: Effort: No respiratory distress. Breath sounds: Wheezing (Mild inspiratory wheeze left midlung) present. No rhonchi or rales. Musculoskeletal: Cervical back: Neck supple. Lymphadenopathy: Cervical: No cervical adenopathy. Neurological: Mental Status: She is alert. {ASSESSMENT/PLAN: 1. COPD with exacerbation (HCC) - ICD9: 491.21, ICD10: J44.1 - PREDNISONE 20 MG TABLET - reports jitteriness when initiating steroid therapy but is otherwise tolerated. - DOXYCYCLINE MONOHYDRATE 100 MG CAPSULE Follow up with worsening cough, worsening shortness of breath, increasing chest pain, or late onsetfever. Valente Ellsworth MD Differential Diagnoses - COPD exacerbation is more likely for the following reason(s): suggested by H&P - Pneumonia is less likely for the following reason(s): H&P not suggestive - Congestive heart failure is less likely for the following reason(s): H&P not suggestive Procedures [facility] Radiology Diagnostic study note [facility] Imaging Services [address], [place] [address] Chest PA and Lateral MR#: [id number] Acct: [id number] Name: GLENYS LOERA Rep #: [id number] : 1955 F 69 From: Tessa Frankel MD PCP: Dr. Rafael Herrera MD Status: LUIS ANGEL GR[facility] Study:Chest PA and Lateral Date of Exam: 06/03/24 Exam# [id number] Ordering Dr: Gabe Birmingham MD PROCEDURE: CHEST PA AND LATERAL REASON FOR EXAM: Fullness in left suprahilar region on bone films. TECHNIQUE: Frontal and lateral views of the chest. COMPARISON: None. FINDINGS: Status post left shoulder hemiarthroplasty. The heart size is normal. The mediastinal contour is unremarkable. The lungs are clear. No pleural effusion or pneumothorax. Age-related bronchial wall calcifications noted. Multilevel degenerative changes in the thoracic spine. RAD/Chest PA and Lateral IMPRESSION: NO SIGNIFICANT ABNORMALITY IN THE CHEST. NORMAL CARDIOMEDIASTINAL CONTOUR. Reading Location: [id number] CC: Dr. Gabe Birmingham MD; Dr. Rafael Herrera MD ~ Shell Freezing Machine Operator: Signed [facility]01-19-2025 Instructions* Patient Instructions* Tori Raisa, MOTORCYCLE DESIGNER.MOTOR BUS DRIVER - 04/27/2024 12:47 PM EST [facility] PATIENT INFO INFLUENZA INTRODUCTION Influenza (commonly called the flu) is a highly contagious illness that can occur in children or adults of any age. It occurs more often in the winter months because people spend more time in close contact with one another. The flu is spread easily from mcnhtv-xa-kxhpct by coughing, sneezing, or touching surfaces. Every year, complications of the flu require more than 200,000 people in the [place] to be hospitalized. Serious illness is more likely in the very young, older adults, women, and people who have certain health problems such as asthma or other forms of lung disease. There have been several widespread flu outbreaks (called pandemics), which led to the deaths of many people worldwide. These outbreaks occurred when new strains of influenza viruses formed (often from pigs or birds) and humans became infected because they had no immunity to these viruses. FLU SYMPTOMS Symptoms of seasonal flu can vary from person to person, but usually include: Fever (temperature higher than 100 F or 37.8 C) Headache and muscle aches Fatigue Cough and sore throat may also be present People with the flu usually have a fever for two to five days. This is different than fever caused by other upper respiratory viruses, which usually resolve after 24 to 48 hours. Some people have cold-like symptoms (runny nose, sore throat) during the flu while others have fever and muscle aches. Flu symptoms usually improve over two to five days, although the illness may last for a week or more. Weakness and fatigue may persist for several weeks Flu complications -- Complications of influenza occur in some people; pneumonia is the most common complication. Pneumonia is a serious infection of the lungs, and is more likely to occur in people over the age of 65, people who live in header set up operator care facilities (nursing homes), and those with other illnesses such as diabetes or conditions affecting the heart or lungs. FLU DIAGNOSIS Influenza is usually diagnosed based on symptoms (fever, cough and muscle aches). Lab testing for influenza is performed in certain cases, such as during a new influenza outbreak in a community. FLU TREATMENT When to seek help -- Most people with the flu recover within one to two weeks without treatment. However, serious complications of the flu can occur. Call your doctor or nurse immediately if: You feel short of breath or have trouble breathing You have pain or pressure in your chest or stomach You have signs of being dehydrated, such as dizziness when standing or not passing urine You feel confused You cannot stop vomiting or you cannot drink enough fluids There are several groups of people who are at increased risk for flu complications. These include women, young children (<5 years of age, and especially <2 years of age), people >=65 years of age, and people with certain diseases such as chronic lung disease (such as asthma), heart disease, diabetes, immunosuppressing conditions (such as HIV infection or transplantation), and some other diseases. If you or your child has flu symptoms and is at increased risk of flu complications, you should call your healthcare provider. Treat symptoms -- Treating the symptoms of influenza can help you to feel better, but will not makethe flu go away faster. Rest until the flu is fully resolved, especially if the illness has been severe Fluids -- Drink enough fluids so that you do not become dehydrated. One way to housing court judge if you are drinking enough is to look at the color of your urine. Normally, urine should be light yellow to nearlycolorless. If you are drinking enough, you should pass urine every three to five hours. Acetaminophen (such as Tylenol and other brands) can relieve fever, headache, and muscle aches. Aspirin, and medicines that include aspirin (eg, bismuth subsalicylate; PeptoBismol), are not recommended for children under 18 because aspirin can lead to a serious disease called Huy syndrome. Cough medicines are not usually helpful; cough usually resolves without treatment. We do not recommend cough or cold medicine for children under age six years. Antiviral treatment -- Antiviral medicines can be used to treat or prevent influenza. When used as a treatment, the medicine does not eliminate flu symptoms, although it can reduce the severity and duration of symptoms by about one day. Not every person with influenza needs an antiviral medicine; the decision is based upon your risk of developing complications of influenza. Antiviral treatment is most effective for seasonal influenza when it is taken within the first 48 hours of flu symptoms. Side effects -- Zanamivir and oseltamivir can cause mild side effects, including nausea and vomiting; zanamivir, which is inhaled, can cause difficulty breathing in some cases. Most people are able to continue the medicine despite the side effects. Antibiotics -- Antibiotics are NOT useful for treating viral illnesses such as influenza. Antibiotics should only used if there is a bacterial complication of the flu such as bacterial pneumonia, earinfection, or sinusitis. Antibiotics can cause side effects and lead to development of antibiotic resistance. [facility] NoteHNO ID: [id number] Author: RAISA GARCIA APRN.PARISH Service: ? Author Type: Nurse Practitioner Type: Progress Notes Filed: 04/27/2024 13:07 Note Text: This note was created using NoteWriter. Subjective Glenys Loera is a 69 year old female. 69 year old female with PMH COPD presents for illness. Acute onset 2 nights ago +chest congestion +chills +cough +productive +SOB +winded +headache +fever Denies N/V/D Denies body aches Mucinex AND Tylenol for chest congestion +exposure to ill contacts, granddaughter + Influenza A The history is provided by the patient. No specialized language instructor was used. Flu Like Symptoms This is a new problem. The current episode started in the past 7 days. The problem occurs constantly. The problem has been unchanged. Associated symptoms include chills, congestion, coughing, fatigue, a fever, headaches, myalgias and swollen glands. Pertinent negatives include no abdominal pain, anorexia, arthralgias, change in bowel habit, chest pain, diaphoresis, joint swelling, nausea, neck pain, numbness, rash, sore throat, urinary symptoms, vertigo, visual change, vomiting or weakness. Nothing aggravates the symptoms. Treatments tried: see HPI. The treatment provided mild relief. PAST MEDICAL HISTORY Diagnosis Date NONE PAST SURGICAL HISTORY Procedure Laterality Date LAPS ABD PRTMANDOMENTUM DX W/WO SPEC BR/WA SPX Laparoscopy LAPS SURG CHOLECYSTECTOMY W/CHOLANGIOGRAPHY failed IOC PAST SURGICAL HISTORY OF left shoulder-metal pin ALLERGIES Levofloxacin MEDICATIONS meclizine (ANTIVERT) 25 mg tab Take 25 mg by mouth two times a day as needed (dizziness). cholecalciferol, Vitamin D3, (VITAMIN D3) 1,250 mcg (50,000 unit) cap capsule Take 1 capsule by mouth one time a week. albuterol (PROVENTIL) 2.5 mg /3 mL (0.083 %) nebulizer solution budesonide-formoterol (SYMBICORT) 160-4.5 mcg/actuation inhaler Inhale 2 Puffs as instructed twice daily. cetirizine (ZYRTEC) 10 mg tablet Take 10 mg by mouth once daily. Vit A,C,U-Bjdm-Rapcpr (PRESERVISION AREDS) 14,320-226-200 bgyv-qc-rlrp cap Take 1 capsule by mouth once daily. oseltamivir (TAMIFLU) 75 mg capsule Take 1 capsule by mouth two times a day for 5 days. fluticasone (FLONASE) 50 mcg/actuation nasal spray Use 2 Sprays in each nostril once daily. Rinse mouth after use. (Patient not taking: Reported on 03/22/2024) omeprazole(PRILOSEC 20 MG CAP) Take one(1) capsule daily. (Patient not taking: Reported on 11/18/2021) FAMILY HISTORY Problem Relation Age of Onset Diabetes Mother Heart Mother pacemaker other (Other [Other]) Mother depression Hypertension Father Social History Tobacco Use Smoking status: Every Day Current packs/day: 1.00 Average packs/day: 1 pack/day for 15.0 years (15.0 ttl pk-yrs) Types: Cigarettes Smokeless tobacco: Never Substance Use Topics Alcohol use: Yes Comment: occasionally Drug use: No Review of Systems Constitutional: Positive for chills, fatigue and fever. Negative for diaphoresis. HENT: Positive for congestion. Negative for sore throat. Respiratory: Positive for cough. Cardiovascular: Negative for chest pain. Gastrointestinal: Negative for abdominal pain, anorexia, change in bowel habit, nausea and vomiting. Musculoskeletal: Positive for myalgias. Negative for arthralgias, joint swelling and neck pain. Skin: Negative for rash. Neurological: Positive for headaches. Negative for vertigo, weakness and numbness. Objective BP 104/70 Pulse 89 Temp 36.8 ?C (98.2 ?F) Resp 20 Wt 79.8 kg (175 lb 14.8 oz) SpO2 96% Physical Exam Vitals and nursing note reviewed. Constitutional: General: She is not in acute distress. Appearance: Normal appearance. She is normal weight. She is not ill-appearing, toxic-appearing or diaphoretic. HENT: Head: Normocephalic and atraumatic. Right Ear: Ear canal and external ear normal. Left Ear: Ear canal and external ear normal. Nose: Nose normal. No congestion or rhinorrhea. Mouth/Throat: Mouth: Mucous membranes are moist. Pharynx: Posterior oropharyngeal erythema present. No oropharyngeal exudate. Eyes: General: Right eye: No discharge. Left eye: No discharge. Extraocular Movements: Extraocular movements intact. Conjunctiva/sclera: Conjunctivae normal. Pupils: Pupils are equal, round, and reactive to light. Cardiovascular: Rate and Rhythm: Normal rate and regular rhythm. Pulses: Normal pulses. Heart sounds: Normal heart sounds. No murmur heard. No friction rub. Pulmonary: Effort: Pulmonary effort is normal. No respiratory distress. Breath sounds: No stridor. Wheezing and rhonchi present. No rales. Comments: Mid expiratory wheeze and rhonchi noted mid bilateral posterior lobe Chest: Chest wall: No tenderness. Abdominal: General: Abdomen is flat. There is no distension. Palpations: Abdomen is soft. There is no mass. Tenderness: There is no abd (more content not included)...[facility]01-19-2025 History of Present illness Narrative* Raisa Garcia APRN.MOTOR BUS DRIVER - 04/27/2024 12:29 PM EST This note was created using NoteWriter. Subjective Glenys Loera is a 69 year old female. 69 year old female with PMH COPD presents for illness. Acute onset 2 nights ago +chest congestion +chills +cough +productive +SOB +winded +headache +fever Denies N/V/D Denies body aches Mucinex & Tylenol for chest congestion +exposure to ill contacts, granddaughter + Influenza A The history is provided by the patient. No specialized language instructor was used. Flu Like Symptoms This is a new problem. The current episode started in the past 7 days. The problem occurs constantly. The problem has been unchanged. Associated symptoms include chills, congestion, coughing, fatigue, a fever, headaches, myalgias and swollen glands. Pertinent negatives include no abdominal pain, anorexia, arthralgias, change in bowel habit, chest pain, diaphoresis, joint swelling, nausea, neck pain, numbness, rash, sore throat, urinary symptoms, vertigo, visual change, vomiting or weakness. Nothing aggravates the symptoms. Treatments tried: see HPI. The treatment provided mild relief. PAST MEDICAL HISTORY Diagnosis Date NONE PAST SURGICAL HISTORY Procedure Laterality Date LAPS ABD PRTM&OMENTUM DX W/WO SPEC BR/WA SPX Laparoscopy LAPS SURG CHOLECYSTECTOMY W/CHOLANGIOGRAPHY failed IOC PAST SURGICAL HISTORY OF left shoulder-metal pin ALLERGIES Levofloxacin MEDICATIONS meclizine (ANTIVERT) 25 mg tab Take 25 mg by mouth two times a day as needed (dizziness). cholecalciferol, Vitamin D3, (VITAMIN D3) 1,250 mcg (50,000 unit) cap capsule Take 1 capsule by mouth one time a week. albuterol (PROVENTIL) 2.5 mg /3 mL (0.083 %) nebulizer solution budesonide-formoterol (SYMBICORT) 160-4.5 mcg/actuation inhaler Inhale 2 Puffs as instructed twice daily. cetirizine (ZYRTEC) 10 mg tablet Take 10 mg by mouth once daily. Vit A,C,H-Fajz-Ascuvv (PRESERVISION AREDS) 14,320-226-200 pbaz-fz-dvrk cap Take 1 capsule by mouth once daily. oseltamivir (TAMIFLU) 75 mg capsule Take 1 capsule by mouth two times a day for 5 days. fluticasone (FLONASE) 50 mcg/actuation nasal spray Use 2 Sprays in each nostril once daily. Rinse mouth after use. (Patient not taking: Reported on 03/22/2024) omeprazole(PRILOSEC 20 MG CAP) Take one(1) capsule daily. (Patient not taking: Reported on 11/18/2021) FAMILY HISTORY Problem Relation Age of Onset Diabetes Mother Heart Mother pacemaker other (Other [Other]) Mother depression Hypertension Father Social History Tobacco Use Smoking status: Every Day Current packs/day: 1.00 Average packs/day: 1 pack/day for 15.0 years (15.0 ttl pk-yrs) Types: Cigarettes Smokeless tobacco: Never Substance Use Topics Alcohol use: Yes Comment: occasionally Drug use: No Review of Systems Constitutional: Positive for chills, fatigue and fever. Negative for diaphoresis. HENT: Positive for congestion. Negative for sore throat. Respiratory: Positive for cough. Cardiovascular: Negative for chest pain. Gastrointestinal: Negative for abdominal pain, anorexia, change in bowel habit, nausea and vomiting. Musculoskeletal: Positive for myalgias. Negative for arthralgias, joint swelling and neck pain. Skin: Negative for rash. Neurological: Positive for headaches. Negative for vertigo, weakness and numbness. Objective BP 104/70 Pulse 89 Temp 36.8 C (98.2 F) Resp 20 Wt 79.8 kg (175 lb 14.8 oz) SpO2 96% Physical Exam Vitals and nursing note reviewed. Constitutional: General: She is not in acute distress. Appearance: Normal appearance. She is normal weight. She is not ill-appearing, toxic-appearing or diaphoretic. HENT: Head: Normocephalic and atraumatic. Right Ear: Ear canal and external ear normal. Left Ear: Ear canal and external ear normal. Nose: Nose normal. No congestion or rhinorrhea. Mouth/Throat: Mouth: Mucous membranes are moist. Pharynx: Posterior oropharyngeal erythema present. No oropharyngeal exudate. Eyes: General: Right eye: No discharge. Left eye: No discharge. Extraocular Movements: Extraocular movements intact. Conjunctiva/sclera: Conjunctivae normal. Pupils: Pupils are equal, round, and reactive to light. Cardiovascular: Rate and Rhythm: Normal rate and regular rhythm. Pulses: Normal pulses. Heart sounds: Normal heart sounds. No murmur heard. No friction rub. Pulmonary: Effort: Pulmonary effort is normal. No respiratory distress. Breath sounds: No stridor. Wheezing and rhonchi present. No rales. Comments: Mid expiratory wheeze and rhonchi noted mid bilateral posterior lobe Chest: Chest wall: No tenderness. Abdominal: General: Abdomen is flat. There is no distension. Palpations: Abdomen is soft. There is no mass. Tenderness: There is no abdominal tenderness. There is no right CVA tenderness, left CVA tenderness, guarding or rebound. Hernia: No hernia is present. Musculoskeletal: General: No swelling, tenderness, deformity or signs of injury. Normal range of motion. Cervical back: Normal range of motion and neck supple. No rigidity. Right lower leg: No edema. Left lower leg: No edema. Lymphadenopathy: Cervical: Cervical adenopathy present. Skin: General: Skin is warm and dry. Capillary Refill: Capillary refill takes less than 2 seconds. Coloration: Skin is not jaundiced or pale. Findings: No bruising, erythema, lesion or rash. Neurological: General: No focal deficit present. Mental Status: She is alert and oriented to person, place, and time. Cranial Nerves: No cranial nerve deficit. Sensory: No sensory deficit. Motor: No weakness. Coordination: Coordination normal. Gait: Gait normal. Psychiatric: Mood and Affect: Mood normal. Behavior: Behavior normal. Thought Content: Thought content normal. Judgment: Judgment normal. Assessment and Plan ASSESSMENT/PLAN: 1. influenza a - ICD9: V01.79, ICD10: Z20.828 (primary diagnosis) + exposure at home Sx Started Sunday night + INFLUENZA A Patient wants Tamiflu - INFLUENZA A&B MOLECULAR (POC) 2. COPD with exacerbation (HCC) - ICD9: 491.21, ICD10: J44.1 Being driven by viral /flu Utilize medicines as prescribed Albuterol inhaler Discussed red flags 3. Acute cough - ICD9: 786.2, ICD10: R05.1 Supportive Humidified air Lungs CTA No xray, will return for CXR if sx persist - INFLUENZA A&B MOLECULAR (POC) Raisa Garcia APRN.MOTOR BUS DRIVER [facility] Evaluation note* Diagnosis Onset Date Resolution Status Admit Date Abnormal gait acute April 1:56pm History of vitamin D deficiency acute April 21 1:56pm Neck pain acute April 21, 2024 1:56pm Polyneuropathy acute April 212024 1:56pm Fatigue noneactive April 21, 2024 1:56pm Dizziness noneactive April 21, 2024 1:56pm Monoclonal gammopathy chronic Feb ruary 2024 11:21am Monoclonal gammopathy chronic Feb ruary 2024 1:52pm [facility] Work Phone: [phone] 162-122712-14-2024 History of Present illness Narrative* Leonor Reynoso RT(R) - 03/22/2024 11:10 AM EST Radiology Service Progress Note PATIENT NAME: Glenys Loera DATE OF SERVICE: March 22, 2024 TIME: 11:08 AM PATIENT IDENTITY VERIFICATION COMPLETED USING TWO (2) IDENTIFIERS: Name and Date of confirmedby patient verbally. FALL SCREENING: Has the patient had 2 falls in the last year or 1 fall with injury or currently using an Ambulatory Assistive Device (Walker, Cane, Wheelchair, Crutches, etc.)? No PATIENT GENDER DATA: Female. status: : No status: NO. PATIENT RELEVANT IMPLANT DATA REVIEWED: Yes PATIENT PRESENTS WITH AN IMPLANTABLE OR ATTACHED SUPERINTENDENT SEED MILL: No RADIOLOGY DEPARTMENT: General X-ray: Exam(s) Completed: Chest X-Ray PERIPHERAL IV DATA: Not applicable SIGNED BY: BELÉN Ochoa) March 22, 2024 11:08 AM documented in this encounterMed[facility]12-14-[facility]24 NoteHNO ID: [id number] Author: LEONOR REYNOSO RT (R) Service: ? Author Type: Copying Machine Repairer Type: Progress Notes Filed: 03/22/2024 11:17 Note Text: Radiology Service Progress Note PATIENT NAME: Glenys Loera DATE OF SERVICE: March 22, 2024 TIME: 11:08 AM PATIENT IDENTITY VERIFICATION COMPLETED USING TWO (2) IDENTIFIERS: Name and Date of confirmed by patient verbally. FALL SCREENING: Has the patient had 2 falls in the last year or 1 fall with injury or currently using an Ambulatory Assistive Device (Walker, Cane, Wheelchair, Crutches, etc.)? No PATIENT GENDER DATA: Female. status: : No status: NO. PATIENT RELEVANT IMPLANT DATA REVIEWED: Yes PATIENT PRESENTS WITH AN IMPLANTABLE OR ATTACHED SUPERINTENDENT SEED MILL: No RADIOLOGY DEPARTMENT: General X-ray: Exam(s) Completed: Chest X-Ray PERIPHERAL IV DATA: Not applicable SIGNED BY: BELÉN Ochoa) March 22, 2024 11:08 [facility]12-14-2024 NoteHNO ID: [id number] Author: SANDRA ROAJS APRN.MOTOR BUS DRIVER Service: ? Author Type: Nurse Practitioner Type: Progress Notes Filed: 03/22/2024 11:44 Note Text: CC: Patient presents with: Cough: Cough, chest congestion, left side hurts and wheezy x 1 day HPI: Glenys Loera is a 68 year old female who presents to the office with complaint of chest congestion, head congestion, and cough, productive for the past day. Symptoms are worsening Associated symptoms includes wheezing. Denies nausea, vomiting , and diarrhea. Treatments tried include nothing so far. with no relief of symptoms. Sick contacts: unknown. History of asthma, frequent episodes of bronchitis, chronic bronchitis, bronchiectasis or COPD: No Smoker: No Seasonal/environmental allergies: No The ROS is otherwise negative. The patient's pmh, medications, allergies, and past visits are reviewed. PHYSICAL EXAM: BP 144/84 Pulse 103 Temp 36.4 ?C (97.5 ?F) (Tympanic) Resp 18 Wt 80.8 kg (178 lb 2.1 oz) SpO2 97% General appearance: alert, cooperative, pleasant, in no acute distress Head: Normocephalic Eyes: EOM's intact, conjunctiva pink and moist, no icterus, sclera white, non-injected Ears: Right ear: External ear/canal- Normal, TM - clear with good landmarks. Left ear: External ear/canal- Normal, TM - clear with good landmarks Oropharynx:moist without lesions, No erythema, exudates or tonsillar hypertrophy. Heart: Negative. RRR without obvious murmur, gallop, or rubs. No ectopy. Lungs: wheezing diffusely PAST MEDICAL HISTORY Diagnosis Date NONE PAST SURGICAL HISTORY Procedure Laterality Date LAPS ABD PRTMANDOMENTUM DX W/WO SPEC BR/WA SPX Laparoscopy LAPS SURG CHOLECYSTECTOMY W/CHOLANGIOGRAPHY failed IOC PAST SURGICAL HISTORY OF left shoulder-metal pin ALLERGIES Levofloxacin MEDICATIONS cholecalciferol, Vitamin D3, (VITAMIN D3) 1,250 mcg (50,000 unit) cap capsule Take 1 capsule by mouth one time a week. albuterol (PROVENTIL) 2.5 mg /3 mL (0.083 %) nebulizer solution budesonide-formoterol (SYMBICORT) 160-4.5 mcg/actuation inhaler Inhale 2 Puffs as instructed twice daily. cetirizine (ZYRTEC) 10 mg tablet Take 10 mg by mouth once daily. Vit A,C,C-Lefz-Sjehde (PRESERVISION AREDS) 14,320-226-200 ojuw-qo-wcbn cap Take 1 capsule by mouth once daily. fluticasone (FLONASE) 50 mcg/actuation nasal spray Use 2 Sprays in each nostril once daily. Rinse mouth after use. (Patient not taking: Reported on 03/22/2024) omeprazole(PRILOSEC 20 MG CAP) Take one(1) capsule daily. (Patient not taking: Reported on 11/18/2021) FAMILY HISTORY Problem Relation Age of Onset Diabetes Mother Heart Mother pacemaker other (Other [Other]) Mother depression Hypertension Father Social History Tobacco Use Smoking status: Every Day Current packs/day: 1.00 Average packs/day: 1 pack/day for 15.0 years (15.0 ttl pk-yrs) Types: Cigarettes Smokeless tobacco: Never Substance Use Topics Alcohol use: Yes Comment: occasionally Drug use: No ASSESSMENT/PLAN: 1. Acute cough - ICD9: 786.2, ICD10: R05.1 (primary diagnosis) - XR CHEST 2V FRONTAL/LAT * * * * Physician Interpretation * * * * EXAMINATION: CHEST RADIOGRAPH (2 VIEW FRONTAL AND LATERAL) CLINICAL HISTORY: Acute cough MQ: XC2_6 EXAM DATE/TIME: 03/22/2024 11:18 AM COMPARISON: No relevant prior studies available. RESULT: Lines, tubes, and devices: None. Lungs and pleura: * Question of some LEFT basilar atelectasis or infiltrate. * Some peribronchial wall thickening is noted bilaterally in the hilar regions No other consolidation. No lung mass. No pleural effusion. No pneumothorax. Cardiomediastinal silhouette: Normal cardiomediastinal silhouette. Bones and soft tissues: Unremarkable. IMPRESSION IMPRESSION: Findings as discussed under Results portion of report. . Shell Freezing Machine Operator: TONY Transcribe Date/Time: Mar 22 2024 11:32A Dictated by : PRECIOUS MURPHY DO 2. Respiratory infection - ICD9: 519.8, ICD10: J98.8 - DOXYCYCLINE HYCLATE 100 MG TABLET Prescription instructions reviewed with patient as applicable. Potential red flag symptoms discussed with the patient. Reviewed appropriate action plan to take if red flag symptoms occur. Patient agreeable to treatment plan. Sandra Rojas APRN.[facility]12-14-2024 History of Present illness Narrative* Sandra Rojas APRN.PARISH - 03/22/2024 10:38 AM EST CC: Patient presents with: Cough: Cough, chest congestion, left side hurts and wheezy x 1 day HPI: Glenys Loera is a 68 year old female who presents to the office with complaint of chest congestion, head congestion, and cough, productive for the past day. Symptoms are worsening Associated symptoms includes wheezing. Denies nausea, vomiting , and diarrhea. Treatments tried include nothing so far. with no relief of symptoms. Sick contacts: unknown. History of asthma, frequent episodes of bronchitis, chronic bronchitis, bronchiectasis or COPD: No Smoker: No Seasonal/environmental allergies: No The ROS is otherwise negative. The patient's pmh, medications, allergies, and past visits are reviewed. PHYSICAL EXAM: BP 144/84 Pulse 103 Temp 36.4 C (97.5 F) (Tympanic) Resp 18 Wt 80.8 kg (178 lb 2.1 oz) SpO2 97% General appearance: alert, cooperative, pleasant, in no acute distress Head: Normocephalic Eyes: EOM's intact, conjunctiva pink and moist, no icterus, sclera white, non-injected Ears: Right ear: External ear/canal- Normal, TM - clear with good landmarks. Left ear: External ear/canal- Normal, TM - clear with good landmarks Oropharynx:moist without lesions, No erythema, exudates or tonsillar hypertrophy. Heart: Negative. RRR without obvious murmur, gallop, or rubs. No ectopy. Lungs: wheezing diffusely PAST MEDICAL HISTORY Diagnosis Date NONE PAST SURGICAL HISTORY Procedure Laterality Date LAPS ABD PRTM&OMENTUM DX W/WO SPEC BR/WA SPX Laparoscopy LAPS SURG CHOLECYSTECTOMY W/CHOLANGIOGRAPHY failed IOC PAST SURGICAL HISTORY OF left shoulder-metal pin ALLERGIES Levofloxacin MEDICATIONS cholecalciferol, Vitamin D3, (VITAMIN D3) 1,250 mcg (50,000 unit) cap capsule Take 1 capsule by mouth one time a week. albuterol (PROVENTIL) 2.5 mg /3 mL (0.083 %) nebulizer solution budesonide-formoterol (SYMBICORT) 160-4.5 mcg/actuation inhaler Inhale 2 Puffs as instructed twice daily. cetirizine (ZYRTEC) 10 mg tablet Take 10 mg by mouth once daily. Vit A,C,F-Mgnr-Uwmruo (PRESERVISION AREDS) 14,320-226-200 ntrh-gp-emvr cap Take 1 capsule by mouth once daily. fluticasone (FLONASE) 50 mcg/actuation nasal spray Use 2 Sprays in each nostril once daily. Rinse mouth after use. (Patient not taking: Reported on 03/22/2024) omeprazole(PRILOSEC 20 MG CAP) Take one(1) capsule daily. (Patient not taking: Reported on 11/18/2021) FAMILY HISTORY Problem Relation Age of Onset Diabetes Mother Heart Mother pacemaker other (Other [Other]) Mother depression Hypertension Father Social History Tobacco Use Smoking status: Every Day Current packs/day: 1.00 Average packs/day: 1 pack/day for 15.0 years (15.0 ttl pk-yrs) Types: Cigarettes Smokeless tobacco: Never Substance Use Topics Alcohol use: Yes Comment: occasionally Drug use: No ASSESSMENT/PLAN: 1. Acute cough - ICD9: 786.2, ICD10: R05.1 (primary diagnosis) - XR CHEST 2V FRONTAL/LAT * * * * Physician Interpretation * * * * EXAMINATION: CHEST RADIOGRAPH (2 VIEW FRONTAL & LATERAL) CLINICAL HISTORY: Acute cough MQ: XC2_6 EXAM DATE/TIME: 03/22/2024 11:18 AM COMPARISON: No relevant prior studies available. RESULT: Lines, tubes, and devices: None. Lungs and pleura: * Question of some LEFT basilar atelectasis or infiltrate. * Some peribronchial wall thickening is noted bilaterally in the hilar regions No other consolidation. No lung mass. No pleural effusion. No pneumothorax. Cardiomediastinal silhouette: Normal cardiomediastinal silhouette. Bones and soft tissues: Unremarkable. IMPRESSION IMPRESSION: Findings as discussed under Results portion of report. . Shell Freezing Machine Operator: TONY Transcribe Date/Time: Mar 22 2024 11:32A Dictated by : PRECIOUS LARRICK, DO 2. Respiratory infection - ICD9: 519.8, ICD10: J98.8 - DOXYCYCLINE HYCLATE 100 MG TABLET Prescription instructions reviewed with patient as applicable. Potential red flag symptoms discussed with the patient. Reviewed appropriate action plan to take if red flag symptoms occur. Patient agreeable to treatment plan. Sandra Rojas APRN.MOTOR BUS DRIVER documented in this encounter[facility]05-27-2023 History of Present illness Narrative* Samara Deleon RT(R) - 09/02/2022 10:20 AM EDT Radiology Service Progress Note PATIENT NAME: Glenys Loera DATE OF SERVICE: September 02, 2022 TIME: 10:14 AM PATIENT IDENTITY VERIFICATION COMPLETED USING TWO (2) IDENTIFIERS: Name and Date of confirmedby patient verbally. FALL SCREENING: Has the patient had 2 falls in the last year or 1 fall with injury or currently using an Ambulatory Assistive Device (Walker, Cane, Wheelchair, Crutches, etc.)? No PATIENT GENDER DATA: Female. status: : No status: NO. PATIENT RELEVANT IMPLANT DATA REVIEWED: Yes RADIOLOGY DEPARTMENT: General X-ray: Exam(s) Completed: Upper Extremity X- Ray(s): Wrist, right and Hand, right PERIPHERAL IV DATA: Not applicable SIGNED BY: RT Amie(R) September 02, 2022 10:14 AM documented in this encounterMedina Hospital08-12-2022 History of Present illness Narrative* Kareem Gaviria APRN.MOTOR BUS DRIVER - 11/18/2021 11:42 AM EDT Subjective HPI HPI Glenys Loera is a 66 year old female who [...] 10 mg by mouth once daily. Vit A,C,P-Skwo-Jloiby (PRESERVISION AREDS) 14,320-226-200 uckf-ca-gwcl cap Take 1 capsule by mouth once [...] NASAL SPRAY,SUSPENSION Agrees to plan Kareem Gaviria APRN.MOTOR BUS DRIVER [facility]* Diagnosis URI, acute- Primary Acute upper respiratory infections of unspecified site History of COPD Personal history of other diseases of respiratory system Acute effusion of right ear documented in this encounter [facility] noteNo assessment information availableWWright-[facility] Work Phone: Evaluation note* Diagnosis Onset Date Resolution Status History of vitamin D deficiency acute Neck pain acute Polyneuropathy acute Dizziness noneactive [facility] Work Phone: Evaluation note* Diagnosis Swelling of joint, hand, right Effusion of hand joint Wrist swelling, right documented in this encounter [facility] note* Diagnosis Acute cough- Primary Respiratory infection Other diseases of respiratory system, not elsewhere classified Acute cough documented in this encounter [facility] note* Diagnosis Acute cough documented in this encounter [facility] note* Diagnosis influenza a- Primary Contact with or exposure to other viral diseases COPD with exacerbation (HCC) Obstructive chronic bronchitis with exacerbation Acute cough documented in this encounter [facility] note* Diagnosis COPD with exacerbation (HCC)- Primary Obstructive chronic bronchitis with exacerbation documented in this encounter [facility] for referral (narrative)* Diagnostic Procedure Only (Urgent) - Closed Specialty Diagnoses / Procedures Referred By Blue franks Referred To Contact XR IMAGING Diagnoses Wrist swelling, right Procedures XR WRIST GENERAL 3V PA/LAT/OBL RIGHT RADEX WRIST COMPLETE MINIMUM 3 VIEWS Rivka Allison APRN.MOTOR BUS DRIVER [address] [place] [address] [place] [address] Referral ID Status Reason Start Date Expiration Date V isits Requested Visits Authorized [id number] Closed Auto-Generate d Referral 09/02/2022 10/02/2023 1 1 * Diagnostic Procedure Only (Urgent) - Closed Specialty Diagnoses / Procedures Referred By Contac t Referred To Contact XR IMAGING Diagnoses Swelling of joint, hand, right Procedures XR HAND GENERAL 3V PA/LAT/OBL RIGHT RADEX HAND MINIMUM 3 VIEWS Rivka Allison APRN.MOTOR BUS DRIVER [address] [place] [address] [place] [address] Referral ID Status Reason Start Date Expiration Date V isits Requested Visits Authorized [id number] Closed Auto-Generate d Referral 09/02/2022 10/02/2023 1 1 [facility] ([facility]ative)No reason for referral information availableWWright-[facility] Work Phone: Reason for visit Narrative* Diagnostic Procedure Only (Urgent) - Closed Specialty Diagnoses / Procedures Referred By Contac t Referred To Contact XR IMAGING Diagnoses Wrist swelling, right Procedures XR WRIST GENERAL 3V PA/LAT/OBL RIGHT RADEX WRIST COMPLETE MINIMUM 3 VIEWS Rivka Allison APRN.[employer] [address] [place] [address] [place] [address] Referral ID Status Reason Start Date Expiration Date V isits Requested Visits Authorized [id number] Closed Auto-Generate d Referral 09/02/2022 10/02/2023 1 1 [facility] Advance Directives No Advanced Directives Records Found Advance Directive Response Recorded Date/ Time Advance Directives Yes August 19 5 2:54pm Living Will Yes July 08, 2015 9:40pm Power of Director Special Education Yes July 07 9:40pm Advance Directive Response Recorded Date/ Time Advance Directives Yes August 19 5 1:54pm Living Will Yes July 08, 2015 8:40pm Power of Director Special Education Yes July 07 8:40pm Advance Directive Response Recorded Date/ Time Living Will Yes July 08, 2015 9:40pm Power of Director Special Education Yes July 07 9:40pm Advance Directives Yes August 19 5 2:54pm Advance Directive Response Recorded Date/ Time Advance Directives Yes August 19 2:54pm Chief Complaint and Reason for Visit Chief Complaint SCREENING Chief Complaint DIZZINESS RX HERE SCREENING Chief Complaint SCREENING Dizziness (cardiology) EORDER Reason for Visit History of vitamin D deficiency Neck pain Polyneuropathy Dizziness Chief Complaint Dizziness (cardiolog y) EORDER DIZZINESS Reason for Visit History of vitamin D deficiency Neck pain Polyneuropathy Dizziness Chief Complaint Dizziness (cardiolog y) EORDER DIZZINESS CHR NONPOSITIONAL DYSEQUILIBRIUM; ATTN POST FOSSA Reason for Visit History of vitamin D deficiency Neck pain Polyneuropathy Dizziness Chief Complaint Admit Date SCREENING February 26, 2024 3:55pm 6 M FU April 21, 2024 1 :56pm MONOCLONAL GAMMOPATHY May 13, 2024 11:21am 6 MO - LABS 1 WK PRIOR May 13 12:02pm Monoclonal gammopathy May 22 12:54pm REVIEW BONE SCAN June 03, 2024 1:52pm CHEST X-RAY June 03, 2024 2:46pm Reason for Visit Admit Date Abnormal gait April 21, 2024 1 :56pm History of vitamin D deficiency April 21, 2024 1:56pm Neck pain April 21, 2024 1 :56pm Polyneuropathy April 21, 2024 1 :56pm Fatigue April 21, 2024 1 :56pm Dizziness April 21, 2024 1 :56pm Monoclonal gammopathy May 13, 2024 11:21am Monoclonal gammopathy June 03 1:52pm Chief Complaint Admit Date 6 M FU October 20, 2024 2:00 pm Reason for Visit Admit Date Abnormal gait October 20, 2024 2:00 pm Cardiac arrhythmia October 20, 2024 2:00 pm History of vitamin D deficiency October 2:00pm Neck pain October 20, 2024 2:00 pm Polyneuropathy October 20, 2024 2:00 pm Fatigue October 20, 2024 2:00 pm Dizziness October 20, 2024 2:00 pm Family History No Family History Records Found Relationship Condition Age at Onset Recorded Date/T herberth mother Diabetes mellitus Unknown Cardiac disease Unknown father Hypertension Unknown brother Malignant neoplasm Unknown sister Malignant neoplasm of breast Unknown Summary Purpose Additional Source Comments Source Comments (unrecognize d section and content) In the event this informatio n is protected by the Federal Confidentiality of Alcohol and Drug Abuse Patient Records regulations: The Federal rules restrict any use of the information to criminally investigate or prosecute any alcohol or drug abuse patient.[facility] the event this information is protected by the Federal Confidentiality of Alcohol and Drug Abuse Patient Records regulations: The Federal rules restrict any use of the information to criminally investigate or prosecute any alcohol or drug abuse patient.[facility] the event this information is protected by the Federal Confidentiality of Alcohol and Drug Abuse Patient Records regulations: The Federal rules restrict any use of the information to criminally investigate or prosecute any alcohol or drug abuse patient.[facility] the event this information is protected by the Federal Confidentiality of Alcohol and Drug Abuse Patient Records regulations: The Federal rules restrict any use of the information to criminally investigate or prosecute any alcohol or drug abuse patient.[facility] the event this information is protected by the Federal Confidentiality of Alcohol and Drug Abuse Patient Records regulations: The Federal rules restrict any use of the information to criminally investigate or prosecute any alcohol or drug abuse patient.[facility] the event this information is protected by the Federal Confidentiality of Alcohol and Drug Abuse Patient Records regulations: The Federal rules restrict any use of the information to criminally investigate or prosecute any alcohol or drug abuse patient.[facility] Reason for Visit (unrecogniz ed section and content) Reason Comments Nasal Congestion R ear pain, sinus pa in and pressure, LAUREANO, cough x4 days Reason Comments Cough Cough, chest congest ion, left side hurts and wheezy x 1 day Reason Comments Chest Congestion Chills, headache, fe tamica, body aches, x 2 days Reason Comments Wheezing Wheezing and SOB x 2 days Care Teams (unrecognized sec tion and content) Associate Dean Relationship Specialty Start Date End Date Rafael Herrera MD [address] [place] [address] PCP - General Family Practice 11/18/21 Team Status: Active Member Role Status Dates Dr. Rafael Herrera MD Family Provider Active Dr. Rafael Herrera MD Primary Care Provider Active Team Status: Inactive Member Role Status Dates Dr. Rafael Herrera MD Primary Care Provi wilfrid, Attending Provider, Referring Provider Active Team Status: Active Member Role Status Dates Dr. Rafael Herrera MD Primary Care Provi wilfrid, Attending Provider, Referring Provider Active Team Status: Inactive Member Role Status Dates Dr. Rafael Herrera MD Primary Care Provider, Attending Provider Active Team Status: Inactive Member Role Status Dates Dr. Rafael Herrera MD Primary Care Provider, Referring Provider Active Dr. Cecilio Perea MD Attending Provider Active Team Status: Inactive Member Role Status Dates Dr. Rafael Herrera MD Primary Care Provider Active Dr. Cecilio Preea MD Attending Provider, Referring Provider Active Associate Dean Relationship Specialty Start Date End Date Rafael Herrera MD [address] [facility] [address] [place] [address] PCP - General Family Medicine 11/18/21 Associate Dean Relationship Specialty Start Date End Date Rafael Herrera MD [address] [facility] [address] [place] [address] PCP - General Family Medicine 11/18/21 Associate Dean Relationship Specialty Start Date End Date Rafael Herrera MD [address] [facility] [address] [place], [place] [id number] PCP - [facility] Medicine 11/18/21 Team Status: Active Member Role Status Dates Dr. Rafael Herrera MD Primary Care Provider Active Team Status: Inactive Member Role Status Dates Dr. Rafael Herrera MD Primary Care Provider Active Start: February 26, 2024 End: February 26, 2024 Dr. Rafael Herrera MD Attending Provider Active Start: February 26, 2024 End: February 26, 2024 Dr. Rafael Herrera MD Referring Provider Active Start: February 26, 2024 End: February 26, 2024 Team Status: Inactive Member Role Status Dates Dr. Rafael Herrera MD Primary Care Provider Active Start: April 21, 2024 End: April 21, 2024 Dr. Rafael Herrera MD Referring Provider Active Start: April 21, 2024 End: April 21, 2024 Dr. Cecilio Perea MD Attending Provider Active Start: April 21, 2024 End: April 21, 2024 Team Status: Inactive Member Role Status Dates Dr. Rafael Herrera MD Primary Care Provider Active Start: May 13, 2024 End: May 13, 2024 Dr. Gabe Birmingham MD Attending Provider Active Start: May 13, 2024 End: May 13, 2024 Dr. Cecilio Perea MD Referring Provider Active Start: May 13, 2024 End: May 13, 2024 Team Status: Active Member Role Status Dates Dr. Rafael Herrera MD Primary Care Provider Active Start: May 13, 2024 Dr. Gabe Birmingham MD Attending Provider Active Start: May 13, 2024 Dr. Gabe Birmingham MD Referring Provider Active Start: May 13, 2024 Team Status: Inactive Member Role Status Dates Dr. Rafael Herrera MD Primary Care Provider Active Start: May 22, 2024 End: May 22, 2024 Dr. Gabe Birmingham MD Attending Provider Active Start: May 22, 2024 End: May 22, 2024 Dr. Gabe Birmingham MD Referring Provider Active Start: May 22, 2024 End: May 22, 2024 Team Status: Inactive Member Role Status Dates Dr. Rafael Herrera MD Primary Care Provider Active Start: June 03, 2024 End: June 03, 2024 Dr. Rafael Herrera MD Referring Provider Active Start: June 03, 2024 End: June 03, 2024 Dr. Gabe Birmingham MD Attending Provider Active Start: June 03, 2024 End: June 03, 2024 Team Status: Inactive Member Role Status Dates Dr. Rafael Herrera MD Primary Care Provider Active Start: June 03, 2024 End: June 03, 2024 Dr. Gabe Birmingham MD Attending Provider Active Start: June 03, 2024 End: June 03, 2024 Dr. Gabe Birmingham MD Referring Provider Active Start: June 03, 2024 End: June 03, 2024 Associate Dean Relationship Specialty Start Date End Date Rafael Herrera MD [address] [facility] [address] [place] [address] PCP - General Family Medicine 11/18/21 Team Status: Active Member Role/Relationship Status Dates Dr. Rafael Herrera MD Primary Care Provider Active Team Status: Inactive Member Role/Relationship Status Dates Dr. Rafael Herrera MD Primary Care Provider Active Start: October 20, 2024 End: October 20, 2024 Dr. Rafael Herrera MD Referring Provider Active Start: October 20, 2024 End: October 20, 2024 Dr. Cecilio Perea MD Attending Provider Active Start: October 20, 2024 End: October 20, 2024 Goals (unrecognized section and content) Goals may be documented in a n alternate sectionGoals may be documented in an alternate sectionGoals may be documented in an alternate sectionGoals may be documented in an alternate sectionGoals may be documented in an alternate sectionGoals may be documented in an alternate sectionGoals may be documented in an alternate sectionGoals may be documented in an alternate sectionGoals may be documented in an alternate section INFORMATION SOURCE (unrecogn ized section and content) DATE CREATED AUTHOR 07/18/2024 [facility] DATE CREATED AUTHOR AUTHOR'S NANCY RIVERA 10/29/2024 [facility] FOR RECORDS PERTAINING TO PATIENTS WHO ARE [...] BE BASED ON THE PRIMARY CLINICAL RECORDS. [employer] provides no warranty or guarantee of the accuracy or completeness of information in this document.
== END | disposition home or self-care (01) ==
LOC: PSN 12:04
PROVIDERS: PCP Family Medicine; Referring Provider Psychiatry & Neurology Neurology; Visit Provider Psychiatry & Neurology Neurology
DX: I49.9 Cardiac arrhythmia, unspecified (principal)
CPT/HCPCS: 93005

== ENCOUNTER → 2025-02-27 | Outpatient (CLI) | payer MEDICARE, SELFPAY ==
--- NOTE | 2025-02-27 12:34 | BI_ITS ---
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 Bilateral Breast Mammographic Findings: No significant masses, calcifications or other abnormalities are identified. BI/SCRN MAMM (CAD)W/EDUAR BILAT IMPRESSION: No mammographic evidence of malignancy in either breast. OVERALL FINAL ASSESSMENT BI-RADS 1: NEGATIVE. RECOMMENDATION: Routine annual follow-up in 1 Year Additional Recommendation none A letter with findings and recommendations will be mailed to the patient. Reading Location: [id number]
== END | disposition home or self-care (01) ==
LOC: OPBI 12:30
PROVIDERS: PCP Family Medicine; Referring Provider Family Medicine; Visit Provider Family Medicine
DX: Z12.31 Encounter for screening mammogram for malignant neoplasm of breast (principal)
CPT/HCPCS: 77063; 77067